=== PATIENT | female | born 1975 | race Two or more races ===

== ENCOUNTER 2020-10-02 11:54 | Outpatient (REF) | payer OTHER, SELFPAY ==
[2020-10-02 13:41] LABS: Folate 5.6 ng/mL (> or = 4.0); Vitamin B12 1102 pg/mL (200-900)
[2020-10-05 23:13] LABS: Vitamin D 25-OH, D2 14 ng/mL; Vitamin D 25-OH, D3 6 ng/mL; Vitamin D 25-OH, Total 20 ng/mL (30-100)
== END 2020-10-02 11:55 | disposition home or self-care (01) ==
LOC: HO.LAB 11:54
PROVIDERS: PCP Internal Medicine; Visit Provider Internal Medicine
DX: E53.8 Deficiency of other specified B group vitamins (principal); E55.9 Vitamin D deficiency, unspecified
CPT/HCPCS: 36415; 82306; 82607; 82746

== ENCOUNTER → 2020-10-15 13:55 | Outpatient (REF) | payer OTHER, SELFPAY ==
--- NOTE | 2020-10-15 14:00 | ECG_ITS ---
Hook-up date: 2020-10-15 14:05:00 Duration: 25:01:00 Test Indications: SYNCOPE Medications: [id number] QRS complexes 1 Ventricular ectopics which represent <1 % of total QRS comp. 5 Supraventricular ectopics which represent <1 % of total QRS comp. * Paced QRS complexs which represent % of total QRS comp. VENTRICULAR ECTOPY 1 Isolated 0 Bigeminal Cycles 0 Couplets 0 Runs 0 Beats in Runs * Beats LONGEST at * BPM at :: -- * Beats FASTEST at * BPM at :: -- SUPRAVENTRICULAR ECTOPY 3 Isolated 1 Couplets 0 Runs 0 Beats in Runs * Beats LONGEST at * BPM at :: -- * Beats FASTEST at * BPM at :: -- HEART RATES 61 MIN at 08:10:25 2020-10-16 88 AVG 177 MAX at 21:03:57 2020-10-15 LONGEST RR 1.1120 secs at 06:00:35 2020-10-16 S-T LEVELS Channel 1 - 128 mm at 14:05:00 2020-10-15 - 128 mm at 14:05:00 2020-10-15 Channel 2 - 128 mm at 14:05:00 2020-10-15 - 128 mm at 14:05:00 2020-10-15 Channel 3 - 128 mm at 03:32:41 -- - 128 mm at 03:32:41 Basic rhythm Normal sinus rhythm No long pause or profound bradycardia Rare Premature atrial complexes One 17 beat run of PACs c/w PAF No diary submitted Referred By: Aly Garcia Overread By: KRISTOFER AUGUSTIN MD
== END ==
LOC: HO.CARD 13:55
PROVIDERS: PCP Internal Medicine; Visit Provider Psychiatry & Neurology Neurology
DX: R55 Syncope and collapse (principal)
CPT/HCPCS: 93225; 93226

== ENCOUNTER 2020-10-18 13:00 | Outpatient (REF) | payer OTHER, SELFPAY ==
--- NOTE | 2020-10-18 13:05 | XR_ITS ---
EXAMINATION: XR LUMBOSACRAL SPINE CLINICAL INFORMATION: Lower back pain COMPARISON: 04/04/2013 TECHNIQUE: Three views of the lumbosacral spine. FINDINGS: No fracture or subluxation. Vertebral body height and alignment is maintained. Disc spaces are maintained. The sacroiliac joints are symmetric. The sacrum appears intact. The bowel gas pattern is unremarkable. Right upper quadrant surgical clips. XR/XR lumbar spine 2-3V IMPRESSION: Normal appearance of the lumbar spine.
--- NOTE | 2020-10-18 13:06 | CT_ITS ---
EXAMINATION: CT HEAD WITHOUT CONTRAST CLINICAL INFORMATION: Syncope COMPARISON: MRI 12/17/2018 TECHNIQUE: Contiguous axial imaging was performed from the skull base to vertex without intravenous contrast. This CT examination was performed using dose optimization techniques as appropriate, variously including the following: * Automated exposure control * Adjustment of mA and/or kV according to patient size (this includes techniques or standardized protocols for targeted exams where dose is matched to indication/reason for exam; i.e. extremities or head) Use of iterative reconstruction technique DLP: 669 mGy-cm. FINDINGS: There is no evidence of acute intracranial hemorrhage or territorial infarction. No abnormal mass effect or midline shift is seen. [place] to white matter differentiation is well preserved. No extra-axial fluid collections are identified. No hydrocephalus. No significant volume loss. There is no abnormal attenuation within the brain parenchyma. The osseous structures and soft tissues are normal. Mild opacification of the left posterior ethmoid air cells. The mastoid air cells and visualized portions of the paranasal sinuses are otherwise well aerated. CT/CT head/brain wo con IMPRESSION: No acute intracranial pathology.
== END 2020-10-18 13:01 | disposition home or self-care (01) ==
LOC: HO.CT 13:00
PROVIDERS: PCP Internal Medicine; Visit Provider Psychiatry & Neurology Neurology
DX: R55 Syncope and collapse (principal); M54.5 Low back pain
CPT/HCPCS: 70450; 72100

== ENCOUNTER 2021-01-11 16:22 | Emergency (ER) | payer OTHER, SELFPAY ==
[2021-01-11 17:59] VITALS: BP 143/95; PULSE 80; RESP 18; TEMP 36.8; O2SAT 98; BMI 37.1
[2021-01-11 18:11] LABS: MANUAL DIFF FLAG NO
[2021-01-11 18:34] LABS: Basophils Percent Auto 0.4 % (0-2); Eosinophils Absolute Auto 0.2 X10*3/uL (0.0-0.4); Hematocrit 34.5 % (37-47); Hemoglobin 11.5 g/dl (12.0-16.0); Imm Gran Abs Auto 0.03 X10*3/uL (0.00-0.03); Imm Gran Pct Auto 0.5 % (0.0-0.4); Lymphocytes Absolute Auto 2.1 X10*3/uL (1.2-4.9); Lymphocytes Percent Auto 37.3 % (20-40); Mean Corpuscular HGB Conc 33.3 g/dl (31.0-35.0); Mean Corpuscular Hemoglobin 33.2 pg (27.0-33.0); Mean Corpuscular Volume 99.7 fL (80-98); Mean Platelet Volume 10.2 fL (9.4-12.3); Monocytes Absolute Auto 0.6 X10*3/uL (0.1-1.2); Monocytes Percent Auto 10.3 % (2-11); Neutrophils Absolute Auto 2.6 X10*3/uL (2.0-8.3); Neutrophils Percent Auto 47.5 % (45-73); Platelet Count 281 X10*3/uL (160-400); Red Blood Count 3.46 X10*6/uL (4.20-5.50); Red Cell Distribution Width 12.6 % (11.0-16.0); White Blood Count 5.5 X10*3/uL (4.8-10.8)
[2021-01-11 18:37] LABS: Alanine Aminotransferase 13 U/L (0-31); Albumin Level 3.6 g/dL (3.5-5.0); Alkaline Phosphatase 76 U/L (39-117); Anion Gap 12 (12-20); Aspartate Amino Transferase 14 U/L (5-31); Bilirubin Total 0.4 mg/dL (0.0-1.0); Blood Urea Nitrogen 9 mg/dL (9-16); Calcium 8.7 mg/dL (8.4-10.2); Carbon Dioxide 26 mmol/L (22-29); Chloride 105 mmol/L (96-108); Creatinine Clr Calc Pharmacy 120.4; Estimated Glomerular Filt Rate > 60; Glucose Random 101 mg/dL (60-115); Potassium 4.1 mmol/L (3.3-5.1); Sodium 139 mmol/L (135-145); Total Protein 6.9 g/dL (6.5-8.0)
[2021-01-11 18:37] LABS: Glucose Urine UA NEG (NEG); Leukocyte Esterase Urine NEG (NEG); Nitrite Urine NEG (NEG); Specific Gravity - Urine >= 1.030 (1.005-1.025); Urine Blood 3+ (NEG); Urine Ketones NEG (NEG); Urine Protein TRACE MG/DL (NEG-TRACE)
[2021-01-11 18:43] LABS: Appearance Urine CLEAR; Color Urine YELLOW
[2021-01-11 18:44] LABS: UPreg QC Valid YES; Urine Pregnancy NEGATIVE (NEGATIVE)
[2021-01-11 19:02] LABS: Bacteria Urine TRACE /LPF; Squamous Epithelial Cell Urine TRACE /LPF; WBC Urine 0-2 /HPF (0-4)
--- NOTE | 2021-01-11 19:19 | ED_ITS ---
HPI - Female Genitourinary General Chief complaint: Vaginal Bleeding Stated complaint: vag bleeding Time Seen by Provider: 01/11/21 18:26 Source: patient Mode of arrival: ambulatory Limitations: no limitations History of Present Illness HPI Narrative: 45 y/o female with history of depression, anxiety, obesity, GERD, vertigo, syncope, leucopenia who presents to the ED with heavy vaginal bleeding for 3 days. She states she got the COVID vaccine 2 weeks ago, and has had some spotting since then. She reports the bleeding increased significantly the last 3 days with clots and cramping. She denies chance of . No fever, chills, N/V/D or constipation. No urinary symptoms. No SOB, dizziness, chest pain or sy ncope. She reports she is still getting her menses regularly once per month. This is the heaviest she has bled in 6 years when she had a similar episode of bleeding. At that time she was prescribed OCP with improvement. She has been off OCP for a few years without any issues. MD elicited complaint: vaginal bleeding Pertinent past history: tubal ligation Onset (ago): day(s) (3) Location of symptoms: vaginal Severity: severe Female Urogenital Radiation: Non-Radiating Severity scale (1-10): 8 Quality of pain: cramping Consistency: intermittent Vaginal discharge: none Vaginal bleeding: heavy, dark red and clots Exacerbating factors: none Relieving factors: none Associated symptoms: abdominal pain Treatment prior to arrival: none Sexual activity: No Patient : No Related Data Home Medications Medication Instructions Recorded Confirmed ergocalciferol (vitamin D2) 50 mcg 50 mcg PO DAILY 08/06/20 12/04/20 (2,000 unit) tablet escitalopram oxalate 10 mg tablet 10 mg PO DAILY 08/06/20 12/04/20 BuSpar 45 mg PO DAILY 11/02/20 12/04/20 Previous Rx's Medication Instructions Recorded meclizine 25 mg tablet 25 mg PO DAILY PRN 30 Days #30 tab 08/06/20 omeprazole 20 mg capsule,delayed 20 mg PO DAILY 90 Days #90 cap 12/04/20 release Allergies Allergy/AdvReac Type Severity Reaction Status Date / Time No Known Allergies Allergy Verified 12/04/20 13:41 Review of Systems Review of Systems: Constitutional: No Fever, No Chills Cardiovascular: No Chest Pain, No SOB Respiratory: No Cough, No Sputum Gastrointestinal: No Nausea, No Vomiting, No Diarrhea, + abdominal Pain Genitourinary: No Dysuria, No Urinary Frequency, No Hematuria, +Vaginal bleeding Musculoskeletal: No joint pain, No Myalgias Skin: No Skin Lesions, No rash Neuro: No Weakness, No Numbness, No Dizziness, + Headache Heme/Lymph: No Bruising, No Lymphadenopathy PMFSH Past Medical History Attestation statement: The following information was validated with the patient. Medical History Atypical mole B12 deficiency Depression with anxiety GERD (gastroesophageal reflux disease) Hypovitaminosis D Insomnia Low back pain Obese Syncope Vertigo Surgical History History of section History of laparoscopic cholecystectomy History of tooth extraction History of tubal ligation Family History Family History Father CHF (congestive heart failure) Myocardial infarction Diabetes Mother Diabetes Hypertension Family/Other FH: uterine cancer Leukemia Social History Social History Alcohol intake: never Smoking Status: Never smoker Tobacco Type: Cigarette Packs Per Day: 1 Years Smoked: 5 Use of substances other than those prescribed or required for medical reasons: No Advance Directives: No Advance Directives Information Provided: No Physical Exam Vital Signs: Vital Signs: Last Vital Signs Temp 98.3 F 01/11/21 17:59 Pulse 80 01/11/21 17:59 Resp 18 01/11/21 17:59 BP 143/95 H 01/11/21 17:59 Pulse Ox 98 01/11/21 17:59 Body Mass Index 37.1 Appearance: Alert. Oriented X3. No acute distress. Eyes: Pupils equal, round and reactive to light. ENT: Pharynx normal. Neck: Normal inspection. Neck supple. CVS: Normal heart rate and rhythm. Pulses normal. Respiratory: No respiratory distress. Breath sounds normal. Abdomen: Soft with mild lower abdominal tenderness. No rebound or guarding. +BS x4 Pelvic: moderate amount of dark blood in vaginal vault, originating from cervical os, no vaginal lesions, no tenderness. no vaginal discharge Skin: Skin warm and dry. Normal skin color. Normal skin turgor. No rashes. Extremities: No lower extremity edema. Neuro: Oriented X 3. Non-focal. Speaks in clear sentences. Course Course Course Narrative: 45 y/o female s/p tubal ligation in the past presenting with heavy vaginal bleeding for the last 3 days with associated cramping and 2 weeks of spotting prior. Blood counts today are stable from 2 months ago. Her VS are stable. Her exam showed a small amount of bleeding without clots. Pad currently dry and she had been in the ER for >1 hour. She is stable for discharge with plan to f/u with [facility] next week. She would prefer to stay off of OCP's. Given warning signs to come back to the ER, patient agrees with plan. MDM - Female Genitourinary Lab Data Result diagrams: 01/11/21 18:05 01/11/21 18:05 Labs: Lab Results 01/11/21 01/11/21 01/11/21 Range/Units 18:05 18:05 18:05 WBC 5.5 (4.8-10.8) X10*3/uL RBC 3.46 L (4.20-5.50) X10*6/uL Hgb 11.5 L (12.0-16.0) g/dl Hct 34.5 L (37-47) % MCV 99.7 H (80-98) fL MCH 33.2 H (27.0-33.0) pg MCHC 33.3 (31.0-35.0) g/dl RDW 12.6 (11.0-16.0) % Plt Count 281 (160-400) X10*3/uL MPV 10.2 (9.4-12.3) fL Immature Gran % (Auto) 0.5 H (0.0-0.4) % Neut % (Auto) 47.5 (45-73) % Lymph % (Auto) 37.3 (20-40) % [place] % (Auto) 10.3 (2-11) % Eos % (Auto) 4.0 (0-4) % Baso % (Auto) 0.4 (0-2) % Lymph # (Auto) 2.1 (1.2-4.9) X10*3/uL [place] # (Auto) 0.6 (0.1-1.2) X10*3/uL Eos # (Auto) 0.2 (0.0-0.4) X10*3/uL Baso # (Auto) 0.0 (0.0-0.2) X10*3/uL Abs Immat Gran (auto) 0.03 (0.00-0.03) X10*3/uL Absolute Neuts (auto) 2.6 (2.0-8.3) X10*3/uL Absolute Nucleated RBC 0.000 (0.0-0.012) X10*3/uL Nucleated RBC % (auto) 0.0 (0.0-0.2) /100WBC Hold Blue Top SEE NOTE Sodium 139 (135-145) mmol/L Potassium 4.1 (3.3-5.1) mmol/L Chloride 105 (96-108) mmol/L Carbon Dioxide 26 (22-29) mmol/L Anion Gap 12 (12-20) BUN 9 (9-16) mg/dL Creatinine 0.72 (0.5-1.4) mg/dL Estim Creat Clear Calc 120.4 Estimated GFR > 60 Random Glucose 101 (60-115) mg/dL Calcium 8.7 (8.4-10.2) mg/dL Total Bilirubin 0.4 (0.0-1.0) mg/dL AST 14 (5-31) U/L ALT 13 (0-31) U/L Alkaline Phosphatase 76 (39-117) U/L Total Protein 6.9 (6.5-8.0) g/dL Albumin 3.6 (3.5-5.0) g/dL Urine Color Urine Appearance Urine pH (5.0-8.0) Ur Specific [place] (1.005-1.025) Urine Protein (NEG-TRACE) MG/DL Urine Glucose (UA) (NEG) MG/DL Urine Ketones (NEG) MG/DL Urine Blood (NEG) Urine Nitrite (NEG) Ur Leukocyte Esterase (NEG) Urine RBC (0) /HPF Urine WBC (0-4) /HPF Ur Squamous Epith Cells /LPF Urine Bacteria /LPF Urine Test (NEGATIVE) 01/11/21 01/11/21 Range/Units 18:23 18:23 WBC (4.8-10.8) X10*3/uL RBC (4.20-5.50) X10*6/uL Hgb (12.0-16.0) g/dl Hct (37-47) % MCV (80-98) fL MCH (27.0-33.0) pg MCHC (31.0-35.0) g/dl RDW (11.0-16.0) % Plt Count (160-400) X10*3/uL MPV (9.4-12.3) fL Immature Gran % (Auto) (0.0-0.4) % Neut % (Auto) (45-73) % Lymph % (Auto) (20-40) % [place] % (Auto) (2-11) % Eos % (Auto) (0-4) % Baso % (Auto) (0-2) % Lymph # (Auto) (1.2-4.9) X10*3/uL [place] # (Auto) (0.1-1.2) X10*3/uL Eos # (Auto) (0.0-0.4) X10*3/uL Baso # (Auto) (0.0-0.2) X10*3/uL Abs Immat Gran (auto) (0.00-0.03) X10*3/uL Absolute Neuts (auto) (2.0-8.3) X10*3/uL Absolute Nucleated RBC (0.0-0.012) X10*3/uL Nucleated RBC % (auto) (0.0-0.2) /100WBC Hold Blue Top Sodium (135-145) mmol/L Potassium (3.3-5.1) mmol/L Chloride (96-108) mmol/L Carbon Dioxide (22-29) mmol/L Anion Gap (12-20) BUN (9-16) mg/dL Creatinine (0.5-1.4) mg/dL Estim Creat Clear Calc Estimated GFR Random Glucose (60-115) mg/dL Calcium (8.4-10.2) mg/dL Total Bilirubin (0.0-1.0) mg/dL AST (5-31) U/L ALT (0-31) U/L Alkaline Phosphatase (39-117) U/L Total Protein (6.5-8.0) g/dL Albumin (3.5-5.0) g/dL Urine Color YELLOW Urine Appearance CLEAR Urine pH 6.0 (5.0-8.0) Ur Specific [place] >= 1.030 H (1.005-1.025) Urine Protein TRACE (NEG-TRACE) MG/DL Urine Glucose (UA) NEG (NEG) MG/DL Urine Ketones NEG (NEG) MG/DL Urine Blood 3+ H (NEG) Urine Nitrite NEG (NEG) Ur Leukocyte Esterase NEG (NEG) Urine RBC 5-9 H (0) /HPF Urine WBC 0-2 (0-4) /HPF Ur Squamous Epith Cells TRACE /LPF Urine Bacteria TRACE /LPF Urine Test NEGATIVE (NEGATIVE) Critical Care Time Critical Care Time Critical Care Time: No Discharge Plan Discharge Clinical Impression: Vaginal bleeding Patient Disposition: Home, Self-Care Instructions: Dysfunctional Uterine Bleeding (ED) Additional Instructions: Your blood counts today are stable from your blood counts done 2 months ago. Your exam today did not show any significant bleeding or clots. Recommend Tylenol and/or Motrin as needed for cramping. Recommend following up with [facility] next week. If you have worsening bleeding associated with chest pain, dizziness, shortness of breath or worsening pain come back to the ER for further evaluation. Prescriptions: No Action BuSpar 45 mg PO DAILY RF: 0 escitalopram oxalate 10 mg tablet 10 mg PO DAILY RF: 0 ergocalciferol (vitamin D2) 50 mcg (2,000 unit) tablet 50 mcg PO DAILY RF: 0 meclizine 25 mg tablet 25 mg PO DAILY PRN (Reason: motion sickness) 30 Days Qty: 30 RF: 6 omeprazole 20 mg capsule,delayed release(DR/EC) 20 mg PO DAILY 90 Days Qty: 90 RF: 1 Referrals: Rex Blake MD [Physician] - 2 days (DUB)
[2021-01-11] MEDS: Acetaminophen 325 MG TABLET 975 MG PO (19:24)
== END 2021-01-11 20:23 | disposition home or self-care (01) ==
PROVIDERS: Emergency Provider Internal Medicine; PCP Internal Medicine
DX: N93.9 Abnormal uterine and vaginal bleeding, unspecified (principal); R10.9 Unspecified abdominal pain; F17.210 Nicotine dependence, cigarettes, uncomplicated
CPT/HCPCS: 36415; 80053; 81001; 81025; 85025; 99283; 99285

== ENCOUNTER 2021-01-21 11:00 | Outpatient (REF) | payer OTHER, SELFPAY ==
[2021-01-21 12:26] LABS: Hematocrit 32.6 % (37-47); Hemoglobin 10.4 g/dl (12.0-16.0); Mean Corpuscular HGB Conc 31.9 g/dl (31.0-35.0); Mean Corpuscular Hemoglobin 31.9 pg (27.0-33.0); Mean Platelet Volume 9.9 fL (9.4-12.3); Platelet Count 331 X10*3/uL (160-400); Red Blood Count 3.26 X10*6/uL (4.20-5.50); Red Cell Distribution Width 12.5 % (11.0-16.0); White Blood Count 5.6 X10*3/uL (4.8-10.8)
[2021-01-21 13:40] LABS: HCG Quantitative < 2 mIU/mL; Thyroid Stimulating Hormone 1.97 uIU/mL (0.32-4.0)
[2021-01-22 06:00] LABS: CT PCR NOT DETECTED (Not Detect.); NG PCR NOT DETECTED (Not Detect.)
[2021-01-23 21:57] LABS: HPV mRNA E6/E7 rflx Not Detected (Not Detected)
== END 2021-01-21 11:01 | disposition home or self-care (01) ==
LOC: HO.LAB 11:00
PROVIDERS: PCP Internal Medicine; Visit Provider Obstetrics & Gynecology
DX: Z01.419 Encounter for gynecological examination (general) (routine) without abnormal findings (principal); Z11.51 Encounter for screening for human papillomavirus (HPV); Z11.3 Encounter for screening for infections with a predominantly sexual mode of transmission; N92.1 Excessive and frequent menstruation with irregular cycle
CPT/HCPCS: 36415; 84443; 84702; 85027; 87491; 87591; 87624; 88142

== ENCOUNTER 2021-02-05 13:48 | Outpatient (REF) | payer OTHER, SELFPAY | END 2021-02-05 13:49 | disposition home or self-care (01) | LOC: HO.LAB 13:48 | PROVIDERS: PCP Internal Medicine; Visit Provider Obstetrics & Gynecology | DX: N92.1 Excessive and frequent menstruation with irregular cycle (principal); E53.8 Deficiency of other specified B group vitamins; E55.9 Vitamin D deficiency, unspecified; E66.9 Obesity, unspecified; Z68.37 Body mass index [BMI] 37.0-37.9, adult; Z98.51 Tubal ligation status | CPT/HCPCS: 58100; 88305 ==

== ENCOUNTER 2021-03-04 15:07 | Outpatient (REF) | payer OTHER, SELFPAY ==
--- NOTE | ~2021-03-04 | US_ITS ---
EXAMINATION: PELVIC ULTRASOUND CLINICAL INFORMATION: Excessive/frequent menstruation COMPARISON: Previous pelvic ultrasound November 2016 TECHNIQUE: Transabdominal and transvaginal pelvic ultrasound was performed. Transvaginal exam was performed for better visualization of the uterus and ovaries. FINDINGS: The uterus is anteverted and measures 10.1 x 5 x 5.1 cm in dimension. There is a 2.7 x 2.1 x 2.3 cm hypoechoic lesion in the posterior uterine fundus suggestive of a fibroid that is similar to November 2016 exam. This measured 2.4 x 1.9 x 2.3 cm on 2017 exam and does not appear appreciably changed. No other focal uterine lesion is seen. Endometrial thickness is normal measuring 0.9 cm. There are nabothian cysts in the cervix.. The right ovary measures 3.1 x 2.5 x 2.9 cm. There is a 1.5 x 1.5 x 1 cm simple cyst. There is a complex multiloculated cystic structure in the right adnexa measuring approximately 1 x 4 cm. Appearance is questionable for a complex multiloculated adnexal or paraovarian cyst versus possible hydrosalpinx. This is new compared to previous exam November 2016. The left ovary is normal-appearing and measures 3.1 x 2.6 x 2.6 cm. There is no fluid in the pelvis. US/US transvaginal IMPRESSION: 2.7 x 2.1 x 2.3 cm fundal uterine fibroid. Normal thickness endometrium. 1.5 x 1.5 x 1 cm simple right ovarian cyst. 1 x 4 cm multiloculated right adnexal cyst versus hydrosalpinx. This is new from 2017 exam.
--- NOTE | ~2021-03-04 | MM_ITS ---
EXAMINATION: MM SCREENING DIGITAL BREAST TOMOSYNTHESIS, BILATERAL CLINICAL INFORMATION: Screening. Asymptomatic. The lifetime risk of breast cancer based on the Tyrer-Cuzick Model is 9%. COMPARISON: Mammography: 12/24/2018, 11/27/2017, 11/24/2017, 05/16/2016 TECHNIQUE: Digital breast tomosynthesis is performed in both the craniocaudal and mediolateral oblique views along with computer-aided detection (CAD). Synthesized 2D images are generated from the tomosynthesis. FINDINGS: The breasts are extremely dense, which lowers the sensitivity of mammography (ACR BI-RADS breast composition Category d). There are no significant masses, abnormal calcifications, or other abnormalities. Parenchymal pattern is similar to prior exams. No developing density. The axilla and skin contours are unremarkable. MM/MM tomosynthesis screening BI IMPRESSION: No mammographic evidence of malignancy. ASSESSMENT: BI-RADS 1: Negative RECOMMENDATION: Routine annual mammography screening. This patient's information was entered into a reminder system with a target due date for their next mammogram.
--- NOTE | ~2021-03-04 | US_ITS ---
EXAMINATION: PELVIC ULTRASOUND CLINICAL INFORMATION: Excessive/frequent menstruation COMPARISON: Previous pelvic ultrasound November 2016 TECHNIQUE: Transabdominal and transvaginal pelvic ultrasound was performed. Transvaginal exam was performed for better visualization of the uterus and ovaries. FINDINGS: The uterus is anteverted and measures 10.1 x 5 x 5.1 cm in dimension. There is a 2.7 x 2.1 x 2.3 cm hypoechoic lesion in the posterior uterine fundus suggestive of a fibroid that is similar to November 2016 exam. This measured 2.4 x 1.9 x 2.3 cm on 2017 exam and does not appear appreciably changed. No other focal uterine lesion is seen. Endometrial thickness is normal measuring 0.9 cm. There are nabothian cysts in the cervix.. The right ovary measures 3.1 x 2.5 x 2.9 cm. There is a 1.5 x 1.5 x 1 cm simple cyst. There is a complex multiloculated cystic structure in the right adnexa measuring approximately 1 x 4 cm. Appearance is questionable for a complex multiloculated adnexal or paraovarian cyst versus possible hydrosalpinx. This is new compared to previous exam November 2016. The left ovary is normal-appearing and measures 3.1 x 2.6 x 2.6 cm. There is no fluid in the pelvis. US/US pelvic complete IMPRESSION: 2.7 x 2.1 x 2.3 cm fundal uterine fibroid. Normal thickness endometrium. 1.5 x 1.5 x 1 cm simple right ovarian cyst. 1 x 4 cm multiloculated right adnexal cyst versus hydrosalpinx. This is new from 2017 exam.
== END 2021-03-04 15:08 | disposition home or self-care (01) ==
LOC: HO.MAMMO 15:07
PROVIDERS: Visit Provider Obstetrics & Gynecology
DX: Z12.31 Encounter for screening mammogram for malignant neoplasm of breast (principal); N92.1 Excessive and frequent menstruation with irregular cycle
CPT/HCPCS: 76830; 76856; 77063; 77067

== ENCOUNTER → 2021-03-11 11:41 | Outpatient (BNVA) | payer OTHER, SELFPAY | PROVIDERS: PCP Internal Medicine; Visit Provider Obstetrics & Gynecology ==

== ENCOUNTER 2021-06-10 10:14 | Outpatient (REF) | payer OTHER, SELFPAY ==
--- NOTE | ~2021-06-10 | US_ITS ---
EXAMINATION: US PELVIS CLINICAL INFORMATION: Follow-up ovarian cyst COMPARISON: Previous pelvic ultrasound most recent February 2021 TECHNIQUE: Ultrasound of the pelvis is performed using both transabdominal and transvaginal transducers along with Doppler. Transvaginal imaging is performed due to inadequate visualization transabdominally. FINDINGS: Is anteverted and measures 9.3 x 5.2 x 5.5 cm in dimension. There is a 2.4 x 2.3 x 2.4 cm posterior fundal uterine fibroid. No other focal uterine lesion is seen. Endometrial thickness is normal measuring 2 mm. There is a nabothian cyst in the cervix. The right ovary measures 3.3 x 2.1 x 1.9 cm. There is a bilobed right adnexal cyst measuring 2.9 x 1.6 x 1.8 cm. This is slightly decreased from 4 x 1 x 1.5 cm on previous exam. The left ovary is normal-appearing and measures 2.8 x 1.5 x 2.6 cm. There is no fluid in the pelvis. US/US pelvic and transvaginal IMPRESSION: Interval decrease in right adnexal cyst now measuring 2.9 x 1.6 x 1.6 cm compared to 4 x 1 x 1.5 cm on 03/04/2021 exam. Small fundal uterine fibroid.
[2021-06-10 10:52] LABS: Hematocrit 34.4 % (37-47); Mean Corpuscular Hemoglobin 30.4 pg (27.0-33.0); Mean Platelet Volume 9.8 fL (9.4-12.3); Platelet Count 347 X10*3/uL (160-400); Red Blood Count 3.62 X10*6/uL (4.20-5.50); Red Cell Distribution Width 14.8 % (11.0-16.0); White Blood Count 5.1 X10*3/uL (4.8-10.8)
[2021-06-10 11:27] LABS: Alanine Aminotransferase 12 U/L (0-31); Albumin Level 3.5 g/dL (3.5-5.0); Alkaline Phosphatase 74 U/L (39-117); Anion Gap 10 (12-20); Aspartate Amino Transferase 13 U/L (5-31); Bilirubin Total 0.3 mg/dL (0.0-1.0); Blood Urea Nitrogen 10 mg/dL (9-16); Calcium 8.3 mg/dL (8.4-10.2); Carbon Dioxide 25 mmol/L (22-29); Chloride 106 mmol/L (96-108); Cholesterol 149 mg/dL; Estimated Glomerular Filt Rate > 60; Glucose Fasting 104 mg/dL (60-99); HDL Cholesterol 39 mg/dL; Iron 53 mcg/dL (30-160); LDL Cholesterol Calculated 101 mg/dl; Percent Iron Saturation 18 % (15-50); Potassium 4.1 mmol/L (3.3-5.1); Sodium 137 mmol/L (135-145); Total Iron Binding Capacity 297 mcg/dL (228-428); Total Protein 6.7 g/dL (6.5-8.0); Triglycerides 47 mg/dL; Unsaturated Iron Binding 244 ug/dL
[2021-06-10 12:26] LABS: Folate 5.2 ng/mL (> or = 4.0); Vitamin B12 708 pg/mL (200-900)
[2021-06-11 18:17] LABS: CA-125 9 U/mL (<35)
[2021-06-14 14:02] LABS: Vitamin D 25-OH, D2 7 ng/mL; Vitamin D 25-OH, D3 18 ng/mL; Vitamin D 25-OH, Total 25 ng/mL (30-100)
== END 2021-06-10 10:15 | disposition home or self-care (01) ==
LOC: HO.US 10:14
PROVIDERS: Absent Provider Internal Medicine; PCP Internal Medicine; Visit Provider Obstetrics & Gynecology
DX: D64.9 Anemia, unspecified (principal); E55.9 Vitamin D deficiency, unspecified; E66.9 Obesity, unspecified; E78.5 Hyperlipidemia, unspecified; N83.299 Other ovarian cyst, unspecified side
CPT/HCPCS: 36415; 76830; 76856; 80053; 80061; 82306; 82607; 82746; 83540; 85027; 86304

== ENCOUNTER → 2021-06-24 11:48 | Outpatient (BNVA) | payer OTHER, SELFPAY | PROVIDERS: Visit Provider Obstetrics & Gynecology ==

== ENCOUNTER 2021-09-25 13:22 | Outpatient (REF) | payer OTHER, SELFPAY ==
[2021-09-25 15:33] LABS: MANUAL DIFF FLAG NO
[2021-09-25 16:14] LABS: Basophils Percent Auto 0.2 % (0-2); Eosinophils Absolute Auto 0.3 X10*3/uL (0.0-0.4); Eosinophils Percent Auto 6.4 % (0-4); Hematocrit 30.7 % (37.0-47.0); Hemoglobin 9.9 g/dl (12.0-16.0); Imm Gran Abs Auto 0.01 X10*3/uL (0.00-0.03); Imm Gran Pct Auto 0.2 % (0.0-0.4); Lymphocytes Absolute Auto 1.9 X10*3/uL (1.2-4.9); Lymphocytes Percent Auto 44.3 % (20-40); Mean Corpuscular HGB Conc 32.2 g/dl (31.0-35.0); Mean Corpuscular Hemoglobin 32.2 pg (27.0-33.0); Mean Platelet Volume 10.5 fL (9.4-12.3); Monocytes Absolute Auto 0.3 X10*3/uL (0.1-1.2); Monocytes Percent Auto 7.8 % (2-11); Neutrophils Absolute Auto 1.8 x10*3/uL (2.0-8.3); Neutrophils Percent Auto 41.1 % (45-73); Platelet Count 271 X10*3/uL (160-400); Red Blood Count 3.07 X10*6/uL (4.20-5.50); Red Cell Distribution Width 12.7 % (11.0-16.0); White Blood Count 4.4 X10*3/uL (4.8-10.8)
[2021-09-25 16:46] LABS: HCG Quantitative < 2 mIU/mL; Thyroid Stimulating Hormone 1.37 uIU/mL (0.32-4.0)
== END 2021-09-25 13:23 | disposition home or self-care (01) ==
LOC: HO.LAB 13:22
PROVIDERS: PCP Internal Medicine; Visit Provider Obstetrics & Gynecology
DX: N92.1 Excessive and frequent menstruation with irregular cycle (principal); U07.1 COVID-19; N83.299 Other ovarian cyst, unspecified side; E53.8 Deficiency of other specified B group vitamins; E55.9 Vitamin D deficiency, unspecified; E66.01 Morbid (severe) obesity due to excess calories; F41.8 Other specified anxiety disorders; Z68.37 Body mass index [BMI] 37.0-37.9, adult; Z87.891 Personal history of nicotine dependence; Z90.49 Acquired absence of other specified parts of digestive tract; Z98.51 Tubal ligation status; Z83.3 Family history of diabetes mellitus; Z82.49 Family history of ischemic heart disease and other diseases of the circulatory system; Z80.49 Family history of malignant neoplasm of other genital organs
CPT/HCPCS: 36415; 84443; 84702; 85025

== ENCOUNTER → 2021-10-15 10:55 | Outpatient (BNVA) | payer OTHER, SELFPAY | PROVIDERS: PCP Internal Medicine; Visit Provider Obstetrics & Gynecology | DX: N92.1 Excessive and frequent menstruation with irregular cycle (principal) | CPT/HCPCS: 99212 ==

== ENCOUNTER 2021-10-18 13:44 | Outpatient (REF) | payer OTHER, SELFPAY ==
--- NOTE | 2021-10-18 16:25 | MHC.AU.ANR ---
Adult Audiological Evaluation Date of Visit: 10/18/21 Health Data Analyst Used: Nigerian- By Phone Reason for Appointment: Patient was seen for concerns of gradual hearing loss. She reports having to turn the television up loud and asks for repetitions often. She also reports having difficulties understanding speech on the phone or in groups. She states that her grandfather and cousin were both diagnosed with hearing loss while they were younger. She reports some balance issues, but denies having a better ear or tinnitus. Does patient feel they have a hearing loss?: Yes If Yes, Which Ear?: Both Ears Has hearing been tested previously?: No Ear History: Family History of Hearing Loss?: Yes: Grandfather and cousins from a young age Medical History: Medical History: Dizziness or Unsteadiness Medical History (Other): Anemia Allergies: No known allergies Medication List: [BuSpar 45 mg PO DAILY], ergocalciferol (vitamin D2) 50 mcg PO DAILY 90 days, escitalopram oxalate 10 mg PO DAILY, ferrous sulfate 325 mg PO DAILY 30 days, meclizine 25 mg PO DAILY 30 days PRN, medroxyprogesterone (Provera) 10 mg PO DAILY 30 days, omeprazole 20 mg PO DAILY 90 days Otoscopy: Right Ear: Unremarkable Left Ear: Unremarkable Tympanometry: Tympanometry performed due to: To assess integrity of the middle ear system Right Ear: Hypercompliant Middle Ear System (Type Ad) Left Ear: Hypercompliant Middle Ear System (Type Ad) Hearing Evaluation: Transducer(s) Used: Insert Earphones, Bone Conduction Method: Conventional Audiometry Stimuli Used: Pure Tones Right Ear: Description of Hearing: Mild sloping to a moderate sensorineural hearing loss from 250 to 1000 Hz, rising to within normal limits through 8000 Hz thereafter. Left Ear: Description of Hearing: Mild sloping to a moderate sensorineural hearing loss from 250 to 4000 Hz, rising to a mild sensorineural hearing loss through 8000 Hz thereafter. Speech Recognition Threshold (SRT): Method Used: Recorded Lists Stimuli Used: Nigerian Trisyllable Words Right Ear: 45 dB HL Left Ear: 40 dB HL Word Discrimination: Method: Recorded Lists Word Lists Used: Lista Bisil?bica (Nigerian) Right Ear: 100% at 80 dB HL Left Ear: 100% at 80 dB HL Interpretation of Results: Mild to moderate sensorineural hearing loss. Patient would benefit from the use of bilateral hearing devices. Recommendations: Audiological re-evaluation in one year. Trial with amplification is recommended. Medical clearance from a physician is required before fitting. Hearing Aid Fitting will be scheduled when all materials arrive. Patient is interested in trying hearing aids. Discussed options and patient would like to try TATE style hearing aids binaurally. Return for hearing aid fitting once medical clearance is obtained and devices have arrived. An audiological re-evaluation is recommended in one year to monitor any changes in hearing. Diagnosis: Primary Diagnosis: H90.3 Bilateral Sensorineural Hearing Loss Services Performed: Services Performed: Comprehensive Audiological Evaluation (CPT 58661) Tympanometry (CPT 81795) Signature: Student/Clinical Fellow: Yes: Ana Gilmore B.A., [employer] Supply Chain Analyst I have reviewed/agreed with student/fellow documentation: Yes Provider: Rogers Neves, [facility]
--- NOTE | 2021-10-18 16:27 | MHC.AU.MED ---
Medical Clearance for Hearing Instrumentation Date: 10/18/21 Patient Name: Marquita Grady Date of : 1975 Referring Provider: Pili Rudd MD We have seen your patient on 10/18/21 and have determined that they are a candidate for amplification (See accompanying report). Specifically, they would benefit from: Hearing aid use in both ears There is a statute that addresses Medical Evaluation Requirements prior to fitting a patient with a hearing aid. According to [place] statute 265 CMR:6.03(1), (a) General. Except as provided in 265 CMR 6.03(1)(b), a wood room supervisor shall not sell a hearing aid unless the prospective user has presented to the wood room supervisor a written statement signed by a licensed physician that states that the patient's hearing loss has been medically evaluated and the patient may be considered a candidate for a hearing aid. The medical evaluation must have taken place within the preceding six months. Please note: Due to the [place] Statute referenced above, we cannot accept a signature other than that of a licensed physician. COMMUNICATIONS DEPARTMENT HEAD and [place] signatures cannot be accepted. I am in agreement with the above recommendation. There is no medical contraindication for hearing instrumentation. Physician Signature Date Physician Name (Printed)
--- NOTE | 2021-10-18 16:27 | MHC.AU.HAS ---
Hearing Aid Evaluation Date of Visit: 10/18/21 Electrician Elevator Maintenance Used: Maltese- By Phone Historical Information: Description of Hearing: Mild to moderate sensorineural hearing loss bilaterally. Current personal amplification information, if applicable: None Summary: Based on type and degree of hearing loss, as well as patient's shared hearing difficulties, binaural amplification is recommended to help facilitate improved communication. Discussed hearing aid styles and technologies. She is interested in trying TATE style rechargeable hearing aids. She is interested in streaming with her iPhone. Hearing Aid Prescription: Based on the individual?s shared listening needs, communication environments, dexterity, desire for connectivity, and personal preferences, the following prescription for amplification has been made: Right ear: Tobacco Wetter: Phonak Model: Audeo P70-R Battery Size: Rechargeable Color: P4 Semiconductor Packages Platemaker: 0 M Left ear: Left ear prescription to be same as Right Hearing Aid above: Tobacco Wetter: Phonak Model: Audeo P70-R Battery Size: Rechargeable Color: P4 [employer] Packages Platemaker: 0 M Action Taken/Action Needed: Medical Clearance to be requested from PCP/ENT. Hearing Instrument Fitting to be scheduled when materials arrive. Hearing aids will be ordered once MD clearance is received. Primary Diagnosis: H90.3 Bilateral Sensorineural Hearing Loss Signature: Student/Clinical Fellow: Yes: Ana Gilmore B.A., Rogers Traffic Survey Technician I have reviewed/agreed with student/fellow documentation: Yes Provider: Rogers Neves, [facility]
== END 2021-10-18 13:45 | disposition home or self-care (01) ==
LOC: HO.SH 13:44
PROVIDERS: Visit Provider Internal Medicine
DX: Z01.118 Encounter for examination of ears and hearing with other abnormal findings (principal); Z46.1 Encounter for fitting and adjustment of hearing aid; H90.3 Sensorineural hearing loss, bilateral
CPT/HCPCS: 92557; 92567; 92591

== ENCOUNTER 2021-10-30 14:21 | Outpatient (REF) | payer OTHER, SELFPAY | END 2021-10-30 14:22 | disposition home or self-care (01) | LOC: HO.HAP 14:21 | PROVIDERS: Visit Provider Internal Medicine | DX: Z46.1 Encounter for fitting and adjustment of hearing aid (principal); H90.3 Sensorineural hearing loss, bilateral | CPT/HCPCS: V5011; V5020; V5160; V5261 ==

== ENCOUNTER 2021-11-14 13:51 | Outpatient (REF) | payer OTHER, SELFPAY | END 2021-11-14 13:52 | disposition home or self-care (01) | LOC: HO.HAP 13:51 | PROVIDERS: Visit Provider Internal Medicine | DX: Z13.89 Encounter for screening for other disorder (principal) ==

== ENCOUNTER 2021-11-19 07:16 | Outpatient (REF) | payer OTHER, SELFPAY | END 2021-11-19 07:17 | disposition home or self-care (01) | LOC: HO.MDS 07:16 | PROVIDERS: PCP Internal Medicine; Visit Provider Internal Medicine | DX: D50.9 Iron deficiency anemia, unspecified (principal) | CPT/HCPCS: 96365; 96366; J1200; J1750; Q0163 ==

== ENCOUNTER 2022-03-18 12:19 | Outpatient (REF) | payer OTHER, SELFPAY ==
--- NOTE | ~2022-03-18 | US_ITS ---
EXAMINATION: US PELVIS CLINICAL INFORMATION: Ovarian cyst COMPARISON: Previous pelvic ultrasound most recent May 2021 TECHNIQUE: Ultrasound of the pelvis is performed using both transabdominal and transvaginal transducers along with Doppler. Transvaginal imaging is performed due to inadequate visualization transabdominally. FINDINGS: The uterus is anteverted and measures 10.6 x 5.1 x 6.7 cm in dimension. There is a hypoechoic lesion in the right uterine fundus measuring 2.3 x 2 x 2.5 cm that is suggestive of a fibroid. Endometrial thickness is upper normal measuring 1.5 cm. There are nabothian cysts in the cervix. The right ovary is enlarged and measures 6.4 x 5.2 x 4.7 cm. There are 2 adjacent right ovarian cysts measuring 3.5 x 3.2 x 3.4 cm and 4.5 x 3.4 x 3.5 cm that are new. There is an adjacent paraovarian or adnexal simple cyst measuring 2.5 x 1.9 x 2.8 cm that is similar to previous exam. The left ovary is normal-appearing and measures 2.9 x 2.8 x 1.7 cm. There is no fluid in the pelvis. US/US pelvic and transvaginal IMPRESSION: Enlarged right ovary and 2 new cysts measuring 3.5 x 3.2 x 3.4 cm and 4.5 x 3.4 x 3.5 cm. Stable right adnexal or paraovarian cyst measuring 2.5 x 1.9 x 2.8 cm.
== END 2022-03-18 12:20 | disposition home or self-care (01) ==
LOC: HO.US 12:19
PROVIDERS: PCP Internal Medicine; Visit Provider Obstetrics & Gynecology
DX: N83.299 Other ovarian cyst, unspecified side (principal)
CPT/HCPCS: 76830; 76856

== ENCOUNTER → 2022-04-01 10:03 | Outpatient (BNVA) | payer OTHER, SELFPAY | PROVIDERS: PCP Internal Medicine; Visit Provider Obstetrics & Gynecology | DX: N83.299 Other ovarian cyst, unspecified side (principal); D21.9 Benign neoplasm of connective and other soft tissue, unspecified; N92.1 Excessive and frequent menstruation with irregular cycle | CPT/HCPCS: 99212 ==

== ENCOUNTER 2022-04-09 18:54 | Outpatient (REF) | payer OTHER, SELFPAY ==
--- NOTE | ~2022-04-09 | MR_ITS ---
EXAMINATION: MRI PELVIS WITH AND WITHOUT CONTRAST CLINICAL INFORMATION: Other ovarian cyst. The patient describes right lower quadrant pain and heavy menstrual bleeding COMPARISON: Ultrasound 03/18/2022 TECHNIQUE: Multiple routine MRI sequences through the pelvis were obtained on a high-field 1.5 Anay MRI before and after the uneventful administration of 10 mL of Gadavist gadolinium-based IV contrast. FINDINGS: UTERUS: Anteverted uterus has a normal configuration and measures 8.8 x 5.7 x 5.8 cm (ymiiwt-bc-[id number] x anterior-posterior x transverse). The endometrial stripe is normal for the stage of the patient's menstrual cycle, 1.3 cm in thickness (date of last menstrual period 03/23/2022, exam performed 04/09/2022). Junctional zone is normal in signal and thickness. There is a 2 cm dark T2 structure in the posterior uterine fundus consistent with a leiomyoma. There is a lower uterine segment section scar. CERVIX: Normal. VAGINA: There is a 2.8 cm unilocular cystic structure in the left posterior vaginal fornix. This could represent an exophytic nabothian cyst or more likely a vaginal wall cyst, such as a Medina's duct cyst. It is widely separate from the urethra. RIGHT OVARY: The right ovary measures 5 x 5 x 2.4 cm. There are multiple T2 bright physiologic follicular cysts measuring at most 2.4 cm in greatest dimension. One seen inferiorly may have a single thin septation. No suspicious or concerning features such as thick septations or mural nodules. LEFT OVARY: The left ovary measures 2.0 x 4.2 x 2.0 cm. There are several small subcentimeter T2 bright physiologic follicular cysts. Exophytic from the superior aspect of the ovary is a 1.5 cm cyst with several thin internal septations. No thick septations or mural nodularity seen. KIDNEYS: Two normally positioned kidneys are seen. No hydronephrosis. BLADDER: Urinary bladder normal. PELVIC FREE FLUID: No free fluid or ascites. LYMPH NODES: No pathologically enlarged lymph nodes. OSSEOUS STRUCTURES: No acute or suspicious osseous abnormalities. MR/MR pelvis wo/w con IMPRESSION: Several physiologic follicular cysts are seen in the right ovary. These are expected physiologic findings in a reproductive age female patient for which no imaging follow-up would be recommended. In addition to several physiologic follicular cysts in the left ovary, there is a 1.5 cm cyst exophytic from the superior aspect of the left ovary with several thin internal septations. This is not the appearance of the simple physiologic cyst. Recommend follow-up MRI to assess for stability vs. resolution. 2.8 cm unilocular cyst in the left posterior vaginal fornix, most likely a vaginal wall cyst. 2 cm posterior fundal leiomyoma. section scar. The report will be called to the ordering clinician by a [place] Radiology Physician Nurse Navigator.
== END 2022-04-09 18:55 | disposition home or self-care (01) ==
LOC: HO.MRI 18:54
PROVIDERS: Visit Provider Obstetrics & Gynecology
DX: N83.299 Other ovarian cyst, unspecified side (principal)
CPT/HCPCS: 72197; A9585

== ENCOUNTER 2022-04-17 10:43 | Outpatient (REF) | payer OTHER, SELFPAY ==
[2022-04-17 11:04] LABS: MANUAL DIFF FLAG NO
[2022-04-17 12:17] LABS: Basophils Percent Auto 0.4 % (0-2); Eosinophils Absolute Auto 0.2 X10*3/uL (0.0-0.4); Eosinophils Percent Auto 4.4 % (0-4); Hematocrit 34.7 % (37.0-47.0); Hemoglobin 11.3 g/dl (12.0-16.0); Imm Gran Abs Auto 0.02 X10*3/uL (0.00-0.03); Imm Gran Pct Auto 0.4 % (0.0-0.4); Lymphocytes Absolute Auto 1.5 X10*3/uL (1.2-4.9); Mean Corpuscular HGB Conc 32.6 g/dl (31.0-35.0); Mean Corpuscular Hemoglobin 32.8 pg (27.0-33.0); Mean Corpuscular Volume 100.9 fL (80.0-98.0); Monocytes Absolute Auto 0.5 X10*3/uL (0.1-1.2); Monocytes Percent Auto 8.5 % (2-11); Neutrophils Absolute Auto 3.2 x10*3/uL (2.0-8.3); Neutrophils Percent Auto 58.3 % (45-73); Platelet Count 340 X10*3/uL (160-400); Red Blood Count 3.44 X10*6/uL (4.20-5.50); Red Cell Distribution Width 13.1 % (11.0-16.0); White Blood Count 5.5 X10*3/uL (4.8-10.8)
[2022-04-17 12:46] LABS: Alanine Aminotransferase 12 U/L (0-31); Albumin Level 3.8 g/dL (3.5-5.0); Alkaline Phosphatase 68 U/L (39-117); Anion Gap 11 (12-20); Aspartate Amino Transferase 12 U/L (5-31); Bilirubin Total 0.4 mg/dL (0.0-1.0); Blood Urea Nitrogen 6 mg/dL (9-16); Calcium 8.3 mg/dL (8.4-10.2); Carbon Dioxide 23 mmol/L (22-29); Chloride 106 mmol/L (96-108); Cholesterol 147 mg/dL; Estimated Glomerular Filt Rate > 60; Glucose Fasting 94 mg/dL (60-99); HDL Cholesterol 31 mg/dL; Iron 61 mcg/dL (30-160); LDL Cholesterol Calculated 105 mg/dl; Percent Iron Saturation 26 % (15-50); Potassium 3.9 mmol/L (3.3-5.1); Sodium 136 mmol/L (135-145); Total Iron Binding Capacity 237 mcg/dL (228-428); Total Protein 7.1 g/dL (6.5-8.0); Triglycerides 55 mg/dL; Unsaturated Iron Binding 176 ug/dL
[2022-04-19 09:01] LABS: CA-125 10 U/mL (<35)
[2022-04-22 15:56] LABS: Vitamin D 25-OH, D2 <4 ng/mL; Vitamin D 25-OH, D3 11 ng/mL; Vitamin D 25-OH, Total 11 ng/mL (30-100)
== END 2022-04-17 10:44 | disposition home or self-care (01) ==
LOC: HO.LAB 10:43
PROVIDERS: PCP Internal Medicine; Visit Provider Obstetrics & Gynecology
DX: Z00.00 Encounter for general adult medical examination without abnormal findings (principal); D64.9 Anemia, unspecified; E55.9 Vitamin D deficiency, unspecified; N83.299 Other ovarian cyst, unspecified side
CPT/HCPCS: 36415; 80053; 80061; 82306; 83540; 85025; 86304

== ENCOUNTER 2022-04-23 10:13 | Outpatient (REF) | payer OTHER, SELFPAY ==
--- NOTE | ~2022-04-23 | MM_ITS ---
EXAMINATION: MM SCREENING DIGITAL BREAST TOMOSYNTHESIS, BILATERAL CLINICAL INFORMATION: Screening. Asymptomatic. The lifetime risk of breast cancer based on the Tyrer-Cuzick Model is 8%. COMPARISON: Mammography: 03/04/2021, 12/24/2018, 11/27/2017 TECHNIQUE: Digital breast tomosynthesis is performed in both the craniocaudal and mediolateral oblique views along with computer-aided detection (CAD). Synthesized 2D images are generated from the tomosynthesis. FINDINGS: The breasts are extremely dense, which lowers the sensitivity of mammography (ACR BI-RADS breast composition Category d). Parenchymal pattern is similar to prior studies. No developing density, significant mass, architectural abnormality. No abnormal calcifications. The axilla and skin contours are unremarkable. No significant changes. MM/MM tomosynthesis screening BI IMPRESSION: No mammographic evidence of malignancy. ASSESSMENT: BI-RADS 1: Negative RECOMMENDATION: Routine annual mammography screening. This patient's information was entered into a reminder system with a target due date for their next mammogram.
== END 2022-04-23 10:14 | disposition home or self-care (01) ==
LOC: HO.MAMMO 10:13
PROVIDERS: PCP Internal Medicine; Visit Provider Internal Medicine
DX: Z12.31 Encounter for screening mammogram for malignant neoplasm of breast (principal)
CPT/HCPCS: 77063; 77067

== ENCOUNTER → 2022-04-24 11:02 | Outpatient (BNVA) | payer OTHER, SELFPAY | PROVIDERS: PCP Internal Medicine; Visit Provider Obstetrics & Gynecology | DX: N83.299 Other ovarian cyst, unspecified side (principal) | CPT/HCPCS: 99212 ==

== ENCOUNTER 2022-05-19 13:50 | Outpatient (REF) | payer OTHER, SELFPAY | END 2022-05-19 13:51 | disposition home or self-care (01) | LOC: HO.SH 13:50 | PROVIDERS: Visit Provider Internal Medicine | DX: Z13.89 Encounter for screening for other disorder (principal) ==

== ENCOUNTER 2022-07-07 10:23 | Outpatient (REF) | payer OTHER, SELFPAY ==
--- NOTE | 2022-07-07 12:19 | MHC.AU.HFU ---
Hearing Instrument Follow-Up- Binaural Date of Visit: 07/07/22 Right Ear: Asset Management Analyst: Phonak Audeo P70-R SN: [id number] Color: P4 Repair Warranty: 01/18/2025 Loss and Damage Warranty: Used 2021 Battery Size: Rechargeable Private Mortgage Banker Safe: 0 M Type of Mold: Medium open dome Type of Wax Guard: Cerushield Dispensed By: [facility] Date of Fittin10/30/2021 Left Ear: Asset Management Analyst: Phonak Audeo P70-R SN: [id number] Color: P4 Repair Warranty: 01/18/2025 Loss and Damage Warranty: Used 2021 Battery Size: Rechargeable Private Mortgage Banker Safe: 0 M Type of Mold: Medium open dome Type of Wax Guard: Cerushield Dispensed By: [facility] Date of Fittin10/30/2021 Follow-Up Summary: Interpreted by [facility] Powder And Primer Canning Leader: Susannah Juárez returned to pick up and delivery driver her loss and damage replacement hearing aids and ceramic research engineer with power supply. Her hearing aids were reprogrammed using her previous settings. Feedback manager occupational was performed. Marquita reported good overall sound quality and comfortable volume. Reviewed importance of consistent use in reacclimating to the hearing aids. Reexplained care, use, and maintenance including changing wax guard and dome. Discussed charging, LED light indicators, manually turning on/off, and volume control. Practiced insertion and removal. Marquita reported that she does not need assistance pairing the hearing aids to her cellphone and can do it herself at home. Recommendations: Hearing instrument maintenance in 6 months, or sooner if needed. Marquita will call if problems arise. Diagnosis Code(s): Primary Diagnosis: H90.3 Bilateral Sensorineural Hearing Loss Signature: Provider: Barbara Pickard, [facility]
== END 2022-07-07 10:24 | disposition home or self-care (01) ==
LOC: HO.HAP 10:23
PROVIDERS: Visit Provider Internal Medicine
DX: Z13.89 Encounter for screening for other disorder (principal)

== ENCOUNTER 2022-07-10 16:07 | Outpatient (REF) | payer OTHER, SELFPAY ==
--- NOTE | ~2022-07-10 | XR_ITS ---
EXAMINATION: XR SHOULDER, LEFT CLINICAL INFORMATION: Pain in left shoulder COMPARISON: None TECHNIQUE: AP external rotation, Grashey, scapular Y, and axillary views of the left shoulder. FINDINGS: The bones and soft tissues are normal. No fracture. Glenohumeral and acromioclavicular alignment is anatomic with normal joint space. No abnormal soft tissue calcifications. XR/XR shoulder LT min 2V IMPRESSION: No acute osseous abnormality of the left shoulder.
[2022-07-10 16:30] LABS: MANUAL DIFF FLAG NO
[2022-07-10 16:43] LABS: Basophils Percent Auto 0.4 % (0-2); Eosinophils Absolute Auto 0.2 X10*3/uL (0.0-0.4); Eosinophils Percent Auto 3.3 % (0-4); Hematocrit 36.9 % (37.0-47.0); Hemoglobin 12.2 g/dl (12.0-16.0); Imm Gran Abs Auto 0.01 X10*3/uL (0.00-0.03); Imm Gran Pct Auto 0.2 % (0.0-0.4); Lymphocytes Percent Auto 37.5 % (20-40); Mean Corpuscular HGB Conc 33.1 g/dl (31.0-35.0); Mean Corpuscular Hemoglobin 32.4 pg (27.0-33.0); Mean Corpuscular Volume 97.9 fL (80.0-98.0); Mean Platelet Volume 9.9 fL (9.4-12.3); Monocytes Absolute Auto 0.5 X10*3/uL (0.1-1.2); Monocytes Percent Auto 9.2 % (2-11); Neutrophils Absolute Auto 2.6 x10*3/uL (2.0-8.3); Neutrophils Percent Auto 49.4 % (45-73); Platelet Count 302 X10*3/uL (160-400); Red Blood Count 3.77 X10*6/uL (4.20-5.50); Red Cell Distribution Width 12.6 % (11.0-16.0); White Blood Count 5.2 X10*3/uL (4.8-10.8)
[2022-07-10 17:02] LABS: Iron 76 mcg/dL (30-160); Percent Iron Saturation 29 % (15-50); Total Iron Binding Capacity 265 mcg/dL (228-428); Unsaturated Iron Binding 189 ug/dL
[2022-07-10 17:22] LABS: Vitamin D 25-OH Total 14.5 ng/mL (>30)
== END 2022-07-10 16:08 | disposition home or self-care (01) ==
LOC: HO.LAB 16:07
PROVIDERS: Visit Provider Internal Medicine
DX: E55.9 Vitamin D deficiency, unspecified (principal); D64.9 Anemia, unspecified; M25.512 Pain in left shoulder
CPT/HCPCS: 36415; 73030; 82306; 83540; 85025

== ENCOUNTER 2022-08-13 19:14 | Emergency (ER) | payer OTHER, SELFPAY ==
--- NOTE | ~2022-08-13 | XR_ITS ---
EXAMINATION: XR CHEST CLINICAL INFORMATION: Cough. Chest wall pain. COMPARISON: 01-03-2014 TECHNIQUE: 2 views of the chest were obtained. FINDINGS: Normal symmetric lung volumes. No parenchymal consolidation. No pleural effusion. No pneumothorax. Cardiomediastinal silhouette and pulmonary vascularity are within normal limits. No acute osseous abnormalities. XR/XR chest 2V IMPRESSION: No acute findings
[2022-08-13 19:57] VITALS: BP 143/91; PULSE 120; RESP 20; TEMP 37.1; O2SAT 99; BMI 37.1
[2022-08-13] MEDS: Ibuprofen 400 MG TABLET PO (20:38)
[2022-08-13] MEDS: Acetaminophen 325 MG TABLET 975 MG PO (20:38)
[2022-08-13] MEDS: Benzonatate 100 MG CAPSULE 200 MG PO (20:38)
[2022-08-13 20:47] LABS: Influenza A PCR NEGATIVE (Negative); Influenza B PCR NEGATIVE (Negative); Resp Syncy Virus RNA Qual PCR NEGATIVE (Negative); SARS COV2 PCR INHOUSE NEGATIVE (Negative)
--- NOTE | 2022-08-13 21:02 | ED_ITS ---
HPI - URI/Sore Throat General Chief Complaint: Upper Respiratory Symptoms Stated Complaint: Wheezing/Diff Breathing Time Seen by Provider: 08/13/22 20:00 Source: patient and diplomatic interpreter Mode of arrival: ambulatory History of Present Illness HPI Narrative: 47-year-old female with history and clinical presentation of body aches, cough, sore throat, headache and left ear pain. Otherwise she denies any fever, chills, GI or symptoms. Related Data Home Medications Medication Instructions Recorded Confirmed escitalopram oxalate 10 mg tablet 10 mg PO DAILY 08/06/20 07/10/22 (Lexapro) BuSpar 45 mg PO DAILY 11/02/20 07/10/22 Previous Rx's Medication Instructions Recorded ferrous sulfate 325 mg (65 mg 325 mg PO DAILY 30 days #30 tabs 08/12/21 iron) tablet,delayed release medroxyprogesterone 10 mg tablet 10 mg PO DAILY 30 days #30 tabs 04/01/22 (Provera) omeprazole 20 mg capsule,delayed 20 mg PO DAILY 90 days #90 caps 05/20/22 release ergocalciferol (vitamin D2) 50 mcg 50 mcg PO DAILY 90 days #90 tabs 07/10/22 (2,000 unit) tablet benzonatate 200 mg capsule 200 mg PO BID PRN cough #14 caps 08/13/22 ofloxacin 0.3 % ear drops 5 drp otic (ear) left BID 7 days 08/13/22 #10 mL Allergies Allergy/AdvReac Type Severity Reaction Status Date / Time No Known Allergies Allergy Verified 07/10/22 15:35 Review of Systems Review of Systems: Pertinent positives and negatives as stated in HPI 10 point review of systems is otherwise negative. [facility] Past Medical History Source: nursing notes reviewed Medical History Aphthous ulcer Atypical mole B12 deficiency Class 2 obesity with body mass index (BMI) of 37.0 to 37.9 in adult Depression with anxiety GERD (gastroesophageal reflux disease) Hearing loss Hypovitaminosis D Insomnia Lip lesion Low back pain Mild recurrent major depression Obese Physical exam Syncope Vertigo Surgical History History of section History of laparoscopic cholecystectomy History of tooth extraction History of tubal ligation Family History Family History Father CHF (congestive heart failure) Myocardial infarction Diabetes Mother Diabetes Hypertension Family/Other FH: uterine cancer Leukemia Social History Social History Household Members: Children Housing: House Are you a primary lawn care professional to a significant other at home: No Do you presently have visiting nurse or other home services: No Alcohol intake: current Alcohol intake frequency: a few times a month Alcohol type: beer and wine Patient Tobacco Use Status: Former Tobacco user Tobacco use type: Cigarette Cigarette Packs Per Day: 1 Years Smoked: 5 e-Cigarette/Vaping Use: Never Used Second Hand Smoke Exposure: No Advance Directives: No service: No Current occupational status: unemployed Cognitive needs: No Hearing needs: No Vision needs: No Physical Exam Vital Signs: Vital Signs: Last Vital Signs Temp 98.8 F 08/13/22 19:57 Pulse 120 H 08/13/22 19:57 Resp 20 08/13/22 19:57 BP 143/91 H 08/13/22 19:57 Pulse Ox 99 08/13/22 19:57 O2 Del Method 08/13/22 19:57 BMI result Body Mass Index 37.1 VITAL SIGNS: Reviewed. GENERAL: Well developed, well nourished, in no acute distress. HEAD: Normocephalic/atraumatic EYES: PERRLA, EOMI EARS: RIGHT- Ext canals without abnormality, TMs non-bulging and non- erythematous, LEFT-Ext canals without abnormality, TMs non-bulging but perfo rated NOSE: Nares patent bilateral OROPHARYNX: no oral lesions noted, posterior pharynx clear and non-erythematous without noted tonsillar enlargement/erythema/exudates NECK: Supple, no adenopathy LUNGS: Normal breath sounds, no tachypnea/with wheeze/rhonchi/rales. No adventitious sounds or accessory muscle use. SpO2<99> CARDIOVASCULAR: Regular rate and rhythm without noted murmurs ABDOMEN: Soft, non-tender, non-distended with bowel sounds. MUSCULOSKELETAL: No tenderness, deformities, or effusions noted on gross inspection. EXTREMITIES: No cyanosis, clubbing or edema. SKIN: Inspection of the skin reveals no rashes NEUROLOGIC: Alert and oriented x 4. Strength and sensation to light touch were grossly intact x 4. Course Course Course Narrative: 47-year-old female with history and clinical presentation consistent with upper respiratory infection to include cough which is likely responsible for the remaining symptoms such as headache as well as chest wall discomfort. There is nothing on clinical exam to suggest any acute respiratory issue and review of chest x-ray as well as viral testing is negative for acute findings. Patient will receive treatment for her ruptured TM and be discharged home in stable condition. Medications Administered Discontinued Medications Generic Name Dose Route Start Last Admin Trade Name Freq PRN Reason Stop Dose Admin Acetaminophen 975 mg 08/13/22 20:30 08/13/22 20:38 Acetaminophen 325 Mg Tablet PO 08/13/22 20:31 975 mg ONCE ONE Administration Benzonatate 200 mg 08/13/22 20:30 08/13/22 20:38 Benzonatate 100 Mg Capsule PO 08/13/22 20:31 200 mg ONCE ONE Administration Ibuprofen 400 mg 08/13/22 20:30 08/13/22 20:38 Ibuprofen 400 Mg Tablet PO 08/13/22 20:31 400 mg ONCE ONE Administration MDM - URI/Sore Throat Lab Data Labs: Lab Results 08/13/22 Range/Units 20:05 Influenza Type A (PCR) NEGATIVE (Negative) Influenza Type B (PCR) NEGATIVE (Negative) RSV RNA Qual (PCR) NEGATIVE (Negative) SARS-CoV-2 RNA (RT-PCR) NEGATIVE (Negative) Discharge Plan Discharge Clinical Impression: URI (upper respiratory infection), Tympanic membrane rupture Patient Disposition: Home, Self-Care Instructions: Ruptured Eardrum (ED), Upper Respiratory Infection (ED) Additional Instructions: 1. Reanudar todos los medicamentos caseros seg?n lo prescrito. [place] Tylenol/ibuprofen de venta sergio seg?n sea necesario para chase corporales, chase de bhavya. 2. Complete todo el curso de antibi?ticos para epperson o?do. 3. Recibi? dorinda receta para medicamentos para la tos. 4. Seguimiento con el proveedor de atenci?n primaria en los pr?ximos 1 a 2 d?as para la reevaluaci?n del manejo ambulatorio adicional. Regrese a la chintan de emergencias si los s?ntomas empeoran. Prescriptions: New ofloxacin 0.3 % drops 5 drp otic (ear) left BID 7 Days Qty: 10 0RF benzonatate 200 mg capsule 200 mg PO BID PRN (Reason: cough) Qty: 14 0RF No Action ferrous sulfate 325 mg (65 mg iron) tablet,delayed release (DR/EC) 325 mg PO DAILY 30 Days Qty: 30 1RF omeprazole 20 mg capsule,delayed release(DR/EC) 20 mg PO DAILY 90 Days Qty: 90 1RF ergocalciferol (vitamin D2) 50 mcg (2,000 unit) tablet 50 mcg PO DAILY 90 Days Qty: 90 1RF BuSpar 45 mg PO DAILY escitalopram oxalate [Lexapro] 10 mg tablet 10 mg PO DAILY medroxyprogesterone [Provera] 10 mg tablet 10 mg PO DAILY 30 Days Qty: 30 3RF Rx Instructions: start Provera 1 tablet daily from day 15-24 cyclically every months, day 1 being 1st day of menses Referrals: Pili Connell MD [Primary Care Provider] - Print Language: Andorran
[2022-08-13 21:04] VITALS: BP 131/84; PULSE 99; RESP 19; O2SAT 98
--- NOTE | 2022-08-13 21:21 | PC.NURSE ---
paper cup machine operator services utilized upon discharge. pt ambulatory at discharge. pt's significant other at bedside. discharge packet provided to pt at time of discharge. pt verbalized understanding of discharge plan
== END 2022-08-13 21:23 | disposition home or self-care (01) ==
PROVIDERS: Physician Assistant; Emergency Provider Student in an Organized Health Care Education/Training Program; PCP Internal Medicine
DX: J06.9 Acute upper respiratory infection, unspecified (principal); H72.92 Unspecified perforation of tympanic membrane, left ear; R06.02 Shortness of breath; M79.10 Myalgia, unspecified site; R05.9 Cough, unspecified; R51.9 Headache, unspecified; Z20.822 Contact with and (suspected) exposure to COVID-19; Z79.899 Other long term (current) drug therapy; Z87.891 Personal history of nicotine dependence
CPT/HCPCS: 0241U; 71046; 99283

== ENCOUNTER 2022-12-18 12:47 | Outpatient (REF) | payer OTHER, SELFPAY ==
[2022-12-18 15:09] LABS: Estimated Average Glucose 100 mg/dL; Hemoglobin A1c % 5.1 %
[2022-12-18 15:37] LABS: Folate 8.7 ng/mL (> or = 4.0); TSH reflex Free T4 2.55 uIU/mL (0.32-4.0); Vitamin B12 1223 pg/mL (200-900)
[2022-12-22 14:58] LABS: Transglutaminase Ab IgG <1.0 U/mL; Transglutaminase IgA <1.0 U/mL
[2022-12-23 16:15] LABS: Vitamin D 25-OH, D2 <4 ng/mL; Vitamin D 25-OH, D3 6 ng/mL; Vitamin D 25-OH, Total 6 ng/mL (30-100)
== END 2022-12-18 12:48 | disposition home or self-care (01) ==
LOC: HO.LAB 12:47
PROVIDERS: PCP Internal Medicine; Visit Provider Nurse Practitioner Family
DX: R19.7 Diarrhea, unspecified (principal); K59.00 Constipation, unspecified; E11.9 Type 2 diabetes mellitus without complications; E55.9 Vitamin D deficiency, unspecified; K21.9 Gastro-esophageal reflux disease without esophagitis; K58.2 Mixed irritable bowel syndrome; R10.13 Epigastric pain
CPT/HCPCS: 36415; 82306; 82607; 82746; 83036; 84443; 86364; 99202

== ENCOUNTER 2022-12-31 14:00 | Outpatient (RCR) | payer OTHER, SELFPAY ==
--- NOTE | 2022-10-28 12:36 | MHC.PT.EP ---
[facility] [place] [facility] [place] Office [place] Office [address] Elyssa Crisostomo [address] [phone] F: [phone] F: [phone] F: [phone] F: [phone] Physical Therapy Plan of Care Date of Evaluation: Date of Surgery: Diagnosis: L shoulder pain Assessment: Patient is a y.o. who is referred to PT by Dr. Pili Rudd with Dx of L shoulder pain. PT diagnosis is L shoulder subacromial impingement syndrome. Patient impairments include pain, limited ROM, and weakness. Patient current functional limitations are reaching behind her painful , unable to reach overhead, difficulty putting on shirts, cooking, and cleaning. Patient will benefit from skilled PT to address aforementioned impairments and functional limitations to meet established goals. Frequency and Duration: The patient will be seen 2x/week for 4 weeks Short Term Goals: 2 weeks Patient demonstrates consistency and independence with HEP to self manage symptoms. Patient presents with increased L shoulder ER 90 degrees to be able to reach behind her back for bathing. [employer] Goals: 4 weeks Patient presents with increased L shoulder flexion 170 degrees to reach overhead to cabinets. Patient presents with increased L shoulder flexion strength 4+/5 to be able to carry bag of groceries. Treatment Plan: Modalities to reduce pain, spasms and effusion. Manual therapy to restore motion and function. Therapeutic exercise to improve strength and flexibility. Neuromuscular re-education for posture and balance. Therapeutic activities to return to functional activities of daily living. Electronically signed by: Aruna Melo, PT, DPT Please sign and return to therapist. Thank you for your referral.
--- NOTE | 2023-01-06 11:23 | MHC.PT.DC ---
[facility] [place] Office [place] Office [place] Office [address] Elyssa Crisostomo [address] [phone] F: [phone] F: [phone] F: [phone] F: [phone] Physical Therapy Discharge Report Diagnosis: L shoulder pain Date of Surgery: Date of Evaluation: 10/27/22 Date of Discharge: 12/31/22 Treatments to Date: 9 Cancellations to Date: No Shows to Date: Discharge Status: Discharge Summary: Patient continues to present with high pain level, radicular sxs and limitations in both ROM and strength in L shoulder. Questionable RTC tear due to weakness and pain into abduction and ER. She does reports cervical traction reduces pain level but does not eliminate UE sxs. She may have overlyign adhesive capsulitis from limitations in ROM. I recommend further imaging, especially MRI, and referral to orthopedic. She is discharged from PT at this time for lack of progress. Electronically signed by: Aruna Melo, PT, DPT Please sign and return to therapist. Thank you for your referral.
== END 2023-01-06 12:46 | disposition home or self-care (01) ==
LOC: HO.PT 14:00
PROVIDERS: PCP Internal Medicine; Visit Provider Internal Medicine
DX: M25.512 Pain in left shoulder (principal)
CPT/HCPCS: 97012; 97110; 97140; 97161

== ENCOUNTER 2023-03-09 08:45 | Outpatient (REF) | payer OTHER, SELFPAY ==
--- NOTE | ~2023-03-09 | MR_ITS ---
EXAMINATION: MR SHOULDER WITHOUT CONTRAST, LEFT CLINICAL INFORMATION: Left shoulder pain and decreased range of motion. COMPARISON: Left shoulder radiographs dated 07/10/2022. TECHNIQUE: Multisequence MR imaging of the left shoulder was obtained without contrast on a high-field strength scanner. FINDINGS: ROTATOR CUFF: Increased T2 signal through the anterior aspect of the distal supraspinatus tendon, consistent with mild tendinosis. No measurable rotator cuff tendon tear. No muscle atrophy or fatty infiltration. BICEPS: Trace fluid within the proximal long head biceps tendon sheath which may represent normal variation versus minimal tenosynovitis. No transverse tendon tear or tendon retraction. CORACOACROMIAL ARCH: The undersurface of the acromion is curved with no subacromial spur. The acromioclavicular joint is normal. LABRUM/CAPSULE: No displaced labral tear. Minimal thickening and edema of the anteroinferior and anterosuperior joint capsule which could be seen in the setting of minimal adhesive capsulitis. GLENOHUMERAL JOINT/MARROW: Unremarkable. MR/MR shoulder LT wo con IMPRESSION: 1. Mild supraspinatus tendinosis without a measurable rotator cuff tendon tear. 2. Trace fluid within the proximal long head biceps tendon sheath which may represent normal variation versus minimal tenosynovitis. No transverse tendon tear or tendon retraction. 3. Minimal thickening and edema of the anteroinferior and anterosuperior joint capsule which could be seen in the setting of minimal adhesive capsulitis.
== END 2023-03-09 08:46 | disposition home or self-care (01) ==
LOC: HO.MRI 08:45
PROVIDERS: PCP Internal Medicine; Visit Provider Internal Medicine
DX: M25.512 Pain in left shoulder (principal)
CPT/HCPCS: 73221

== ENCOUNTER 2023-06-16 01:03 | Inpatient (IN) | payer OTHER, SELFPAY ==
[2023-06-16] VITALS (16 sets, daily range): BP systolic 101–167; BP diastolic 63–87; PULSE 74–97; RESP 16–18; TEMP 36.2–37.2; O2SAT 94–100; BMI 36.0; BMI 35.7
--- NOTE | ~2023-06-16 | CT_ITS ---
EXAMINATION: CT ABDOMEN AND PELVIS WITH CONTRAST CLINICAL INFORMATION: Abdominal pain, vomiting COMPARISON: None available. TECHNIQUE: Multidetector volumetric images were obtained from the superior aspect of the liver through the pubic symphysis following administration 85 mL of Omnipaque 350 intravenous contrast. Sagittal and coronal reformatted images were obtained on the technologist's workstation. Oral contrast: No This CT examination was performed using dose optimization techniques as appropriate, variously including the following: *Automated exposure control *Adjustment of mA and/or kV according to patient size (this includes techniques or standardized protocols for targeted exams where dose is matched to indication/reason for exam; i.e. extremities or head) *Use of iterative reconstruction technique DLP: 940 mGy-cm FINDINGS: LUNG BASES: The visualized lung bases are unremarkable. LIVER, GALLBLADDER, AND BILIARY TREE: The liver is normal in size, shape, and attenuation. Tiny hypodensity in the right lobe is too small to characterize, statistically likely a cyst. No biliary ductal dilatation is present. Patient is status post cholecystectomy. PANCREAS: Unremarkable. SPLEEN: Unremarkable. ADRENAL GLANDS: Unremarkable. KIDNEYS AND URETERS: Bilateral nephrograms are symmetric. No hydronephrosis or obstructing calculus identified. Subcentimeter hypodensity in the right kidney statistically favors a cyst; no follow-up recommended. BLADDER: Minimally distended and not well evaluated. GASTROINTESTINAL TRACT: There is moderate distention of the ascending colon, transverse colon, and proximal descending colon. There is relatively abrupt narrowing in the mid descending colon, with luminal collapse distal to this site. There is mild stranding in the left paracolic gutter at the location of narrowing. Appearance is concerning for colonic obstruction. Small bowel is nondilated. Appendix is suspected to be collapsed. No free fluid or free air is seen. ABDOMINAL WALL: No significant hernia is appreciated. LYMPH NODES: Normal. VASCULAR: Unremarkable. PELVIC VISCERA: Grossly unremarkable. OSSEOUS STRUCTURES: Unremarkable. CT/CT abdomen pelvis w IV con IMPRESSION: 1. Moderate distention of the ascending colon, transverse colon, and proximal descending colon. Relatively abrupt narrowing in the mid descending colon, with luminal collapse distal to this site. Appearance is suspicious for colonic obstruction. This could be due to benign or malignant in nature, and correlation with colonoscopy is recommended to assess for an underlying mass lesion. 2. Status post cholecystectomy.
[2023-06-16 01:38] LABS: MANUAL DIFF FLAG NO
[2023-06-16 01:40] LABS: Basophils Percent Auto 0.1 % (0-2); Eosinophils Absolute Auto 0.1 X10*3/uL (0.0-0.4); Eosinophils Percent Auto 1.7 % (0-4); Hematocrit 36.2 % (37.0-47.0); Imm Gran Abs Auto 0.01 X10*3/uL (0.00-0.03); Imm Gran Pct Auto 0.1 % (0.0-0.4); Lymphocytes Percent Auto 24.1 % (20-40); Mean Corpuscular HGB Conc 33.1 g/dl (31.0-35.0); Mean Corpuscular Hemoglobin 30.7 pg (27.0-33.0); Mean Corpuscular Volume 92.6 fL (80.0-98.0); Mean Platelet Volume 9.8 fL (9.4-12.3); Monocytes Absolute Auto 0.8 X10*3/uL (0.1-1.2); Monocytes Percent Auto 10.2 % (2-11); Neutrophils Absolute Auto 5.2 x10*3/uL (2.0-8.3); Neutrophils Percent Auto 63.8 % (45-73); Platelet Count 350 X10*3/uL (160-400); Red Blood Count 3.91 X10*6/uL (4.20-5.50); Red Cell Distribution Width 13.6 % (11.0-16.0); White Blood Count 8.2 X10*3/uL (4.8-10.8)
[2023-06-16] MEDS: 0.9 % Sodium Chloride 1,000 ML 999 ML IV ×2 (01:50→02:29)
[2023-06-16] MEDS: droPERidol 5 MG/2 ML VIAL 1.25 MG IVPUSH (01:50)
--- NOTE | 2023-06-16 01:57 | ED.ABDPAIN ---
HPI - Abdominal Pain General Chief Complaint: Abdominal Pain Stated Complaint: Vomiting/Abd pain Time Seen by Provider: 06/16/23 01:39 Source: patient, family, old records reviewed and transplant nurse Mode of arrival: ambulatory Limitations: no limitations History of Present Illness HPI narrative: 48 yo female with PMH of anemia, ovarian cysts, GERD, depression/anxiety prior and cholecystectomy who notes constipation x 3 days tonight she tried dulcolax 2 pills then at 10pm developed intense waves of lower abdominal cramps that were severe - no BM and no flatus along with nausea and multiple rounds of vomiting. She has not had an SBO before. MD elicited complaint: abdominal pain Pertinent past history: constipation Onset (ago): hour(s) (10pm) Pain Consistency: colicky Location: LUQ and RLQ Severity: severe Quality: cramping and stabbing Radiation: none Migration to: no migration Exacerbating factors: eating and movement Relieving factors: nothing Associated symptoms: nausea and vomiting Related Data Home Medications Medication Instructions Recorded Confirmed buspirone 15 mg tablet 15 mg PO TID 01/08/23 01/08/23 escitalopram oxalate 20 mg tablet 20 mg PO DAILY 01/08/23 01/08/23 zolpidem 10 mg tablet 10 mg PO BEDTIME PRN 01/08/23 01/08/23 Previous Rx's Medication Instructions Recorded medroxyprogesterone 10 mg tablet 10 mg PO DAILY 30 days #30 tabs 04/01/22 (Provera) ergocalciferol (vitamin D2) 50 mcg 50 mcg PO DAILY 90 days #90 tabs 07/10/22 (2,000 unit) tablet methylcellulose (laxative) 500 mg 500 mg PO DAILY #30 tabs 12/18/22 tablet (Citrucel) sennosides 8.6 mg tablet (Natural 17.2 mg (2 x 8.6 mg) PO BEDTIME 12/18/22 Senna Laxative) constipation #60 tabs omeprazole 20 mg capsule,delayed 20 mg PO DAILY 90 days #90 caps 12/19/22 release famotidine 20 mg tablet (Pepcid) 20 mg PO BEDTIME #90 tabs 02/11/23 ibuprofen 800 mg tablet 800 mg PO Q8H PRN pain 30 days #90 03/08/23 tabs Allergies Allergy/AdvReac Type Severity Reaction Status Date / Time No Known Allergies Allergy Verified 06/16/23 01:18 Review of Systems Review of Systems Constitutional : No Weight loss, No Fever, No Chills ENT/Mouth : No sore throat, No Rhinorrhea Eyes: No Swelling, No Redness Cardiovascular : No Chest Pain, No SOB, NoEdema Respiratory : No Cough, No Sputum, No Wheezing Gastrointestinal : Positive Nausea, Positive Vomiting, no Diarrhea, positive abdominal Pain, No Hematochezia, No Melena, pos constipation Genitourinary : No Dysuria, No Urinary Frequency, No Hematuria, No Urgency Musculoskeletal : No joint pain, No Myalgias, No Joint Swelling Skin : No Skin Lesions, No rash Neuro : No Weakness, No Numbness, No Dizziness, No Headache Psych : No Anxiety/Panic, No Depression Heme/Lymph: No Bruising, No Lymphadenopathy Endocrine : No Polyuria, No Polydipsia All other systems reviewed and are negative. [facility] Past Medical History Attestation statement: The following information was validated with the patient. Source: old records reviewed Medical History Hearing loss Lip lesion Physical exam Mild recurrent major depression Class 2 obesity with body mass index (BMI) of 37.0 to 37.9 in adult Aphthous ulcer Atypical mole Obese GERD (gastroesophageal reflux disease) Syncope Low back pain Vertigo Hypovitaminosis D B12 deficiency Insomnia Depression with anxiety Surgical History History of tooth extraction History of laparoscopic cholecystectomy History of section History of tubal ligation Family History Family History Father CHF (congestive heart failure) Myocardial infarction Diabetes Mother Diabetes Hypertension Family/Other FH: uterine cancer Leukemia Social History Social History Household Members: Children Housing: House Are you a primary rn acute care to a significant other at home: No Do you presently have visiting nurse or other home services: No Alcohol intake: current Alcohol intake frequency: a few times a month Alcohol type: beer and wine Patient Tobacco Use Status: Former Tobacco user Tobacco use type: Cigarette Cigarette Packs Per Day: 1 Years Smoked: 5 Smoked in Last 30 Days: No e-Cigarette/Vaping Use: Never Used Second Hand Smoke Exposure: No Use of substances other than those prescribed or required for medical reasons: No Advance Directives: No Advance Directives Information Provided: No service: No Current occupational status: unemployed Cognitive needs: No Hearing needs: No Vision needs: No Physical Exam ED Vital Signs: Vital Signs - 24 hr 06/16/23 01:11 06/16/23 02:14 06/16/23 03:27 Temperature 97.2 F 97.9 F 97.9 F Pulse Rate 97 78 94 Respiratory Rate 18 16 16 Blood Pressure 132/87 143/79 H 137/80 Pulse Oximetry 98 97 100 Oxygen Delivery Method Room Air Room Air Room Air 06/16/23 05:08 Temperature 98.1 F Pulse Rate 91 Respiratory Rate 16 Blood Pressure 124/77 Pulse Oximetry 98 Oxygen Delivery Method Room Air BMI result Body Mass Index 36.0 Appearance: Alert. Oriented X3. anxious in pain mild acute distress. Eyes: Pupils equal, round and reactive to light. ENT: Pharynx normal. Neck: Normal inspection. Neck supple. CVS: Normal heart rate and rhythm. Pulses normal. Respiratory: No respiratory distress. Breath sounds normal. Abdomen: Soft and ttp in lower abdomen moderate LLQ without rebound + guarding, distention noted lower abdomen Skin: Skin warm and dry. Normal skin color. Normal skin turgor. Extremities: No lower extremity edema. No calf ttp Neuro: Oriented X 3. No motor deficit. No sensory deficit. Course Course Course Narrative: pain improved with IV dilaudid Medical Decision Making Medical Decision Making MDM Narrative: 48 yo female with PMH of anemia, ovarian cysts, GERD, depression/anxiety prior and cholecystectomy here with intense abdominal pain and n/v after 3 days constipation and ingestion of 2 pills of dulcolax. at thist joselyn labs, lactic acid, CT scan for obstruction/renal colic - IV droperidol for vomiting and IV dilaudid for pain ordered. No prior hx of this. No known SBO in the past. Differential Diagnosis Differential Diagnoses: The differential diagnosis associated with the presentation includes renal colic, constipation, cyst, obstruction, volvulus, torsion Admission/Observation Consideration of admission/observation: Escalation of care including admission/observation considered admit for further management Consult Healthcare Provider Management of the patient was discussed with: Hospitalist (will admit) and Scientific Informatics Project Leader Dr. Ribeiro aware - consult GI will follow along Dr. Tobar notified Lab Data MDM Lab Attestation statement: I reviewed the patient's lab results. 06/16/23 01:35 06/16/23 01:35 Labs: Lab Results 06/16/23 06/16/23 06/16/23 Range/Units 01:35 02:12 03:59 WBC 8.2 (4.8-10.8) X10*3/uL RBC 3.91 L (4.20-5.50) X10*6/uL Hgb 12.0 (12.0-16.0) g/dl Hct 36.2 L (37.0-47.0) % MCV 92.6 (80.0-98.0) fL MCH 30.7 (27.0-33.0) pg MCHC 33.1 (31.0-35.0) g/dl RDW 13.6 (11.0-16.0) % Plt Count 350 (160-400) X10*3/uL MPV 9.8 (9.4-12.3) fL Immature Gran % (Auto) 0.1 (0.0-0.4) % Neut % (Auto) 63.8 (45-73) % Lymph % (Auto) 24.1 (20-40) % [place] % (Auto) 10.2 (2-11) % Eos % (Auto) 1.7 (0-4) % Baso % (Auto) 0.1 (0-2) % Lymph # (Auto) 2.0 (1.2-4.9) X10*3/uL [place] # (Auto) 0.8 (0.1-1.2) X10*3/uL Eos # (Auto) 0.1 (0.0-0.4) X10*3/uL Baso # (Auto) 0.0 (0.0-0.2) X10*3/uL Abs Immat Gran (auto) 0.01 (0.00-0.03) X10*3/uL Absolute Neuts (auto) 5.2 (2.0-8.3) x10*3/uL Absolute Nucleated RBC 0.000 (0.0-0.012) X10*3/uL Nucleated RBC % (auto) 0.0 (0.0-0.2) /100WBC Sodium 138 (135-145) mmol/L Potassium 3.5 (3.3-5.1) mmol/L Chloride 109 H (96-108) mmol/L Carbon Dioxide 18 L (22-29) mmol/L Anion Gap 15 (12-20) BUN 11 (9-16) mg/dL Creatinine 0.76 (0.5-1.4) mg/dL Estim Creat Clear Calc 112.5 Estimated GFR > 60 Random Glucose 148 H (60-115) mg/dL Lactic Acid 1.9 (0.5-2.0) mmol/L Calcium 8.9 D (8.4-10.2) mg/dL Total Bilirubin 0.4 (0.0-1.0) mg/dL Direct Bilirubin 0.2 (0.0-0.5) mg/dL AST 17 (5-31) U/L ALT 13 (0-31) U/L Alkaline Phosphatase 73 (39-117) U/L Total Protein 7.8 (6.5-8.0) g/dL Albumin 3.8 (3.5-5.0) g/dL Lipase 15 (8-78) U/L Urine Color Yellow Urine Appearance Clear Urine pH 6.0 (5.0-9.0) Ur Specific [place] >= 1.030 H (1.005-1.025) Urine Protein Negative (Neg-Trace) mg/dL Urine Glucose (UA) Negative (Negative) mg/dL Urine Ketones 15 (Negative) mg/dL Urine Blood Negative (Negative) Urine Nitrite Negative (Negative) Ur Leukocyte Esterase Trace H (Negative) Urine RBC 0-2 (0-2) /HPF Urine WBC 11-20 H (0-5) /HPF Ur Squamous Epith Cells 0-2 (0-2) /HPF Urine Bacteria 4+ (None Seen) Hyaline Casts 0-2 (0-2) /LPF Urine Opiates Screen Not Detected (Not Detect) Urine Fentanyl Screen Not Detected (Not Detect) Ur Barbiturates Screen Not Detected (Not Detect) Ur Phencyclidine Scrn Not Detected (Not Detect) Ur Amphetamines Screen Not Detected (Not Detect) U Benzodiazepines Scrn Not Detected (Not Detect) Urine Cocaine Screen Not Detected (Not Detect) U Marijuana (THC) Screen Not Detected (Not Detect) Independent Interpretation I performed an independent interpretation of an: CT Scan (obstruction) Radiology Impression Discussion of test interpretation with radiology: I have reviewed the radiologist's reading. Independent Historian Clinical information obtained from an independent historian. History obtained from or confirmed by: Spouse External Record Review External record reviewed: Inpatient record Medications Administered Generic Name Dose Route Start Last Admin Trade Name Freq PRN Reason Stop Dose Admin Sodium Chloride 1,000 mls @ 100 mls/hr 06/16/23 04:15 06/16/23 05:13 Ns IVCONT 100 mls/hr .Q10H DOMINIC Administration Sodium Chloride 3 ml 06/16/23 08:00 06/16/23 06:59 0.9 % Sodium Chloride Flush 3 Ml Syringe IVFLUSH Not Given QSHIFT DOMINIC Discontinued Medications Generic Name Dose Route Start Last Admin Trade Name Freq PRN Reason Stop Dose Admin Droperidol 1.25 mg 06/16/23 01:42 06/16/23 01:50 Droperidol 5 Mg/2 Ml Vial IVPUSH 06/16/23 01:43 1.25 mg ONCE ONE Administration Hydromorphone HCl 0.5 mg 06/16/23 02:17 06/16/23 02:27 Hydromorphone Hcl 0.5 Mg/0.5 Ml Syringe IVPUSH 06/16/23 02:18 0.5 mg ONCE ONE Administration Protocol Sodium Chloride 1,000 mls @ 999 mls/hr 06/16/23 01:45 06/16/23 05:21 Ns IV 06/16/23 02:45 Infused .Q1H1M DOMINIC Infusion Sodium Chloride 1,000 mls @ 999 mls/hr 06/16/23 02:15 06/16/23 05:21 Ns IV 06/16/23 03:15 Infused .Q1H1M DOMINIC Infusion Iohexol 85 ml 06/16/23 02:25 06/16/23 02:26 Iohexol 350 Mg/Ml 100 Ml Infus..Btl IV 06/16/23 02:26 85 ml ONCE ONE Administration Critical Care Time Critical Care Time Critical Care Time: Yes Total Critical Care Time: 35 Attestation: IVF pain improved with IV dilaudid, consults, admission I attest to this time spent taking care of the patient Discharge Plan Discharge Clinical Impression: Colonic obstruction Abdominal pain Qualifiers: Abdominal location: lower abdomen, unspecified Qualified Code(s): R10.30 - Lower abdominal pain, unspecified Vomiting Qualifiers: Vomiting type: unspecified Nausea presence: with nausea Qualified Code(s): R11.2 - Nausea with vomiting, unspecified Patient Disposition: Admitted As Inpatient
[2023-06-16 01:59] LABS: Alanine Aminotransferase 13 U/L (0-31); Albumin Level 3.8 g/dL (3.5-5.0); Alkaline Phosphatase 73 U/L (39-117); Anion Gap 15 (12-20); Aspartate Amino Transferase 17 U/L (5-31); Bilirubin Direct 0.2 mg/dL (0.0-0.5); Bilirubin Total 0.4 mg/dL (0.0-1.0); Blood Urea Nitrogen 11 mg/dL (9-16); Calcium 8.9 mg/dL (8.4-10.2); Carbon Dioxide 18 mmol/L (22-29); Chloride 109 mmol/L (96-108); Creatinine Clr Calc Pharmacy 112.5; Estimated Glomerular Filt Rate > 60; Glucose Random 148 mg/dL (60-115); Lipase 15 U/L (8-78); Potassium 3.5 mmol/L (3.3-5.1); Sodium 138 mmol/L (135-145); Total Protein 7.8 g/dL (6.5-8.0)
--- NOTE | 2023-06-16 02:18 | MHC.EDTECH ---
this pct just assumed care of pt ,vitals sign taken and lactic acid drawn and sent to lab .
[2023-06-16] MEDS: iohexoL 350 MG/ML 100 ML INFUS..BTL 85 ML IV (02:26)
[2023-06-16 02:27] LABS: Lactic Acid 1.9 mmol/L (0.5-2.0)
[2023-06-16] MEDS: HYDROmorphone HCl 0.5 MG/0.5 ML SYRINGE IVPUSH (02:27)
[2023-06-16 04:07] LABS: Appearance Urine Clear; Color Urine Yellow; Glucose Urine UA Negative (Negative); Leukocyte Esterase Urine Trace (Negative); Nitrite Urine Negative (Negative); Specific Gravity - Urine >= 1.030 (1.005-1.025); UMIC TRIGGER UACC YES; Urine Blood Negative (Negative); Urine Ketones 15 mg/dL (Negative); Urine Protein Negative (Neg-Trace)
[2023-06-16 04:17] LABS: Amphetamine Screen Urine Not Detected (Not Detect); Barbiturates, Urine Not Detected (Not Detect); Benzodiazepines Screen Urine Not Detected (Not Detect); Cannabinoid Screen Urine Not Detected (Not Detect); Cocaine Screen Urine Not Detected (Not Detect); Fentanyl, urine Not Detected (Not Detect); Opiate Screen Urine Not Detected (Not Detect); Phencyclidine Screen Urine Not Detected (Not Detect)
[2023-06-16 05:07] LABS: Bacteria Urine 4+ (None Seen); Hyaline Casts Urine 0-2 /LPF (0-2); RBC Urine 0-2 /HPF (0-2); Squamous Epithelial Cell Urine 0-2 /HPF (0-2); UACC Culture Trigger YES
[2023-06-16] MEDS: 0.9 % Sodium Chloride 1,000 ML 100 ML IVCONT ×2 (05:13→18:02)
--- NOTE | 2023-06-16 05:46 | P.HPHOSP_ITS ---
History of Present Illness Date of Service: 06/16/23 Chief Complaint: abdominalPain Australian-speaking only, history is obtained with the help of an electronics maintenance technician this is a 48-year-old female past medical history of depression, anxiety, GERD, history of low back pain, vertigo, comes into the hospital with complaints of abdominal pain. pain is described as 10/10, localized to the lower abdomen, nonradiating, associated with nausea vomiting. Patient reports that she has constipation for 2 days, she took 2 pills of Colace and immediately after started developing significant pain. Reports no history of constipation or similar episode in the past. No fever chills, no chest pain, no urinary symptoms and no lower extremity edema On arrival to the ED patient hemodynamically stable no significant abnormal vitals Labs are significant for WBC count of 8.2, hemoglobin of 12.0, labs otherwise unremarkable UA shows leukocyte Estrace trace and some WBC but patient has no symptoms Normal lactic acid Abdominal pelvic CT shows distension of the ascending transverse and proximal descending colon relatively abrupt narrowing in the mid descending colon with luminal collapse distal to the site, this is suspicious for colonic obstruction malignant cannot be ruled out. Gastroenterology consulted, patient will undergo evaluation in a.m.. Review of Systems 2 Review of Systems: Yes all other systems are reviewed and are negative [facility] Medical History Hearing loss Lip lesion Physical exam Mild recurrent major depression Class 2 obesity with body mass index (BMI) of 37.0 to 37.9 in adult Aphthous ulcer Atypical mole Obese GERD (gastroesophageal reflux disease) Syncope Low back pain Vertigo Hypovitaminosis D B12 deficiency Insomnia Depression with anxiety Family History Father CHF (congestive heart failure) Myocardial infarction Diabetes Mother Diabetes Hypertension Family/Other FH: uterine cancer Leukemia Surgical History History of tooth extraction History of laparoscopic cholecystectomy History of section History of tubal ligation Social History Household Members: Children Housing: House Are you a primary critical care paramedic to a significant other at home: No Do you presently have visiting nurse or other home services: No Alcohol intake: current Alcohol intake frequency: a few times a month Alcohol type: beer and wine Patient Tobacco Use Status: Former Tobacco user Tobacco use type: Cigarette Cigarette Packs Per Day: 1 Years Smoked: 5 Smoked in Last 30 Days: No e-Cigarette/Vaping Use: Never Used Second Hand Smoke Exposure: No Use of substances other than those prescribed or required for medical reasons: No Advance Directives: No Advance Directives Information Provided: No service: No Current occupational status: unemployed Cognitive needs: No Hearing needs: No Vision needs: No Meds Allergies Allergy/AdvReac Type Severity Reaction Status Date / Time No Known Allergies Allergy Verified 06/16/23 01:18 Active Medications: Current Medications Sodium Chloride (Ns) 1,000 mls @ 100 mls/hr IVCONT .Q10H DOMINIC Last Admin: 06/16/23 05:13 Dose: 100 mls/hr Home Medications Medication Instructions Recorded Confirmed Last Taken Type buspirone 15 mg tablet 15 mg PO TID 01/08/23 01/08/23 Unknown History escitalopram oxalate 20 mg tablet 20 mg PO DAILY 01/08/23 01/08/23 Unknown History zolpidem 10 mg tablet 10 mg PO BEDTIME PRN 01/08/23 01/08/23 Unknown History Physical Exam 2 Vital Signs and Narrative: Vital Signs: Last Vital Signs Temp 98.1 F 06/16/23 05:08 Pulse 91 06/16/23 05:08 Resp 16 06/16/23 05:08 BP 124/77 06/16/23 05:08 Pulse Ox 98 06/16/23 05:08 O2 Del Method Room Air 06/16/23 05:08 BMI result Body Mass Index 36.0 Const: General: cooperative and no acute distress O rientation/consciousness: patient oriented x3 Eyes: General: appearance normal, both eyes and all related structures Resp: Effort & Inspection: normal respiratory effort Auscultation: clear to auscultation bilaterally Cardio: Rate: regular rate Rhythm: regular rhythm GI: Other: abdomen is distended, tender to palpation, has rebound and guarding Palpation (GI): Soft to palpation Auscultation: normal bowel sounds Skin: General skin exam: no rashes or lesions noted Neuro: General: patient oriented x3 Cognition (Neuro): normal cognition Extrem: General: Yes normal to inspection and Yes no pedal edema Results Labs 06/16/23 01:35 06/16/23 01:35 Labs: Laboratory Results - last 24 hr 06/16/23 06/16/23 06/16/23 01:35 02:12 03:59 MCV 92.6 MCH 30.7 MCHC 33.1 RDW 13.6 Plt Count 350 MPV 9.8 Immature Gran % (Auto) 0.1 Neut % (Auto) 63.8 Lymph % (Auto) 24.1 [place] % (Auto) 10.2 Eos % (Auto) 1.7 Baso % (Auto) 0.1 Lymph # (Auto) 2.0 [place] # (Auto) 0.8 Eos # (Auto) 0.1 Baso # (Auto) 0.0 Abs Immat Gran (auto) 0.01 Absolute Neuts (auto) 5.2 Absolute Nucleated RBC 0.000 Nucleated RBC % (auto) 0.0 Anion Gap 15 Estim Creat Clear Calc 112.5 Estimated GFR > 60 Random Glucose 148 H Lactic Acid 1.9 Calcium 8.9 D Total Bilirubin 0.4 Direct Bilirubin 0.2 AST 17 ALT 13 Alkaline Phosphatase 73 Total Protein 7.8 Albumin 3.8 Lipase 15 Urine Color Yellow Urine Appearance Clear Urine pH 6.0 Ur Specific [place] >= 1.030 H Urine Protein Negative Urine Glucose (UA) Negative Urine Ketones 15 Urine Blood Negative Urine Nitrite Negative Ur Leukocyte Esterase Trace H Urine RBC 0-2 Urine WBC 11-20 H Ur Squamous Epith Cells 0-2 Urine Bacteria 4+ Hyaline Casts 0-2 Urine Opiates Screen Not Detected Urine Fentanyl Screen Not Detected Ur Barbiturates Screen Not Detected Ur Phencyclidine Scrn Not Detected Ur Amphetamines Screen Not Detected U Benzodiazepines Scrn Not Detected Urine Cocaine Screen Not Detected U Marijuana (THC) Screen Not Detected Imaging Radiologist's Impressions: Impressions Abdomen/Pelvis CT 06/16/23 02:20 IMPRESSION: 1. Moderate distention of the ascending colon, transverse colon, and proximal descending colon. Relatively abrupt narrowing in the mid descending colon, with luminal collapse distal to this site. Appearance is suspicious for colonic obstruction. This could be due to benign or malignant in nature, and correlation with colonoscopy is recommended to assess for an underlying mass lesion. 2. Status post cholecystectomy. Assessment and Plan (1) Colonic obstruction: Status: Acute Plan this is a 48-year-old female past medical history of depression anxiety, GERD, reports a history of , into the hospital with abdominal pain found to have colonic obstruction # acute colonic obstruction - malignancy cannot be ruled out - CT imaging as above - anti nausea medication, pain control - keep patient NPO - patient to be evaluated by GI in a.m. for possible colonoscopy - lactic acid normal # Asymptomatic polyuria - monitor symptoms # depression anxiety - continue mood stabilizers once patient able to take p.o. # GERD - continue PPI DVT prophylaxis: Lovenox given patient's need for further intervention of colonic obstruction patient will require minimal 2 night inpatient hospital stay for further management and monitoring Time Spent With Patient Time: Total time managing care of this patient today ____ minutes. Quality Stroke Does the patient have a stroke diagnosis?: No VTE Prior VTE?: No VTE Risk Level:: Medical - moderate - high VTE Device Contraindication: Treatment Not Indicated VTE Drug Contraindication: N/A - Med Ordered
--- NOTE | 2023-06-16 08:43 | P.EN_ITS ---
Event Note Date of Service: 06/16/23 Event Note: GI Consult-Full note dictated-History from patient and via neuropsychology medical consultant, and from EMR Imp: 48yo healthy female with 3 days of new onset left-sided abdominal discomfort with associated constipation, nausea, and vomiting. Prior to this she did not have any GI sx. She has never had a colonoscopy. Her CT is c/w with an obstruction in the descending colon. There is no definitive evidence of a mass and no description of diverticulitis. Her abdominal is distended with decreased BS and some left sided tenderness, but it is soft and without a palpable mass. Diff dx: Colonic obstruction due to mass; doubt diverticulitis, stricture, or adhesions. Rec: Limited colonoscopy today with me or Dr. Monten[place]. Full consent obtained for this, including risks of bleeding and perforation. Will give a limited cleanout with some enemas. Surgical consult. D/W patient and in detail. They are comfortable with this plan. Thanks Time Spent With Patient Time: Total time managing care of this patient today ____ minutes.
--- NOTE | 2023-06-16 08:43 | MHC.SHP ---
Pre-Procedural Eval Section A Date of Service: 06/16/23 The patient is an INPATIENT: Yes The History & Physical has been completed within 30 days and I have reviewed it.: Yes Section B Chief Complaint: Colonic obstruction Allergies: Allergies Allergy/AdvReac Type Severity Reaction Status Date / Time No Known Allergies Allergy Verified 06/16/23 01:18 Plan I have reviewed the history and physical and performed a pertinent physical examination on my patient. No changes have occurred unless specified. Time Spent With Patient Time: Total time managing care of this patient today ____ minutes.
--- NOTE | 2023-06-16 09:09 | MHC.CM.PN ---
CM MET WITH PT AND S/O WITH ENGRAVER SIGNATURE PT LIVES WITH HER S/O AND DAUGHTER SHE IS INDEPENDENT WITH CARE SHE HAS NO SERVICES AND NO DME SHE COMPLETED A HCP TODAY NAMING HER S/O SUSY [phone] HER AGENT PCP: DEREJE GARCIA DCP: HOME NO SERVICES VIA PRIVATE TRANSPORT
--- NOTE | 2023-06-16 09:37 | PM.CNGS ---
History of Present Illness Consult details Consult date: 06/16/23 Narrative: Patient is a 48-year-old female who presents for evaluation of 3 days of obstipation. She has had associated nausea vomiting. She has tried stool softeners and variety of other purgatives with no success. Because of progression of symptoms which included lower abdominal pain, she presented the emergency department for further evaluation. Patient has had prior cholecystectomy and section. She has never had history of SBO . Has never had colonoscopy before. Chart was reviewed patient evaluated. [facility] Past Medical History Medical History Hearing loss Lip lesion Physical exam Mild recurrent major depression Class 2 obesity with body mass index (BMI) of 37.0 to 37.9 in adult Aphthous ulcer Atypical mole Obese GERD (gastroesophageal reflux disease) Syncope Low back pain Vertigo Hypovitaminosis D B12 deficiency Insomnia Depression with anxiety Family History Family History Father CHF (congestive heart failure) Myocardial infarction Diabetes Mother Diabetes Hypertension Family/Other FH: uterine cancer Leukemia Surgical History Surgical History History of tooth extraction History of laparoscopic cholecystectomy History of section History of tubal ligation Social History Social History Household Members: Children Housing: House Are you a primary critical care educator to a significant other at home: No Do you presently have visiting nurse or other home services: No Alcohol intake: current Alcohol intake frequency: a few times a month Alcohol type: beer and wine Patient Tobacco Use Status: Former Tobacco user Tobacco use type: Cigarette Cigarette Packs Per Day: 1 Years Smoked: 5 Smoked in Last 30 Days: No e-Cigarette/Vaping Use: Never Used Second Hand Smoke Exposure: No Use of substances other than those prescribed or required for medical reasons: No Advance Directives: Yes Advance Directives on File: Yes Advance Directives Date on File: 06/16/23 service: No Current occupational status: unemployed Cognitive needs: No Hearing needs: No Vision needs: No Meds Allergies Allergy/AdvReac Type Severity Reaction Status Date / Time No Known Allergies Allergy Verified 06/16/23 01:18 Active Medications: Current Medications Acetaminophen (Acetaminophen Supp 650 Mg Supp.Rect) 650 mg MO Q6H PRN PRN Reason: Pain, Mild (Pain Scale 1-3) Sodium Chloride (Ns) 1,000 mls @ 100 mls/hr IVCONT .Q10H [facility] Last Admin: 06/16/23 05:13 Dose: 100 mls/hr Morphine Sulfate (Morphine Sulfate 4 Mg/Ml Cartridge) 4 mg IVPUSH Q4H PRN; Protocol PRN Reason: Pain, Severe (Pain Scale 7-10) Ondansetron HCl (Ondansetron Hcl 4 Mg/2 Ml Vial) 4 mg IVPUSH Q8H PRN PRN Reason: Nausea and Vomiting Sodium Biphosphate/Sodium Phosphate (Sodium Phosphate,[place]-Dibasic 133 Ml Enema) 133 ml MO ONCE [place] Sodium Chloride (0.9 % Sodium Chloride Flush 3 Ml Syringe) 3 ml IVFLUSH QSHIFT [facility] Last Admin: 06/16/23 06:59 Dose: Not Given Home Medications Medication Instructions Recorded Confirmed Last Taken Type buspirone 15 mg tablet 15 mg PO TID 01/08/23 01/08/23 Unknown History escitalopram oxalate 20 mg tablet 20 mg PO DAILY 01/08/23 01/08/23 Unknown History zolpidem 10 mg tablet 10 mg PO BEDTIME PRN 01/08/23 01/08/23 Unknown History Physical Exam Vital Signs: Vital Signs: Last Vital Signs Temp 98.2 F 06/16/23 09:28 Pulse 79 06/16/23 09:28 Resp 16 06/16/23 09:28 BP 134/79 06/16/23 09:28 Pulse Ox 98 06/16/23 09:28 O2 Del Method Room Air 06/16/23 09:28 BMI result Body Mass Index 36.0 Chest: Other: Chest breath sounds bilaterally, HS 1 in 2 GI: Other: Abdomen corpulent, soft, mild periumbilical tenderness. No evidence of any guarding, rebound, or rigidity. No obvious hernias. Results Labs 06/16/23 01:35 06/16/23 01:35 Labs: Abnormal lab results 06/16/23 06/16/23 Range/Units 01:35 03:59 RBC 3.91 L (4.20-5.50) X10*6/uL Hct 36.2 L (37.0-47.0) % Chloride 109 H (96-108) mmol/L Carbon Dioxide 18 L (22-29) mmol/L Random Glucose 148 H (60-115) mg/dL Ur Specific [place] >= 1.030 H (1.005-1.025) Ur Leukocyte Esterase Trace H (Negative) Urine WBC 11-20 H (0-5) /HPF Short CBC 06/16/23 Range/Units 01:35 WBC 8.2 (4.8-10.8) X10*3/uL Hgb 12.0 (12.0-16.0) g/dl Hct 36.2 L (37.0-47.0) % Plt Count 350 (160-400) X10*3/uL BMP 06/16/23 01:35 Sodium 138 Potassium 3.5 Chloride 109 H Carbon Dioxide 18 L BUN 11 Creatinine 0.76 Calcium 8.9 D Liver Function 06/16/23 Range/Units 01:35 Total Bilirubin 0.4 (0.0-1.0) mg/dL Direct Bilirubin 0.2 (0.0-0.5) mg/dL AST 17 (5-31) U/L ALT 13 (0-31) U/L Alkaline Phosphatase 73 (39-117) U/L Albumin 3.8 (3.5-5.0) g/dL Urine 06/16/23 Range/Units 03:59 Urine Color Yellow Urine Appearance Clear Urine pH 6.0 (5.0-9.0) Ur Specific [place] >= 1.030 H (1.005-1.025) Urine Protein Negative (Neg-Trace) mg/dL Urine Glucose (UA) Negative (Negative) mg/dL All other labs normal. Assessment and Plan (1) Colonic obstruction: Status: Acute (2) Abdominal pain: Qualifiers: Abdominal location: lower abdomen, unspecified Qualified Code(s): R10.30 - Lower abdominal pain, unspecified Status: Acute (3) Vomiting: Qualifiers: Nausea presence: with nausea Vomiting type: unspecified Qualified Code(s): R11.2 - Nausea with vomiting, unspecified Status: Acute Plan Patient is tentatively scheduled for colonoscopy for today. Further interventions and studies will be directed by the patient's clinical course, and the results of the above-mentioned procedure. Time Spent With Patient Time: Total time managing care of this patient today ____ minutes. Procedures Date of Service Date of Service: 06/16/23
--- NOTE | 2023-06-16 09:46 | PHA.MEDREC ---
Pharmacy Consult ? Medication Reconciliation Pharmacy has completed the medication reconciliation. Spoke to patient and verified medications.
[2023-06-16 10:03] LABS: Basophils Percent Auto 0.1 % (0-2); Hemoglobin 10.9 g/dl (12.0-16.0); Imm Gran Abs Auto 0.06 X10*3/uL (0.00-0.03); Imm Gran Pct Auto 0.4 % (0.0-0.4); Lymphocytes Absolute Auto 0.7 X10*3/uL (1.2-4.9); Lymphocytes Percent Auto 5.1 % (20-40); MANUAL DIFF FLAG SCAN; Mean Corpuscular HGB Conc 32.1 g/dl (31.0-35.0); Mean Corpuscular Hemoglobin 30.7 pg (27.0-33.0); Mean Corpuscular Volume 95.8 fL (80.0-98.0); Mean Platelet Volume 10.5 fL (9.4-12.3); Monocytes Absolute Auto 0.6 X10*3/uL (0.1-1.2); Monocytes Percent Auto 4.3 % (2-11); Neutrophils Absolute Auto 13.1 x10*3/uL (2.0-8.3); Neutrophils Percent Auto 90.1 % (45-73); Platelet Count 306 X10*3/uL (160-400); Red Blood Count 3.55 X10*6/uL (4.20-5.50); Red Cell Distribution Width 13.6 % (11.0-16.0); SCAN SMEAR FLAG 1; White Blood Count 14.5 X10*3/uL (4.8-10.8)
[2023-06-16 10:22] LABS: Anion Gap 14 (12-20); Blood Urea Nitrogen 8 mg/dL (9-16); Carbon Dioxide 20 mmol/L (22-29); Chloride 109 mmol/L (96-108); Creatinine Clr Calc Pharmacy 113.9; Estimated Glomerular Filt Rate > 60; Glucose Random 135 mg/dL (60-115); Potassium 3.6 mmol/L (3.3-5.1); Sodium 139 mmol/L (135-145)
[2023-06-16] MEDS: Morphine Sulfate 4 MG/ML CARTRIDGE IVPUSH ×2 (11:16→18:02)
[2023-06-16 11:18] LABS: SLIDE REVIEW VERIFIED
[2023-06-16] MEDS: ondansetron HCL 4 MG/2 ML VIAL IVPUSH ×2 (11:22→21:55)
[2023-06-16] MEDS: Sodium Phosphate,Mono-Dibasic 133 ML ENEMA PR (11:26)
--- NOTE | 2023-06-16 11:34 | PC.NURSE ---
pt reporting 9/10 abdominal pain. lead architect in room to help with communication with pt. pt medicated with morphine per nov. pt became nauseous and vomited small amount of brown emesis from pain med. immediately stopped IV push and given zofran per nov. pt stated immediate pain relief rating 3/10 and nausea subsided. pt resting quietly on stretcher in no apparent distress. call rose within pt reach.
--- NOTE | 2023-06-16 11:48 | PC.NURSE ---
pt given fleet enema, per nov. pt tolerated well and voided via bedside commode within 5 minutes. small amount of brown stool noted. pt sts feeling some relief. pt given warm wipes and able to clean up independently. pt back to bed. visitor at bedside. awaiting transport to OR for colonoscopy. report given to ADILIA Frye already. rr even/unlabored. call rose within pt reach. all pt needs met fidelia. plan of care ongoing.
--- NOTE | 2023-06-16 12:43 | PC.NURSE ---
Patient arrived from ER with 20 gauge IV to left AC. Flushes easy/patent.
--- NOTE | 2023-06-16 13:22 | PM.EVENT ---
Event Note Date of Service: 06/16/23 Event Note: I personally saw and examined the patient; A/P as outlined in H and P from today, to have colonoscopy today Time Spent With Patient Time: Total time managing care of this patient today ____ minutes.
--- NOTE | 2023-06-16 15:01 | P.CONAN_ITS ---
HPI - Anesthesia Eval Consult details Narrative: 48 F for colonoscopy PMH of depression anxiety, GERD Case discussed with . Malignancy is a possibility . Plan is to do colonoscopy , received enema PMFSH Active Problems Active Problems: All Active Problems (Updated 06/16/23 @ 03:44 by Rylie Corado DO) Colonic obstruction (Acute) Vomiting (Acute) Abdominal pain (Acute) Adhesive capsulitis of left shoulder (Acute) Left shoulder pain (Acute) Screen for colon cancer (Acute) Physical exam (Acute) Iron deficiency anemia due to chronic blood loss (Acute) Leucopenia (Chronic) Well woman exam (Acute) Menometrorrhagia (Acute) Myoma (Acute) Complex ovarian cyst (Acute) Anemia (Acute) Hearing loss (Acute) Lip lesion (Acute) Physical exam (Acute) Mild recurrent major depression (Acute) Class 2 obesity with body mass index (BMI) of 37.0 to 37.9 in adult (Acute) Aphthous ulcer (Acute) Atypical mole (Acute) Obese (Acute) GERD (gastroesophageal reflux disease) (Acute) Syncope (Acute) Low back pain (Acute) Vertigo (Acute) Hypovitaminosis D (Acute) B12 deficiency (Acute) Insomnia (Acute) Depression with anxiety (Acute) Past Medical History Medical History Hearing loss Lip lesion Physical exam Mild recurrent major depression Class 2 obesity with body mass index (BMI) of 37.0 to 37.9 in adult Aphthous ulcer Atypical mole Obese GERD (gastroesophageal reflux disease) Syncope Low back pain Vertigo Hypovitaminosis D B12 deficiency Insomnia Depression with anxiety Functional capacity: independent ambulation Family History Family History Father CHF (congestive heart failure) Myocardial infarction Diabetes Mother Diabetes Hypertension Family/Other FH: uterine cancer Leukemia Family history of problems with anesthesia: No Surgical History Surgical History History of tooth extraction History of laparoscopic cholecystectomy History of section History of tubal ligation History of Problems with Anesthesia: No Social History Social History Household Members: Children Housing: House Are you a primary career development associate to a significant other at home: No Do you presently have visiting nurse or other home services: No Alcohol intake: current Alcohol intake frequency: a few times a month Alcohol type: beer and wine Patient Tobacco Use Status: Former Tobacco user Tobacco use type: Cigarette Cigarette Packs Per Day: 1 Years Smoked: 5 e-Cigarette/Vaping Use: Never Used Second Hand Smoke Exposure: No Advance Directives Date on File: 06/16/23 service: No Current occupational status: unemployed Cognitive needs: No Hearing needs: No Vision needs: No Meds Allergies Allergy/AdvReac Type Severity Reaction Status Date / Time No Known Allergies Allergy Verified 06/16/23 12:11 Active Medications: Current Medications Acetaminophen (Acetaminophen Supp 650 Mg Supp.Rect) 650 mg [place] Q6H PRN PRN Reason: Pain, Mild (Pain Scale 1-3) Sodium Chloride (Ns) 1,000 mls @ 100 mls/hr IVCONT .Q10H [facility] Last Admin: 06/16/23 05:13 Dose: 100 mls/hr Morphine Sulfate (Morphine Sulfate 4 Mg/Ml Cartridge) 4 mg IVPUSH Q4H PRN; Protocol PRN Reason: Pain, Severe (Pain Scale 7-10) Last Admin: 06/16/23 11:16 Dose: 4 mg Ondansetron HCl (Ondansetron Hcl 4 Mg/2 Ml Vial) 4 mg IVPUSH Q8H PRN PRN Reason: Nausea and Vomiting Last Admin: 06/16/23 11:22 Dose: 4 mg Sodium Biphosphate/Sodium Phosphate (Sodium Phosphate,[place]-Dibasic 133 Ml Enema) 133 ml [place] ONCE [facility] Last Admin: 06/16/23 11:26 Dose: 133 ml Sodium Chloride (0.9 % Sodium Chloride Flush 3 Ml Syringe) 3 ml IVFLUSH QSHIFT [facility] Last Admin: 06/16/23 06:59 Dose: Not Given Home Medications Medication Instructions Recorded Confirmed Last Taken Type buspirone 15 mg tablet 15 mg PO TID 01/08/23 06/16/23 06/15/23 History escitalopram oxalate 20 mg tablet 20 mg PO DAILY 01/08/23 06/16/23 06/15/23 History zolpidem 10 mg tablet 10 mg PO BEDTIME PRN Insomnia 01/08/23 06/16/23 Unknown History Exam Exam Date and Time: June 16, 2023 1501 Height,Weight and Vital Signs: Height 5 ft 7 in Weight 104.326 kg Last Vital Signs Temp 97.6 F 06/16/23 12:42 Pulse 95 06/16/23 12:42 Resp 18 06/16/23 12:42 BP 136/86 06/16/23 12:42 Pulse Ox 98 06/16/23 12:42 O2 Del Method Room Air 06/16/23 12:42 Pertinent Lab Results Pertinent Lab Results: Laboratory Tests 06/16/23 06/16/23 06/16/23 01:35 02:12 03:59 WBC 8.2 RBC 3.91 L Hgb 12.0 Hct 36.2 L MCV 92.6 MCH 30.7 MCHC 33.1 RDW 13.6 Plt Count 350 MPV 9.8 Immature Gran % (Auto) 0.1 Neut % (Auto) 63.8 Lymph % (Auto) 24.1 Page % (Auto) 10.2 Eos % (Auto) 1.7 Baso % (Auto) 0.1 Lymph # (Auto) 2.0 Page # (Auto) 0.8 Eos # (Auto) 0.1 Baso # (Auto) 0.0 Abs Immat Gran (auto) 0.01 Absolute Neuts (auto) 5.2 Absolute Nucleated RBC 0.000 Nucleated RBC % (auto) 0.0 Smear Tech's Comments Sodium 138 Potassium 3.5 Chloride 109 H Carbon Dioxide 18 L Anion Gap 15 BUN 11 Creatinine 0.76 Estim Creat Clear Calc 112.5 Estimated GFR > 60 Random Glucose 148 H Lactic Acid 1.9 Calcium 8.9 D Total Bilirubin 0.4 Direct Bilirubin 0.2 AST 17 ALT 13 Alkaline Phosphatase 73 Total Protein 7.8 Albumin 3.8 Lipase 15 Urine Color Yellow Urine Appearance Clear Urine pH 6.0 Ur Specific [place] >= 1.030 H Urine Protein Negative Urine Glucose (UA) Negative Urine Ketones 15 Urine Blood Negative Urine Nitrite Negative Ur Leukocyte Esterase Trace H Urine RBC 0-2 Urine WBC 11-20 H Ur Squamous Epith Cells 0-2 Urine Bacteria 4+ Hyaline Casts 0-2 Urine Opiates Screen Not Detected Urine Fentanyl Screen Not Detected Ur Barbiturates Screen Not Detected Ur Phencyclidine Scrn Not Detected Ur Amphetamines Screen Not Detected U Benzodiazepines Scrn Not Detected Urine Cocaine Screen Not Detected U Marijuana (THC) Screen Not Detected 06/16/23 09:22 WBC 14.5 H RBC 3.55 L Hgb 10.9 L Hct 34.0 L MCV 95.8 MCH 30.7 MCHC 32.1 RDW 13.6 Plt Count 306 MPV 10.5 Immature Gran % (Auto) 0.4 Neut % (Auto) 90.1 H Lymph % (Auto) 5.1 L Page % (Auto) 4.3 Eos % (Auto) 0.0 Baso % (Auto) 0.1 Lymph # (Auto) 0.7 L Page # (Auto) 0.6 Eos # (Auto) 0.0 Baso # (Auto) 0.0 Abs Immat Gran (auto) 0.06 H Absolute Neuts (auto) 13.1 H Absolute Nucleated RBC 0.000 Nucleated RBC % (auto) 0.0 Smear Tech's Comments VERIFIED Sodium 139 Potassium 3.6 Chloride 109 H Carbon Dioxide 20 L Anion Gap 14 BUN 8 L Creatinine 0.75 Estim Creat Clear Calc 113.9 Estimated GFR > 60 Random Glucose 135 H Lactic Acid Calcium 8.0 L D Total Bilirubin Direct Bilirubin AST ALT Alkaline Phosphatase Total Protein Albumin Lipase Urine Color Urine Appearance Urine pH Ur Specific [place] Urine Protein Urine Glucose (UA) Urine Ketones Urine Blood Urine Nitrite Ur Leukocyte Esterase Urine RBC Urine WBC Ur Squamous Epith Cells Urine Bacteria Hyaline Casts Urine Opiates Screen Urine Fentanyl Screen Ur Barbiturates Screen Ur Phencyclidine Scrn Ur Amphetamines Screen U Benzodiazepines Scrn Urine Cocaine Screen U Marijuana (THC) Screen Narrative Narrative: 10/23/2020 [place] Monitor Basic rhythm Normal sinus rhythm No long pause or profound bradycardia Rare Premature atrial complexes One 17 beat run of PACs c/w PAF No diary submitted Airway Mallampati Class: IV Neck ROM: Full Loose/Missing/Broken Teeth: Yes Assessment and Plan Assessment Anesthesia Assessment: Anesthesia Plan Discussed and Chart Reviewed Final Anesthetic Review Family History of Problems with Anesthesia: No History of Problems with Anesthesia: No NPO: Yes ASA Class: III and Emergency Final Preanesthetic Review: Meds/Allgs Chart Reviewed, Consent Obtained/Reviewed and Anes Risks/Benef Reviewed Patient Risk: Intermediate Procedure Risk: Intermediate Anesthetic Plan Anesthetic Plan: MAC: and Agree w/ Assess. and Plan Disposition: Standard PACU
--- NOTE | 2023-06-16 15:54 | P.BOP_ITS ---
Brief Operative Note Date of Service: 06/16/23 Pre-op diagnosis: abnormal ct scan of colon Post-op diagnosis: same Procedure: colonosocpy Surgeon: Roman Montenegro Anesthesia: MAC Was an Take Out Waiter/Waitress used for this Procedure?: No Estimated blood loss (mL): 2 Condition: stable Disposition: PACU
--- NOTE | 2023-06-16 15:55 | PM.EVENT ---
Event Note Date of Service: 06/16/23 Event Note: colonoscopy note dictated colitis at splenic flexure with ulceration. no mass lesion identified biopsies obtained stool studies ordered f/u biopsy results Time Spent With Patient Time: Total time managing care of this patient today ____ minutes.
[2023-06-16] MEDS: 0.9 % Sodium Chloride Flush 3 ML SYRINGE IVFLUSH (18:04)
[2023-06-16] MEDS: Morphine Sulfate 4 MG/ML CARTRIDGE 2 MG IVPUSH (22:44)
--- NOTE | 2023-06-17 00:58 | OP_ITS ---
DATE OF SERVICE: 06/16/2023 SURGEON: Roman Montenegro MD INDICATIONS: Abnormal CT scan of the colon with abdominal pain. PREOPERATIVE DIAGNOSIS: POSTOPERATIVE DIAGNOSIS: PROCEDURE PERFORMED: Colonoscopy to the right colon with biopsy. ESTIMATED BLOOD LOSS: COMPLICATIONS: ANESTHESIA: Monitored anesthesia care. ASSISTANTS: SPECIMENS: DESCRIPTION OF PROCEDURE: A history and physical was performed. The risks and benefits of the procedure were explained to the patient and informed consent was obtained. The patient was placed in the left lateral decubitus position. A digital rectal exam was performed and was found to be normal. The Olympus pediatric video colonoscope was introduced into the rectum and advanced to the right colon, at which point, further advancement was not possible due to the unprepped colon. Examination was performed. The scope was removed. She tolerated the procedure well and was returned to the recovery area in stable condition. FINDINGS: There was a large amount of stool, which limited the sensitivity examination for detection of small polyps. The main finding was an ulcerated area in the splenic flexure measuring approximately 20 cm x 10 cm, consistent with ischemic colitis. Biopsies were obtained from the mucosa. No definite obstruction was identified. The colon was able to be decompressed nicely on withdrawal of the colonoscope. The exam was not adequate to rule out polyps. IMPRESSION: Colitis. RECOMMENDATION: 1. Follow up the biopsy results. 2. Monitor clinically. MD JOURDAN Villalba/AROLDO / [id number]
[2023-06-17] MEDS: 0.9 % Sodium Chloride 1,000 ML 100 ML IVCONT (02:34)
[2023-06-17 03:07] VITALS: BP 120/69; PULSE 80; RESP 16; TEMP 36; O2SAT 98
--- NOTE | 2023-06-17 03:49 | CONS_ITS ---
DATE OF SERVICE: 06/16/2023 REASON FOR CONSULTATION: Constipation, abdominal pain, and abnormal CT scan of colon. HISTORY OF PRESENT ILLNESS: This has been obtained from the patient and her with a medical imaging tech, and from the medical record. The patient is a 48-year-old female who was in her usual state of health up until about 3 days ago, when she began having difficulty with constipation. This progressed to the point where she tried some laxatives yesterday, but this was associated with abdominal pain, abdominal cramping, and vomiting. Based on that, she came to the ER. Prior to 3 days ago, she reports that her bowel movements have been very regular and comfortable. She denies any chronic abdominal pain. Her appetite has been good without any significant heartburn or dysphagia. She denies any associated hematochezia nor melena. She has not noticed any jaundice, fevers, nor any significant weight loss. She denies any known family history of colorectal cancer nor inflammatory bowel disease. She has never had a colonoscopy. MEDICATIONS: At home included Ambien, Effexor, buspirone, vitamin D, Lexapro, famotidine, ibuprofen p.r.n., and omeprazole. PAST MEDICAL HISTORY: Cholecystectomy, gastroesophageal reflux, depression and anxiety. Lip surgery. History of insomnia. She denies history of [place], diabetes, stroke, lung disease or kidney disease. SOCIAL HISTORY: She is . She does not smoke nor use any significant amounts of alcohol. FAMILY HISTORY: Noncontributory, although her son did have diverticulitis. REVIEW OF SYSTEMS: CONSTITUTIONAL: She has been feeling very well up until the past 2 to 3 days. CARDIAC: No chest pain. PULMONARY: No cough, hemoptysis. GI: As above. Urinary: No dysuria. No hematuria. NEUROLOGIC: No headache or seizures. PHYSICAL EXAMINATION: GENERAL: Again, the patient is a pleasant, alert, comfortable-appearing female. SKIN: Warm, dry. HEENT: Anicteric sclerae. NECK: Supple without lymphadenopathy. CHEST: Clear. CARDIAC: Normal S1 and S2. ABDOMEN: Soft, but slightly distended and tympanitic. Bowel sounds are diminished. There is some tenderness along the left abdominal wall. I do not palpate any masses. EXTREMITIES: Without edema. LABORATORIES: Her CT scan describes moderate distention of the ascending colon, transverse colon and proximal descending colon with a narrowing in the mid- descending colon with some mild stranding in that area. The appearance appeared concerning for a colonic obstruction. The small bowel appeared normal. There was no sign of any abscess nor free air. Her white blood cell count 14.5, hemoglobin 10.9, and platelets are 306,000. Normal electrolytes. BUN 8, creatinine 0.75. Total bilirubin 0.4, AST 17, ALT 13, alkaline phosphatase 73, lipase 15, and albumin 3.8. IMPRESSION: Given the patient's presentation, I am most concerned about a possible colon obstruction in relation to a mass lesion in the region of the descending colon. This would be an unusual place and an unusual presentation for a bowel obstruction due to adhesions. I do not think this represents diverticulitis given no sign of that on her exam. At this point, I would recommend an attempted limited colonoscopy to see if we can make a diagnosis of a colon mass or perhaps some other etiology of her presentation. Given her significant abdominal distention, we shall try to proceed with that today in the event that she does need surgery. Full consent has been obtained from her for this, including risks of bleeding and perforation. We did review that the main reason be doing this is to inspect for any type of colon mass that would need biopsies and surgical correction. Based on the CT scan and her presentation, I do not think this represents anything such as diverticulitis nor stricture formation. The patient was comfortable with this plan. Thank you for the consultation. MD ANTHONY Ordaz/AROLDO / [id number] GAY
[2023-06-17 07:18] VITALS: BP 112/67; PULSE 88; RESP 16; TEMP 36.1; O2SAT 97
[2023-06-17] MEDS: Morphine Sulfate 4 MG/ML CARTRIDGE 2 MG IVPUSH ×3 (07:33→19:56)
--- NOTE | 2023-06-17 08:55 | P.PNGS_ITS ---
Subjective Subjective Date of Service: 06/17/23 Interval history: Uneventful evening. Colonoscopic results reviewed. Abdominal symptoms improving. Physical Exam 2 Vital Signs: Vital Signs: Last Vital Signs Temp 96.9 F 06/17/23 07:18 Pulse 88 06/17/23 07:18 Resp 16 06/17/23 07:18 BP 112/67 06/17/23 07:18 Pulse Ox 97 06/17/23 07:18 O2 Del Method Room Air 06/17/23 07:18 BMI result Body Mass Index 35.7 GI: Other: Abdomen soft. Mild left-sided tenderness but without guarding, rebound, or rigidity. Objective Data Active Medications Acetaminophen (Acetaminophen Supp 650 Mg Supp.Rect) 650 mg CA Q6H PRN PRN Reason: Pain, Mild (Pain Scale 1-3) Sodium Chloride (Ns) 1,000 mls @ 100 mls/hr IVCONT .Q10H [facility] Last Admin: 06/17/23 02:34 Dose: 100 mls/hr Documented By: NELLY Morphine Sulfate (Morphine Sulfate 4 Mg/Ml Cartridge) 2 mg IVPUSH Q4H PRN; Protocol PRN Reason: Pain, Severe (Pain Scale 7-10) Last Admin: 06/17/23 07:33 Dose: 2 mg Documented By: HAYLEE Ondansetron HCl (Ondansetron Hcl 4 Mg/2 Ml Vial) 4 mg IVPUSH Q8H PRN PRN Reason: Nausea and Vomiting Last Admin: 06/16/23 21:55 Dose: 4 mg Documented By: TIM Sodium Biphosphate/Sodium Phosphate (Sodium Phosphate,Mckinley-Dibasic 133 Ml Enema) 133 ml CA ONCE [facility] Last Admin: 06/16/23 11:26 Dose: 133 ml Documented By: HECTOR Sodium Chloride (0.9 % Sodium Chloride Flush 3 Ml Syringe) 3 ml IVFLUSH QSHIFT [facility] Last Admin: 06/17/23 08:24 Dose: Not Given Documented By: HAYLEE Non-Admin Reason: IV Running Labs 06/16/23 09:22 06/16/23 09:22 Labs: Laboratory Results - last 24 hr 06/16/23 09:22 MCV 95.8 MCH 30.7 MCHC 32.1 RDW 13.6 Plt Count 306 MPV 10.5 Immature Gran % (Auto) 0.4 Neut % (Auto) 90.1 H Lymph % (Auto) 5.1 L Mckinley % (Auto) 4.3 Eos % (Auto) 0.0 Baso % (Auto) 0.1 Lymph # (Auto) 0.7 L Mckinley # (Auto) 0.6 Eos # (Auto) 0.0 Baso # (Auto) 0.0 Abs Immat Gran (auto) 0.06 H Absolute Neuts (auto) 13.1 H Absolute Nucleated RBC 0.000 Nucleated RBC % (auto) 0.0 Smear Tech's Comments VERIFIED Anion Gap 14 Estim Creat Clear Calc 113.9 Estimated GFR > 60 Random Glucose 135 H Calcium 8.0 L D Procedures Date of Service Date of Service: 06/17/23 Progress Note: A&P Assessment and plan (1) Colitis: Status: Acute Plan Advanced diet as tolerated, out of bed, incentive spirometry Time Spent With Patient Time: Total time managing care of this patient today ____ minutes. Quality Stroke Does the patient have a stroke diagnosis?: No VTE Prior VTE?: No VTE Risk Level:: Medical - moderate - high VTE Device Contraindication: Treatment Not Indicated VTE Drug Contraindication: N/A - Med Ordered
[2023-06-17 09:54] LABS: Hematocrit 31.7 % (37.0-47.0); Hemoglobin 10.2 g/dl (12.0-16.0); Mean Corpuscular HGB Conc 32.2 g/dl (31.0-35.0); Mean Corpuscular Volume 96.4 fL (80.0-98.0); Mean Platelet Volume 10.2 fL (9.4-12.3); Platelet Count 258 X10*3/uL (160-400); Red Blood Count 3.29 X10*6/uL (4.20-5.50); Red Cell Distribution Width 13.9 % (11.0-16.0); White Blood Count 8.9 X10*3/uL (4.8-10.8)
--- NOTE | 2023-06-17 12:43 | HO.POSTANES ---
Post Anesthesia Evaluation Post Anesthesia Evaluation Date of Service: 06/17/23 Vital Signs: Vital Signs Temp Pulse Resp BP Pulse Ox O2 Del Method 06/17/23 07:18 96.9 F 88 16 112/67 97 Room Air 06/17/23 03:07 96.8 F 80 16 120/69 98 Room Air Anesthesia: Monitored Mental Status: Awake Pain Control: Satisfactory Nausea/Vomiting: None Hydration: Adequate Anesthesia-Related Issues: No Anes. Related Issues
[2023-06-17] MEDS: ondansetron HCL 4 MG/2 ML VIAL IVPUSH ×2 (13:58→20:12)
--- NOTE | 2023-06-17 14:43 | MHC.CM.PN ---
Per MD rounds plan to advance diet and discharge tomorrow. DP home self care he will arrange for transport home.
[2023-06-17 15:08] VITALS: BP 110/60; PULSE 83; RESP 18; TEMP 36.3; O2SAT 96
[2023-06-17] MEDS: 0.9 % Sodium Chloride Flush 3 ML SYRINGE IVFLUSH ×2 (16:16→19:14)
[2023-06-17 19:15] VITALS: BP 116/66; PULSE 87; RESP 18; TEMP 36.4; O2SAT 99
--- NOTE | 2023-06-17 19:47 | P.PNGI_ITS ---
Subjective Subjective Date of Service: 06/17/23 Interval History: Patient seen at noon today. She reports definitely feeling better than yesterday with much less abdominal pain. She has been tolerating liquids and denies any further N/V. She denies BM's, bleeding, or passage of flatus. Critical Care Time (minutes): 0 Physical Exam 2 Vital Signs: Vital Signs: Last Vital Signs Temp 97.5 F 06/17/23 19:15 Pulse 87 06/17/23 19:15 Resp 18 06/17/23 19:15 BP 116/66 06/17/23 19:15 Pulse Ox 99 06/17/23 19:15 O2 Del Method Room Air 06/17/23 19:15 BMI result Body Mass Index 35.7 Const: General: cooperative, healthy appearing, comfortable, no acute distress, well developed, alert, awake and Physically active GI: Other: Abd-Improved from yesterday---+BS, soft, nondisteneded, and only minimal tenderness in the LLQ now Objective Data Labs 06/17/23 09:30 06/16/23 09:22 Labs: Laboratory Results - last 24 hr 06/17/23 09:30 WBC 8.9 RBC 3.29 L Hgb 10.2 L Hct 31.7 L MCV 96.4 MCH 31.0 MCHC 32.2 RDW 13.9 Plt Count 258 MPV 10.2 Absolute Nucleated RBC 0.000 Nucleated RBC % (auto) 0.0 Hold Yellow Top See Note Microbiology Microbiology Results: Microbiology 06/16/23 Unknown Urine clean catch - Clean Catch Midstream Urine Culture - Preliminary Gram negative brady Procedures Date of Service Date of Service: 06/17/23 Progress Note: A&P Assessment and plan (1) Colitis: Status: Acute Assessment and Plan: Imp: Based on her presentation, colonoscopy findings with the focal area of colitis, and rapid spontaneous improvement, this most likely represented an episode of transient ischemic colitis. This does not appear to represent a chronic colitis such as Crohn's disease based on the clinical history. Her abdominal exam is significantly improved as compared to yesterday. Rec: Observe. Check path report when available. Advance diet tomorrow, 06/18, to low residue. She can be discharged tomorrow, 06/18, if stable. She should follow up with us in the office to set up an eventual complete colonoscopy both for reassessment of the colitis and for screening purposes. Thanks (2) Colonic obstruction: Status: Acute Time Spent With Patient Time: Total time managing care of this patient today ____ minutes. Quality Stroke Does the patient have a stroke diagnosis?: No VTE Prior VTE?: No VTE Risk Level:: Medical - moderate - high VTE Device Contraindication: Treatment Not Indicated VTE Drug Contraindication: N/A - Med Ordered
--- NOTE | 2023-06-17 20:12 | MHC.PIE ---
p; pt c/o pain and nausea. prn morphine given, note; prn zofran q8 given at 1358. i; dr morris notified; ok to give zofran early dose. e; will cont to monitor
[2023-06-18 03:26] VITALS: BP 114/61; PULSE 77; RESP 18; TEMP 36.2; O2SAT 98
[2023-06-18 07:13] VITALS: BP 119/79; PULSE 94; RESP 17; TEMP 36; O2SAT 98
[2023-06-18] MEDS: 0.9 % Sodium Chloride Flush 3 ML SYRINGE IVFLUSH (08:29)
--- NOTE | 2023-06-18 08:42 | P.PNGS_ITS ---
Subjective Subjective Date of Service: 06/18/23 Interval history: Patient's abdominal symptoms have markedly improved. She is tolerating her liquid diet. She is hungry. Passed some flatus. Physical Exam 2 Vital Signs: Vital Signs: Last Vital Signs Temp 96.8 F 06/18/23 07:13 Pulse 94 06/18/23 07:13 Resp 17 06/18/23 07:13 BP 119/79 06/18/23 07:13 Pulse Ox 98 06/18/23 07:13 O2 Del Method Room Air 06/18/23 07:13 BMI result Body Mass Index 35.7 GI: Other: Abdomen soft. Very mild left lower quadrant tenderness but without any guarding, rebound, or rigidity. Objective Data Active Medications Acetaminophen (Acetaminophen Supp 650 Mg Supp.Rect) 650 mg PA Q6H PRN PRN Reason: Pain, Mild (Pain Scale 1-3) Morphine Sulfate (Morphine Sulfate 4 Mg/Ml Cartridge) 2 mg IVPUSH Q4H PRN; Protocol PRN Reason: Pain, Severe (Pain Scale 7-10) Last Admin: 06/17/23 19:56 Dose: 2 mg Documented By: SULEMA Ondansetron HCl (Ondansetron Hcl 4 Mg/2 Ml Vial) 4 mg IVPUSH Q8H PRN PRN Reason: Nausea and Vomiting Last Admin: 06/17/23 20:12 Dose: 4 mg Documented By: SULEMA Sodium Biphosphate/Sodium Phosphate (Sodium Phosphate,Stanly-Dibasic 133 Ml Enema) 133 ml PA ONCE [facility] Last Admin: 06/16/23 11:26 Dose: 133 ml Documented By: HECTOR Sodium Chloride (0.9 % Sodium Chloride Flush 3 Ml Syringe) 3 ml IVFLUSH QSHIFT [facility] Last Admin: 06/18/23 08:29 Dose: 3 ml Documented By: COTEMA Labs 06/17/23 09:30 06/16/23 09:22 Labs: Laboratory Results - last 24 hr 06/17/23 09:30 MCV 96.4 MCH 31.0 MCHC 32.2 RDW 13.9 Plt Count 258 MPV 10.2 Absolute Nucleated RBC 0.000 Nucleated RBC % (auto) 0.0 Hold Yellow Top See Note Microbiology Microbiology Results: Microbiology 06/16/23 Unknown Urine Culture - Final Urine clean catch - Clean Catch Midstream Klebsiella pneumoniae Procedures Date of Service Date of Service: 06/18/23 Progress Note: A&P Assessment and plan (1) Colitis: Status: Acute Plan To advanced diet as tolerated. Continue current plan. No acute surgical issues at this time. Will follow-up p.r.n.. Time Spent With Patient Time: Total time managing care of this patient today ____ minutes. Quality Stroke Does the patient have a stroke diagnosis?: No VTE Prior VTE?: No VTE Risk Level:: Medical - moderate - high VTE Device Contraindication: Treatment Not Indicated VTE Drug Contraindication: N/A - Med Ordered
--- NOTE | 2023-06-18 10:30 | PM.DS ---
DS: Providers Provider Date of Service: 06/18/23 Date of admission: 06/16/23 05:44 Primary care physician: Pili Rudd MD Consults: 06/16/23 05:44 Consult to Gastroenterology Routine Consulting Provider: Darren Tobar Reason for consultation: colonic obstruction Has provider been notified: Yes 06/16/23 08:32 Consult to General Surgery Routine Consulting Provider: [facility] [place] [facility] Reason for consultation: Colonic obstruction, ? mass Has provider been notified: No DS: Diagnosis Discharge Diagnosis (1) Colitis: Status: Acute DS: Summary Hospital Course Hospital Course: admission hpi Chief Complaint: abdominalPain Citizen Of [place]-speaking only, history is obtained with the help of an certified court/medical interpreter this is a 48-year-old female past medical history of depression, anxiety, GERD, history of low back pain, vertigo, comes into the hospital with complaints of abdominal pain. pain is described as 10/10, localized to the lower abdomen, nonradiating, associated with nausea vomiting. Patient reports that she has constipation for 2 days, she took 2 pills of Colace and immediately after started developing significant pain. Reports no history of constipation or similar episode in the past. No fever chills, no chest pain, no urinary symptoms and no lower extremity edema On arrival to the ED patient hemodynamically stable no significant abnormal vitals Labs are significant for WBC count of 8.2, hemoglobin of 12.0, labs otherwise unremarkable UA shows leukocyte Estrace trace and some WBC but patient has no symptoms Normal lactic acid Abdominal pelvic CT shows distension of the ascending transverse and proximal descending colon relatively abrupt narrowing in the mid descending colon with luminal collapse distal to the site, this is suspicious for colonic obstruction malignant cannot be ruled out. Gastroenterology consulted, patient will undergo evaluation in a.m.. Hospital course: Patient presented with abdominal localized to te lower abdomen with nasuea and vomitting and at least 2 days of constipation and no relief with colace. work up revealed normal WBC, CT of the abdomen showed distension of the ascending transverse and proximal descending colon relatively abrupt narrowing in the mid descending colon with luminal collapse distal to the site, this is suspicious for colonic obstruction malignant cannot be ruled out. She was evaluated by , gastrointerologist and underwent colonoscopy the next day with finding of colitis at splenic flexure with ulceration. no mass lesion identified, biopsy taken and result pending, the finding suspicious for focal ischemic colitis. Diet has been advanced and she is tolerating low residual diet at this time. Time Spent with Patient Time attestation: Total time managing care of this patient today ____ minutes. Discharge coordination time: Greater than 30 minutes Quality: Safe Use of Opioids Does Pt have an Active Cancer Diagnosis on the Problem List?: No Quality: Stroke Does the patient have a stroke diagnosis?: No Physical Exam Vital Signs: Vital Signs: Last Vital Signs Temp 96.8 F 06/18/23 07:13 Pulse 94 06/18/23 07:13 Resp 17 06/18/23 07:13 BP 119/79 06/18/23 07:13 Pulse Ox 98 06/18/23 07:13 O2 Del Method Room Air 06/18/23 07:13 BMI result Body Mass Index 35.7 DS: Data Data Completed and Pending Pending studies at discharge: Pending at discharge 06/16/23 15:31 Surgical [PTH] Routine Discharge Plan Discharge Anticipated Discharge Date/Time: 06/18/23 10:36 Patient Disposition: Home, Self-Care Discharge Diagnosis: Colitis, vomiting and abdominal pain Referrals: Pili Connell MD [Primary Care Provider] - 1 Week Discharge Medications: Continued ergocalciferol (vitamin D2) 50 mcg (2,000 unit) tablet 50 mcg PO DAILY 90 Days Qty: 90 1RF omeprazole 20 mg capsule,delayed release(DR/EC) 20 mg PO DAILY 90 Days Qty: 90 1RF famotidine [Pepcid] 20 mg tablet 20 mg PO BEDTIME Qty: 90 3RF ibuprofen 800 mg tablet 800 mg PO Q8H PRN (Reason: pain) 30 Days Qty: 90 1RF escitalopram oxalate 20 mg tablet 20 mg PO DAILY zolpidem 10 mg tablet 10 mg PO BEDTIME PRN (Reason: Insomnia) buspirone 15 mg tablet 15 mg PO TID Diet: Advance to usual diet Activity on Discharge: As tolerated Stand Alone Forms: Patient Portal Discharge page Care Plan Goals: Full recovery from colitis Health Concerns: colitis Plan of Treatment: Whether or not you will need more treatment will depend on the biopsy result, which is still pending, and Dr. Tobar will discuss it with you when it is available. Assessment: as above
--- NOTE | 2023-06-18 11:24 | MHC.CM.PN ---
Patient is discharged to home self care. She has arranged for transport home from family.
== END 2023-06-18 14:48 | disposition home or self-care (01) | DRG 246 ==
LOC: HO.ED 03:44 → HO.EDOVER 05:49 → HO.S3 16:43
PROVIDERS: Internal Medicine Gastroenterology; Admitting Provider Internal Medicine; Emergency Provider Emergency Medicine; PCP Internal Medicine; Visit Provider Internal Medicine
PROC: 0DJD8ZZ Inspection of Lower Intestinal Tract, Via Natural or Artificial Opening Endoscopic (ICD-10-PCS; CPT 45378; principal; 2023-06-16 12:50)
DX: K55.8 Other vascular disorders of intestine (principal); F32.A Depression, unspecified; F41.9 Anxiety disorder, unspecified; K59.00 Constipation, unspecified; Z23 Encounter for immunization; Z87.891 Personal history of nicotine dependence; Z79.899 Other long term (current) drug therapy
CPT/HCPCS: 36415; 74177; 80048; 80076; 80307; 81001; 83605; 83690; 85025; 85027; 87086; 87088; 87186; 88305; 90686; 99285; J1170; J1790; J2250; J2270; J2405; Q9967

== ENCOUNTER → 2023-06-16 05:44 | Outpatient (BNV) | payer OTHER, SELFPAY | PROVIDERS: Admitting Provider Internal Medicine; Emergency Provider Emergency Medicine; PCP Internal Medicine; Visit Provider Internal Medicine | DX: K52.9 Noninfective gastroenteritis and colitis, unspecified (principal) | CPT/HCPCS: 99223; 99239; 99499 ==

== ENCOUNTER → 2023-06-16 05:44 | Outpatient (BNV) | payer OTHER, SELFPAY | PROVIDERS: Admitting Provider Internal Medicine; Emergency Provider Emergency Medicine; PCP Internal Medicine; Visit Provider Surgery | DX: K52.9 Noninfective gastroenteritis and colitis, unspecified (principal) | CPT/HCPCS: 99222; 99232 ==

== ENCOUNTER 2023-06-25 08:47 | Outpatient (AMB) | payer OTHER, SELFPAY ==
[2023-06-25 08:50] VITALS: BP 118/72; PULSE 90; O2SAT 99; BMI 34.5
--- NOTE | 2023-06-25 08:50 | MHC.PC.OV ---
Vital Signs 06/25/23 08:50 Height 5 ft 7 in Weight 220 lb 0.4 oz BMI 34.5 BP 118/72 Blood Pressure Location Lt brachial Position Sitting Pulse 90 Pulse Source Pulse Oximeter Temp Source Skin Pulse Oximetry (%) 99 Oxygen Delivery Method Room Air [place] [facility] [place] Intake Note: Patient is here to follow-up after a visit [place] [facility] [place] colitis Computer Networking Instructor Adjunct Required: Yes Computer Networking Instructor Adjunct Language: Tamazight Allergies No Known Allergies Allergy (Verified 06/25/23 09:03) Medication List - Last Reconciled 06/25/23 by VAIBHAV Salgado buspirone 15 mg PO TID ergocalciferol (vitamin D2) 50 mcg PO DAILY 90 days escitalopram oxalate 20 mg PO DAILY famotidine (Pepcid) 20 mg PO BEDTIME ibuprofen 800 mg PO Q8H PRN 30 days omeprazole 20 mg PO DAILY 90 days zolpidem 10 mg PO BEDTIME PRN Tobacco use date assessed: 06/25/23 Dental Screening Dental Screen Date: 06/25/23 Did you have a dental visit in the last 12 months?: No Did you have a dental problem in the last 6 months where you did not have access to dental care?: No [place] [facility] [place] HPI Details Patient is a 48-year-old female who presents today to follow-up after [facility] discharge. Admission date 06/16/2023, discharge date 06/18/2023. Patient of Dr. Kinsey. Per discharge summary: this is a 48-year-old female past medical history of depression, anxiety, GERD, history of low back pain, vertigo, comes into the hospital with complaints of abdominal pain. pain is described as 10/10, localized to the lower abdomen, nonradiating, associated with nausea vomiting. Patient reports that she has constipation for 2 days, she took 2 pills of Colace and immediately after started developing significant pain. Reports no history of constipation or similar episode in the past. No fever chills, no chest pain, no urinary symptoms and no lower extremity edema On arrival to the ED patient hemodynamically stable no significant abnormal vitals Labs are significant for WBC count of 8.2, hemoglobin of 12.0, labs otherwise unremarkable UA shows leukocyte Estrace trace and some WBC but patient has no symptoms Normal lactic acid Abdominal pelvic CT shows distension of the ascending transverse and proximal descending colon relatively abrupt narrowing in the mid descending colon with luminal collapse distal to the site, this is suspicious for colonic obstruction malignant cannot be ruled out. Gastroenterology consulted, patient will undergo evaluation in a.m.. Hospital course: Patient presented with abdominal localized to te lower abdomen with nasuea and vomitting and at least 2 days of constipation and no relief with colace. work up revealed normal WBC, CT of the abdomen showed distension of the ascending transverse and proximal descending colon relatively abrupt narrowing in the mid descending colon with luminal collapse distal to the site, this is suspicious for colonic obstruction malignant cannot be ruled out. She was evaluated by , gastrointerologist and underwent colonoscopy the next day with finding of colitis at splenic flexure with ulceration. no mass lesion identified, biopsy taken and result pending, the finding suspicious for focal ischemic colitis. Diet has been advanced and she is tolerating low residual diet at this time. Plan of Treatment: Whether or not you will need more treatment will depend on the biopsy result, which is still pending, and Dr. Tobar will discuss it with you when it is available. Diagnosis Colon, at 75 cm, biopsy: Active colitis, severe, with ulcer and fibrino-inflammatory exudate (see comment). Comment: No chronic changes seen. The differential includes ischemic colitis and C difficile/other infectious colitis and clinical correlation is necessary. Today, patient reports ongoing lower abdominal pain mostly on the left side, she reports nausea, no vomiting. Patient reports that in the hospital she was treated with pain medications and nausea medications, patient reports that she was not sent home with nausea medications. Patient reports intermittent diarrhea/constipation. No blood in stool. Reports last bowel movement yesterday with mild constipation. No fever or chills. Patient reports that she is waiting for a call from GI office for plan of care. Patient is a [place]-speaking and online historic interpreter was incorporated into this visit [id number]. [facility] Medical History Hearing loss Lip lesion Physical exam Mild recurrent major depression Class 2 obesity with body mass index (BMI) of 37.0 to 37.9 in adult Aphthous ulcer Atypical mole Obese GERD (gastroesophageal reflux disease) Syncope Low back pain Vertigo Hypovitaminosis D B12 deficiency Insomnia Depression with anxiety Surgical History History of tooth extraction History of laparoscopic cholecystectomy History of section History of tubal ligation Family History Father CHF (congestive heart failure) Myocardial infarction Diabetes Mother Diabetes Hypertension Family/Other FH: uterine cancer Leukemia Social History Household Members: Family Housing: Apartment Are you a primary direct support professional caregiver to a significant other at home: No Do you presently have visiting nurse or other home services: No Alcohol intake: current Alcohol intake frequency: a few times a month Alcohol type: beer and wine Patient Tobacco Use Status: Former Tobacco user Tobacco use type: Cigarette Cigarette Packs Per Day: 1 Years Smoked: 5 e-Cigarette/Vaping Use: Never Used Second Hand Smoke Exposure: No Advance Directives Date on File: 06/16/23 service: No Current occupational status: unemployed Cognitive needs: No Hearing needs: No Vision needs: No Female Reproductive History Menstrual Age of Menarche: 9 Questionnaire Thrive Questionnaire Date Thrive assessed: 06/16/23 AUDIT C Alcohol Use Questionnaire (AUDIT-C) 1. How often do you have a drink containing alcohol?: Monthly or less 2. How many drinks containing alcohol do you have on a typical day when you are drinking?: 1 or 2 3. How often do you have six or more drinks on one occasion?: Never Total Score: 1 Score Reviewed/Action Taken: No BENTON-7 AMB Questionnaire BENTON-7 Date BENTON - 7 assessed: 01/08/23 Source: Developed by Drs. Darren Bui, Gisele Ge, Edvin French and colleagues, with an educational primo from [employer]. Review of Systems Const Denies body aches, Denies chills, Denies fever(s) and Denies headache(s) ENT Denies dizziness, Denies otalgia, Denies headache(s), Denies nasal discharge, Denies sinus pain and Denies sore throat Card Denies chest pain, Denies edema, Denies lightheadedness and Denies dyspnea Resp Denies dyspnea and Denies wheezing GI Reports abdominal pain, Denies hematochezia, Reports constipation, Reports diarrhea, Reports nausea and Denies vomiting Denies dysuria Musc Denies myalgias Skin/Breast Denies rash Neuro Denies dizziness and Denies headache(s) Aller/Immun Denies wheezing Physical exam (Primary Care) Vital Signs: Last Vital Signs Pulse 90 06/25/23 08:50 BP 118/72 06/25/23 08:50 Pulse Ox 99 06/25/23 08:50 Oxygen Delivery Method Room Air 06/25/23 08:50 BMI result Body Mass Index 34.5 Tobacco/Smoking Status: Tobacco use Status Tobacco use date assessed 06/25/23 06/25/23 08:57 Patient Tobacco Use Status Former Tobacco user 06/25/23 08:57 Tobacco use type Cigarette 06/25/23 08:57 e-Cigarette/Vaping Use Never Used 06/25/23 08:57 Thrive Assessment: Date of Thrive Assessment Date Thrive assessed 06/16/23 06/25/23 08:57 Const General: cooperative and no acute distress Orientation/consciousness: patient oriented x3 HENMT Head: Yes normocephalic and Yes atraumatic Mouth: oropharynx normal and moist mucous membranes Throat: Yes posterior oropharynx normal Eyes General: appearance normal, both eyes and all related structures Neck Neck: Yes normal visual inspection, Yes full ROM and Yes no lymphadenopathy Resp Effort & Inspection: normal respiratory effort and able to speak in complete sentences Auscultation: clear to auscultation bilaterally, no crackles, no rales, no rhonchi and no wheezes Cardio Rate: regular rate Rhythm: regular rhythm Heart sounds: S1 normal heart sound present and S2 normal heart sound present GI Palpation (GI): Soft to palpation, not firm, Tenderness to palpation present (GI) in the epigastrum, in the LLQ and in the RLQ; with no rebound tenderness, no guarding, not rigid and no hepatosplenomegaly Auscultation: normal bowel sounds Skin General skin exam: no rashes or lesions noted Neuro General: patient oriented x3 Gait exam (Neuro): Normal gait present Extrem General: Yes full ROM and No edema Assessment and Plan Assessment & Plan (1) Hospital discharge follow-up: Code(s): Z09 - Encounter for follow-up examination after completed treatment for conditions other than malignant neoplasm (2) Colitis: Code(s): K52.9 - Noninfective gastroenteritis and colitis, unspecified Plan: Diagnosis Colon, at 75 cm, biopsy: Active colitis, severe, with ulcer and fibrino-inflammatory exudate (see comment). Comment: No chronic changes seen. The differential includes ischemic colitis and C difficile/other infectious colitis and clinical correlation is necessary. Urgent referral placed to GI Will test for C diff (? Antibiotic) Haylee p.r.n. provided for nausea Start prednisone taper Signs and symptoms reviewed when to notify provider or go to the emergency department Case discussed with JAY Alcazar Orders: Orders CDiff Gene PCR Today K52.9 - Noninfective gastroenteritis and colitis, unspecified Referrals Gastroenterology Referral K52.9 - Noninfective gastroenteritis and colitis, unspecified Medications: New prednisone Take 4 tablets for 3 days then, Take 3 tablets for 3 days then, Take 2 tablets 3 days then, Take 1 tablet 3 days and stop 10 mg PO DAILY 63 tabs 0RF K52.9 - Noninfective gastroenteritis and colitis, unspecified prednisone Take 4 tablets for 3 days then, Take 3 tablets for 3 days then, Take 2 tablets 3 days then, Take 1 tablet 3 days and stop 10 mg PO DAILY 30 tabs 0RF K52.9 - Noninfective gastroenteritis and colitis, unspecified ondansetron 4 mg PO Q8H PRN 15 tabs 0RF nausea and vomiting K52.9 - Noninfective gastroenteritis and colitis, unspecified Coding Level of Care Code Est Pt Level 3 (00091) Diagnoses Hospital discharge follow-up Z09 Colitis K52.9
== END 2023-06-25 10:07 | disposition home or self-care (01) ==
PROVIDERS: PCP Internal Medicine; Visit Provider Nurse Practitioner Family
DX: K52.9 Noninfective gastroenteritis and colitis, unspecified (principal); E66.9 Obesity, unspecified; Z68.34 Body mass index [BMI] 34.0-34.9, adult; E55.9 Vitamin D deficiency, unspecified
CPT/HCPCS: 99213

== ENCOUNTER 2023-07-27 15:38 | Outpatient (AMB) | payer OTHER, SELFPAY ==
[2023-07-27 15:49] VITALS: BP 118/82; PULSE 90; O2SAT 98; BMI 34.3
--- NOTE | 2023-07-27 15:49 | MHC.PC.OV ---
Vital Signs 07/27/23 15:49 Height 5 ft 7 in Weight 219 lb 4 oz BMI 34.3 BP 118/82 Blood Pressure Location Lt brachial Position Sitting Pulse 90 Pulse Source Pulse Oximeter Pulse Oximetry (%) 98 Oxygen Delivery Method Room Air Intake Visit Reasons: Annual exam Maintenance Technician Required: No Accompanied by: Self / Same As Patient Allergies No Known Allergies Allergy (Verified 07/27/23 16:12) Medication List - Last Reconciled 07/27/23 by Pili Rudd MD buspirone 15 mg PO TID ergocalciferol (vitamin D2) 50 mcg PO DAILY 90 days escitalopram oxalate 20 mg PO DAILY famotidine (Pepcid) 20 mg PO BEDTIME ibuprofen 800 mg PO Q8H PRN 30 days omeprazole 20 mg PO DAILY 90 days ondansetron 4 mg PO Q8H PRN zolpidem 5 mg PO BEDTIME PRN Tobacco use date assessed: 06/25/23 Dental Screening Dental Screen Date: 07/27/23 Did you have a dental visit in the last 12 months?: Yes Did you have a dental problem in the last 6 months where you did not have access to dental care?: No Was dental information given to patient?: Patient has dentist HPI HPI Comments History of Present Illness Details This is a 48-year-old female that comes for her physical exam. Last mammogram was 2021. Last Pap smear was 2020. Colonoscopy was done recently in 2022. Denies any chest pain or shortness of breath. Has mild recurrent major depression stable with escitalopram and this is follow by Psychiatry. [facility] Medical History Hearing loss Lip lesion Physical exam Mild recurrent major depression Class 2 obesity with body mass index (BMI) of 37.0 to 37.9 in adult Aphthous ulcer Atypical mole Obese GERD (gastroesophageal reflux disease) Syncope Low back pain Vertigo Hypovitaminosis D B12 deficiency Insomnia Depression with anxiety Surgical History History of tooth extraction History of laparoscopic cholecystectomy History of section History of tubal ligation Family History Father CHF (congestive heart failure) Myocardial infarction Diabetes Mother Diabetes Hypertension Family/Other FH: uterine cancer Leukemia Social History Household Members: Family Housing: Apartment Are you a primary animal care specialist to a significant other at home: No Do you presently have visiting nurse or other home services: No Alcohol intake: current Alcohol intake frequency: a few times a month Alcohol type: beer and wine Patient Tobacco Use Status: Former Tobacco user Tobacco use type: Cigarette Cigarette Packs Per Day: 1 Years Smoked: 5 e-Cigarette/Vaping Use: Never Used Second Hand Smoke Exposure: No Advance Directives Date on File: 06/16/23 service: No Current occupational status: unemployed Cognitive needs: No Hearing needs: No Vision needs: No Female Reproductive History Menstrual Age of Menarche: 9 Questionnaire Thrive Questionnaire Date Thrive assessed: 06/16/23 BENTON-7 AMB Questionnaire BENTON-7 Date BENTON - 7 assessed: 01/08/23 Source: Developed by Drs. Darren Bui, Gisele Ge, Edvin French and colleagues, with an educational primo from [employer]. Review of Systems Const All systems reviewed & are unremarkable except as noted in HPI and below Eyes Reports no additional complaints, Denies change in vision and Denies other visual disturbances Card Denies chest pain at rest, Denies chest pain with activity, Denies edema, Denies irregular heart rhythm, Denies claudication, Denies dyspnea, Denies dyspnea on exertion, Denies orthopnea, Denies paroxysmal nocturnal dyspnea and Denies slow heart rate Resp Denies cough, Denies dyspnea and Denies dyspnea on exertion GI Denies abdominal pain, Denies change in bowel habits, Denies excessive flatus, Denies nausea and Denies vomiting Denies urinary incontinence, Denies urinary hesitancy and Denies urinary urgency Musc Denies abnormal gait, Denies atrophy, Denies deformity and Denies limited range of motion Skin/Breast Denies bleeding lesions, Denies changing lesions and Denies rash Neuro Denies abnormal gait, Denies behavioral changes, Denies confusion and Denies lack of coordination Psych Denies behavioral changes and Denies confusion Physical exam (Primary Care) Vital Signs: Last Vital Signs Pulse 90 07/27/23 15:49 BP 118/82 07/27/23 15:49 Pulse Ox 98 07/27/23 15:49 Oxygen Delivery Method Room Air 07/27/23 15:49 BMI result Body Mass Index 34.3 Tobacco/Smoking Status: Tobacco use Status Tobacco use date assessed 06/25/23 07/27/23 15:54 Patient Tobacco Use Status Former Tobacco user 07/27/23 15:54 Tobacco use type Cigarette 07/27/23 15:54 e-Cigarette/Vaping Use Never Used 07/27/23 15:54 Thrive Assessment: Date of Thrive Assessment Date Thrive assessed 06/16/23 07/27/23 15:54 Const General: No confusion Orientation/consciousness: patient oriented x3 and No confusion HENMT Head: Yes normal to inspection, Yes normocephalic and Yes atraumatic Ears: external ears normal Eyes General: appearance normal, both eyes and all related structures Eyelids: Yes eyelids normal Conjunctivae: conjunctivae normal Neck Neck: Yes normal visual inspection and Yes supple Resp Effort & Inspection: normal respiratory effort Auscultation: clear to auscultation bilaterally Cardio Jugular venous distension: no JVD Rate: regular rate Rhythm: regular rhythm Heart sounds: S1 normal heart sound present and S2 normal heart sound present GI Inspection: Yes normal to inspection Palpation (GI): Soft to palpation and nontender Auscultation: normal bowel sounds Skin General skin exam: no rashes or lesions noted Neuro General: patient oriented x3, no focal motor deficits and No confusion Extrem General: Yes full ROM Psych Appearance: grossly normal Assessment and Plan Assessment & Plan (1) Physical exam: Code(s): Z00.00 - Encounter for general adult medical examination without abnormal findings Plan: Repeat in a year (2) Mild recurrent major depression: Code(s): F33.0 - Major depressive disorder, recurrent, mild Plan: Continue escitalopram. Follow-up with psychiatry. Orders: Orders Lipid Panel Today E78.5 - Hyperlipidemia, unspecified, Z00.00 - Encounter for general adult medical examination without abnormal findings Vitamin B12 and Folate Today E53.8 - Deficiency of other specified B group vitamins Vitamin D 25-OH Total Today E55.9 - Vitamin D deficiency, unspecified MM screening mammo BI Today Z12.31 - Encounter for screening mammogram for malignant neoplasm of breast Comprehensive [place]. Panel Fast Today Z00.00 - Encounter for general adult medical examination without abnormal findings Complete Blood Count Auto Diff Today D64.9 - Anemia, unspecified, D72.819 - Decreased white blood cell count, unspecified Referrals Gastroenterology Referral K52.9 - Noninfective gastroenteritis and colitis, unspecified Medications: New methylcellulose (laxative) (Citrucel) 500 mg PO DAILY 90 days 90 tabs 1RF Coding Level of Care Code Est Pt Prev Care 40-64y(98958) Diagnoses Physical exam Z00.00 Mild recurrent major depression F33.0 Time Spent (min) 32
== END 2023-07-27 16:24 | disposition home or self-care (01) ==
PROVIDERS: Visit Provider Internal Medicine
DX: Z00.00 Encounter for general adult medical examination without abnormal findings (principal); F33.0 Major depressive disorder, recurrent, mild
CPT/HCPCS: 99396

== ENCOUNTER 2023-08-20 15:11 | Outpatient (REF) | payer OTHER, SELFPAY ==
--- NOTE | ~2023-08-20 | MM_ITS ---
EXAMINATION: MM SCREENING DIGITAL BREAST TOMOSYNTHESIS, BILATERAL CLINICAL INFORMATION: Screening. Asymptomatic. COMPARISON: Mammography: This study is compared with prior exams dating back to 2018. TECHNIQUE: Digital breast tomosynthesis is performed in both the craniocaudal and mediolateral oblique views along with computer-aided detection (CAD). Synthesized 2D images are generated from the tomosynthesis. FINDINGS: The breasts are heterogeneously dense, which may obscure small masses (ACR BI-RADS breast composition Category c). There are no significant masses, abnormal calcifications, or other abnormalities. There are few, bilateral, unchanged, benign calcifications. MM/MM tomosynthesis screening BI IMPRESSION: No mammographic evidence of malignancy. ASSESSMENT: BI-RADS BI-RADS 2 - Benign Findings RECOMMENDATION: Routine annual mammography screening. 1 year F/U This examination should not preclude the clinical evaluation of a suspicious palpable abnormality. This patient's information was entered into a reminder system with a target due date for their next mammogram.
== END 2023-08-20 15:12 | disposition home or self-care (01) ==
LOC: HO.MAMMO 15:11
PROVIDERS: PCP Internal Medicine; Visit Provider Internal Medicine
DX: Z12.31 Encounter for screening mammogram for malignant neoplasm of breast (principal)
CPT/HCPCS: 77063; 77067

== ENCOUNTER → 2023-08-20 15:30 | Outpatient (BNV) | payer OTHER, SELFPAY | PROVIDERS: PCP Internal Medicine; Visit Provider Radiology Diagnostic Radiology | DX: Z12.31 Encounter for screening mammogram for malignant neoplasm of breast (principal) | CPT/HCPCS: 77063; 77067 ==

== ENCOUNTER 2023-10-14 11:49 | Day surgery (SDC) | payer OTHER, SELFPAY ==
[2023-10-12 15:06] VITALS: BMI 34.3
--- NOTE | 2023-10-13 10:04 | HO.ANESPROP2 ---
HPI - Anesthesia Eval Consult details Narrative: 48yo F for Colonoscopy s/p colo 05/2023 with TIVA PMFSH Active Problems Active Problems: All Active Problems (Updated 06/26/23 @ 00:02 by Galina Ramirez) Hospital discharge follow-up (Acute) Colitis (Acute) Adhesive capsulitis of left shoulder (Acute) Left shoulder pain (Acute) Screen for colon cancer (Acute) Physical exam (Acute) Iron deficiency anemia due to chronic blood loss (Acute) Anemia (Acute) Complex ovarian cyst (Acute) Myoma (Acute) Menometrorrhagia (Acute) Well woman exam (Acute) Leucopenia (Chronic) Hearing loss (Acute) Lip lesion (Acute) Physical exam (Acute) Mild recurrent major depression (Acute) Class 2 obesity with body mass index (BMI) of 37.0 to 37.9 in adult (Acute) Aphthous ulcer (Acute) Atypical mole (Acute) Obese (Acute) GERD (gastroesophageal reflux disease) (Acute) Syncope (Acute) Low back pain (Acute) Vertigo (Acute) Hypovitaminosis D (Acute) B12 deficiency (Acute) Insomnia (Acute) Depression with anxiety (Acute) Past Medical History Medical History Hearing loss Lip lesion Physical exam Mild recurrent major depression Class 2 obesity with body mass index (BMI) of 37.0 to 37.9 in adult Aphthous ulcer Atypical mole Obese GERD (gastroesophageal reflux disease) Syncope Low back pain Vertigo Hypovitaminosis D B12 deficiency Insomnia Depression with anxiety Family History Family History Father CHF (congestive heart failure) Myocardial infarction Diabetes Mother Diabetes Hypertension Family/Other FH: uterine cancer Leukemia Family history of problems with anesthesia: No Surgical History Surgical History (Updated 10/12/23 @ 15:07 by Hawa Schneider RN) H/O colonoscopy History of tooth extraction History of laparoscopic cholecystectomy History of section History of tubal ligation History of Problems with Anesthesia: No Social History Social History Household Members: Family Housing: Apartment Are you a primary client care manager to a significant other at home: No Do you presently have visiting nurse or other home services: No Alcohol intake: current Alcohol intake frequency: a few times a month Alcohol type: beer and wine Patient Tobacco Use Status: Former Tobacco user Tobacco use type: Cigarette Cigarette Packs Per Day: 1 Years Smoked: 5 e-Cigarette/Vaping Use: Never Used Second Hand Smoke Exposure: No Advance Directives Date on File: 06/16/23 service: No Current occupational status: unemployed Cognitive needs: No Hearing needs: No Vision needs: No Meds Allergies Allergy/AdvReac Type Severity Reaction Status Date / Time No Known Allergies Allergy Verified 07/27/23 16:12 Home Medications Medication Instructions Recorded Confirmed Last Taken Type buspirone 15 mg tablet 15 mg PO TID 01/08/23 10/12/23 06/15/23 History escitalopram oxalate 20 mg tablet 20 mg PO DAILY 01/08/23 10/12/23 06/15/23 History zolpidem 10 mg tablet 5 mg PO BEDTIME PRN Insomnia 07/27/23 10/12/23 Unknown History Exam Height,Weight and Vital Signs: Height 5 ft 7 in Weight 99.337 kg Pertinent Lab Results Pertinent Lab Results: Laboratory Tests 06/16/23 06/17/23 09:22 09:30 WBC 8.9 Hgb 10.2 L Hct 31.7 L Plt Count 258 Sodium 139 Potassium 3.6 Chloride 109 H Carbon Dioxide 20 L BUN 8 L Creatinine 0.75 Assessment and Plan Assessment Anesthesia Assessment: Chart Reviewed Final Anesthetic Review Family History of Problems with Anesthesia: No History of Problems with Anesthesia: No
[2023-10-14 12:06] VITALS: BMI 33.7
[2023-10-14 12:09] VITALS: BP 112/83; PULSE 97; RESP 16; TEMP 36.8; O2SAT 98
--- NOTE | 2023-10-14 12:10 | HO.ANESPROP2 ---
[facility] Active Problems Active Problems: All Active Problems (Updated 06/26/23 @ 00:02 by Galina Ramirez) Hospital discharge follow-up (Acute) Colitis (Acute) Adhesive capsulitis of left shoulder (Acute) Left shoulder pain (Acute) Screen for colon cancer (Acute) Physical exam (Acute) Iron deficiency anemia due to chronic blood loss (Acute) Anemia (Acute) Complex ovarian cyst (Acute) Myoma (Acute) Menometrorrhagia (Acute) Well woman exam (Acute) Leucopenia (Chronic) Hearing loss (Acute) Lip lesion (Acute) Physical exam (Acute) Mild recurrent major depression (Acute) Class 2 obesity with body mass index (BMI) of 37.0 to 37.9 in adult (Acute) Aphthous ulcer (Acute) Atypical mole (Acute) Obese (Acute) GERD (gastroesophageal reflux disease) (Acute) Syncope (Acute) Low back pain (Acute) Vertigo (Acute) Hypovitaminosis D (Acute) B12 deficiency (Acute) Insomnia (Acute) Depression with anxiety (Acute) Past Medical History Medical History Hearing loss Lip lesion Physical exam Mild recurrent major depression Class 2 obesity with body mass index (BMI) of 37.0 to 37.9 in adult Aphthous ulcer Atypical mole Obese GERD (gastroesophageal reflux disease) Syncope Low back pain Vertigo Hypovitaminosis D B12 deficiency Insomnia Depression with anxiety Family History Family History Father CHF (congestive heart failure) Myocardial infarction Diabetes Mother Diabetes Hypertension Family/Other FH: uterine cancer Leukemia Family history of problems with anesthesia: No Surgical History Surgical History (Updated 10/12/23 @ 15:07 by Hawa Schneider RN) H/O colonoscopy History of tooth extraction History of laparoscopic cholecystectomy History of section History of tubal ligation History of Problems with Anesthesia: No Social History Social History Household Members: Family Housing: Apartment Are you a primary care director to a significant other at home: No Do you presently have visiting nurse or other home services: No Alcohol intake: current Alcohol intake frequency: a few times a month Alcohol type: beer and wine Patient Tobacco Use Status: Former Tobacco user Tobacco use type: Cigarette Cigarette Packs Per Day: 1 Years Smoked: 5 e-Cigarette/Vaping Use: Never Used Second Hand Smoke Exposure: No Advance Directives: No Advance Directives Information Provided: Yes Advance Directives Date on File: 06/16/23 service: No Current occupational status: unemployed Cognitive needs: No Hearing needs: No Vision needs: No Meds Allergies Allergy/AdvReac Type Severity Reaction Status Date / Time No Known Allergies Allergy Verified 07/27/23 16:12 Active Medications: Current Medications Lactated Ringer's (Lr) 1,000 mls @ 100 mls/hr IVCONT .Q10H [facility] Home Medications Medication Instructions Recorded Confirmed Last Taken Type buspirone 15 mg tablet 15 mg PO TID 01/08/23 10/12/23 06/15/23 History escitalopram oxalate 20 mg tablet 20 mg PO DAILY 01/08/23 10/12/23 06/15/23 History zolpidem 10 mg tablet 5 mg PO BEDTIME PRN Insomnia 07/27/23 10/12/23 Unknown History Exam Height,Weight and Vital Signs: Height 5 ft 7 in Weight 97.579 kg Last Vital Signs Temp 98.3 F 10/14/23 12:09 Pulse 97 10/14/23 12:09 Resp 16 10/14/23 12:09 BP 112/83 10/14/23 12:09 Pulse Ox 98 10/14/23 12:09 O2 Del Method Room Air 10/14/23 12:09 Airway Mallampati Class: II TM Dist: >3cm Neck ROM: Full Assessment and Plan Assessment Anesthesia Assessment: Anesthesia Plan Discussed and Chart Reviewed Final Anesthetic Review Family History of Problems with Anesthesia: No History of Problems with Anesthesia: No NPO: Yes ASA Class: II Final Preanesthetic Review: No Changes in Pt Med Stat, Meds/Allgs Chart Reviewed, Consent Obtained/Reviewed and Anes Risks/Benef Reviewed Patient Risk: Low Procedure Risk: Low Anesthetic Plan Anesthetic Plan: TIVA Disposition: Standard PACU
[2023-10-14] MEDS: Lactated Ringers 1,000 ML 100 ML IVCONT (12:39)
--- NOTE | 2023-10-14 13:06 | MHC.SHP ---
Pre-Procedural Eval Section A Date of Service: 10/14/23 Section B Chief Complaint: Vascular disorder of intestine, unspecified Details of Present Illness: see H&P no changes Relevant Family History (Specify if Yes): No Relevant Social History: None Present Medications: see Short Stay Collaborative assessment Medical History: No relevant PMH History of Previous Operations: No relevant previous surgery Allergies: Allergies Allergy/AdvReac Type Severity Reaction Status Date / Time No Known Allergies Allergy Verified 07/27/23 16:12 Review of Systems Sugical H&P ROS: Negative: Constitution, Cardiovascular, Respiratory, Neurological, Psychiatric, Hem-Onc, Allergic/Immunologic, Gastrointestinal, Genitourinary, Musculoskeletal, Integumentary, Endocrine and Eyes/Ears/Nose/Throat Exam Surgical H&P Exam: Normal: HEENT, Normal: Heart, Normal: Lungs, Normal: Extremities, Normal: Abdomen, Normal: Skin and Normal: Neurological Plan Diagnosis/Plan: Unchanged I have reviewed the history and physical and performed a pertinent physical examination on my patient. No changes have occurred unless specified. Time Spent With Patient Time: Total time managing care of this patient today ____ minutes.
[2023-10-14 13:39] VITALS: BP 98/58; PULSE 115; RESP 16; TEMP 36.1; O2SAT 97
[2023-10-14 13:54] VITALS: BP 115/76; PULSE 72; RESP 16; TEMP 36.1; O2SAT 100
--- NOTE | 2023-10-14 22:43 | OP_ITS ---
DATE OF SERVICE: 10/14/2023 SURGEON: Roman Montenegro MD INDICATIONS: Ischemic colitis. PREOPERATIVE DIAGNOSIS: POSTOPERATIVE DIAGNOSIS: PROCEDURE PERFORMED: Colonoscopy to the terminal ileum with biopsy. ESTIMATED BLOOD LOSS: COMPLICATIONS: ANESTHESIA: Monitored anesthesia care. ASSISTANTS: SPECIMENS: DESCRIPTION OF PROCEDURE: A history and physical was performed. The risks and benefits of the procedure were explained to the patient. Informed consent was obtained. The patient was placed in the left lateral decubitus position. A digital rectal exam was performed and was found to be normal. The Olympus pediatric video colonoscope was introduced into the rectum and advanced to the cecum. The cecum was identified by transillumination, palpation, and identification of ileocecal valve. Examination was performed. The scope was removed. She tolerated the procedure well and was returned to the recovery area in stable condition. FINDINGS: The terminal ileum was examined and appeared normal. The visualized colonic mucosa was normal. The quality of the prep was good. There was no evidence of ischemic colitis. Random biopsies were obtained from the sigmoid. Retroflexed examination was normal. IMPRESSION: Normal colonoscopy. RECOMMENDATION: 1. Follow up biopsy results. 2. Repeat colonoscopy is recommended in 10 years for average risk individuals. MD JOURDAN Villalba/AROLDO / [id number]
== END 2023-10-14 14:25 | disposition home or self-care (01) ==
PROVIDERS: PCP Internal Medicine; Visit Provider Internal Medicine Gastroenterology
PROC: 0DJD8ZZ Inspection of Lower Intestinal Tract, Via Natural or Artificial Opening Endoscopic (ICD-10-PCS; CPT 45378; principal; 2023-10-14 13:00)
DX: K52.9 Noninfective gastroenteritis and colitis, unspecified (principal); K21.9 Gastro-esophageal reflux disease without esophagitis; E55.9 Vitamin D deficiency, unspecified; E53.8 Deficiency of other specified B group vitamins; D64.9 Anemia, unspecified; E66.8 Other obesity; Z68.37 Body mass index [BMI] 37.0-37.9, adult; K12.0 Recurrent oral aphthae; F33.0 Major depressive disorder, recurrent, mild; Z79.899 Other long term (current) drug therapy; Z87.891 Personal history of nicotine dependence; Z90.49 Acquired absence of other specified parts of digestive tract
CPT/HCPCS: 45380; 88305; J2704

== ENCOUNTER 2023-12-15 10:03 | Outpatient (REF) | payer OTHER, SELFPAY ==
[2023-12-15 10:18] LABS: MANUAL DIFF FLAG NO
[2023-12-15 10:50] LABS: Basophils Percent Auto 0.4 % (0-2); Eosinophils Absolute Auto 0.2 X10*3/uL (0.0-0.4); Eosinophils Percent Auto 3.2 % (0-4); Hematocrit 36.9 % (37.0-47.0); Hemoglobin 12.1 g/dl (12.0-16.0); Imm Gran Abs Auto 0.01 X10*3/uL (0.00-0.03); Imm Gran Pct Auto 0.2 % (0.0-0.4); Lymphocytes Absolute Auto 1.7 X10*3/uL (1.2-4.9); Lymphocytes Percent Auto 32.6 % (20-40); Mean Corpuscular HGB Conc 32.8 g/dl (31.0-35.0); Mean Corpuscular Volume 97.6 fL (80.0-98.0); Mean Platelet Volume 10.4 fL (9.4-12.3); Monocytes Absolute Auto 0.5 X10*3/uL (0.1-1.2); Monocytes Percent Auto 8.6 % (2-11); Neutrophils Absolute Auto 2.9 x10*3/uL (2.0-8.3); Platelet Count 268 X10*3/uL (160-400); Red Blood Count 3.78 X10*6/uL (4.20-5.50); Red Cell Distribution Width 12.9 % (11.0-16.0); White Blood Count 5.3 X10*3/uL (4.8-10.8)
[2023-12-15 11:30] LABS: Alanine Aminotransferase 11 U/L (0-31); Albumin Level 3.6 g/dL (3.5-5.0); Alkaline Phosphatase 73 U/L (39-117); Anion Gap 10 (12-20); Aspartate Amino Transferase 15 U/L (5-31); Bilirubin Total 0.5 mg/dL (0.0-1.0); Blood Urea Nitrogen 11 mg/dL (9-16); Calcium 9.4 mg/dL (8.4-10.2); Carbon Dioxide 26 mmol/L (22-29); Chloride 108 mmol/L (96-108); Cholesterol 164 mg/dL (<200); Estimated Glomerular Filt Rate > 60; Glucose Fasting 104 mg/dL (60-99); HDL Cholesterol 43 mg/dL (>40); LDL Cholesterol Calculated 108 mg/dL (<100); Potassium 3.7 mmol/L (3.3-5.1); Sodium 140 mmol/L (135-145); Total Protein 7.5 g/dL (6.5-8.0); Triglycerides 68 mg/dL (<150)
[2023-12-15 11:47] LABS: Vitamin D 25-OH Total 16.8 ng/mL (>30)
[2023-12-15 11:54] LABS: Folate 5.4 ng/mL (> or = 4.0); Vitamin B12 604 pg/mL (200-900)
== END 2023-12-15 10:04 | disposition home or self-care (01) ==
LOC: HO.LAB 10:03
PROVIDERS: PCP Internal Medicine; Visit Provider Internal Medicine
DX: Z00.00 Encounter for general adult medical examination without abnormal findings (principal); E55.9 Vitamin D deficiency, unspecified; D64.9 Anemia, unspecified; D72.819 Decreased white blood cell count, unspecified; E78.5 Hyperlipidemia, unspecified; E53.8 Deficiency of other specified B group vitamins
CPT/HCPCS: 36415; 80053; 80061; 82306; 82607; 82746; 85025

== ENCOUNTER 2024-02-09 13:20 | Outpatient (AMB) | payer OTHER, SELFPAY ==
[2024-02-09 13:22] VITALS: BP 110/82; BMI 34.3
--- NOTE | 2024-02-09 13:22 | MHC.PC.OV ---
Vital Signs 02/09/24 13:22 Height 5 ft 7 in Weight 219 lb BMI 34.3 BP 110/82 Blood Pressure Location Lt brachial Position Sitting Intake Visit Reasons: depression Intake Note: Patient here for a follow up depression Tunnel Inspector Required: No Accompanied by: Self / Same As Patient Allergies No Known Allergies Allergy (Verified 02/09/24 13:39) Medication List - Last Reconciled 02/09/24 by Pili Rudd MD buspirone 15 mg PO TID ergocalciferol (vitamin D2) 50 mcg PO DAILY 90 days escitalopram oxalate 20 mg PO DAILY famotidine (Pepcid) 20 mg PO BEDTIME ibuprofen 800 mg PO Q8H PRN 30 days methylcellulose (laxative) (Citrucel) 500 mg PO DAILY 90 days omeprazole 20 mg PO DAILY 90 days ondansetron 4 mg PO Q8H PRN zolpidem 5 mg PO BEDTIME PRN Tobacco use date assessed: 02/09/24 Dental Screening Dental Screen Date: 02/09/24 Did you have a dental visit in the last 12 months?: Yes Did you have a dental problem in the last 6 months where you did not have access to dental care?: No Was dental information given to patient?: Patient has dentist HPI HPI Comments History of Present Illness Details This is a 48-year-old female with mild recurrent major depression, generalized anxiety disorder, GERD and constipation that comes today for follow-up on her conditions. Depression and anxiety has been stable with escitalopram and she denies any suicidal thoughts. She follows with psychiatry. PHQ-9 does not correlate her clinically. GERD stable with PPIs. Constipation stable with Citrucel as needed. Denies any chest pain or shortness of breath. [facility] Medical History (Updated 02/09/24 @ 13:57 by Pili Rudd MD) Hearing loss Lip lesion Physical exam Mild recurrent major depression Class 2 obesity with body mass index (BMI) of 37.0 to 37.9 in adult Aphthous ulcer Atypical mole Obese GERD (gastroesophageal reflux disease) Syncope Low back pain Vertigo Hypovitaminosis D B12 deficiency Insomnia Depression with anxiety Surgical History H/O colonoscopy History of tooth extraction History of laparoscopic cholecystectomy History of section History of tubal ligation Family History Father CHF (congestive heart failure) Myocardial infarction Diabetes Mother Diabetes Hypertension Family/Other FH: uterine cancer Leukemia Social History Household Members: Family Housing: Apartment Are you a primary clinical care manager to a significant other at home: No Do you presently have visiting nurse or other home services: No Alcohol intake: current Alcohol intake frequency: a few times a month Alcohol type: beer and wine Patient Tobacco Use Status: Former Tobacco user Tobacco use type: Cigarette Cigarette Packs Per Day: 1 Years Smoked: 5 e-Cigarette/Vaping Use: Never Used Second Hand Smoke Exposure: No Advance Directives Date on File: 06/16/23 service: No Current occupational status: unemployed Cognitive needs: No Hearing needs: No Vision needs: No Female Reproductive History Menstrual Age of Menarche: 9 Questionnaire PHQ-9 Over the last 2 weeks, how often have you been bothered by any of the following problems? 1. Little interest or pleasure in doing things: more than half the days 2. Feeling down, depressed, or hopeless: more than half the days 3. Trouble falling or staying asleep, or sleeping too much: nearly every day 4. Feeling tired or having little energy: nearly every day 5. Poor appetite or overeating: nearly every day 6. Feeling bad about yourself - or that you are a failure or have let yourself or your family down: more than half the days 7. Trouble concentrating on things, such as reading the newspaper or watching television: several days 8. Moving or speaking so slowly that other people could have noticed. Or the opposite - being so fidgety or restless that you have been moving around a lot more than usual: nearly every day 9. Thoughts that you would be better off or of hurting yourself in some way: not at all Total score: 19 Depression Screening Interpretation: Positive (no suicidal thoughts) Depression Screening Follow-up: Existing condition and In treatment Depression Screening Done: Yes 02973 - PHQ-9 Billing: Yes Source: Developed by Drs. Darren Bui, Gisele Ge, Edvin French and colleagues, with an educational primo from [employer]. Thrive Questionnaire Date Thrive assessed: 02/09/24 I am a: Patient What is your living situation today?: I have a steady place to live Within the past 12 months, did the food you bought not last and you didn't have the money to get more?: Never true Within the past 12 months, did you worry whether your food would run out before you got money to buy more?: Never true Do you have trouble paying for medicines?: No Do you have trouble getting transportation to medical appointments?: No Do you have trouble paying your heating and electricity bill?: No Do you have trouble taking care of your child, family member or friend?: No Do you have trouble with day-to-day activities such as bathing, preparing meals, shopping, managing finances, etc.?: No Are you currently unemployed and looking for a job?: No Are you interested in more education?: No Please select the resources that you would like help with: None Currently or been in a relationship where the following occur: no concerns reported THRIVE Score: 0 AUDIT C Alcohol Use Questionnaire (AUDIT-C) 1. How often do you have a drink containing alcohol?: Monthly or less 2. How many drinks containing alcohol do you have on a typical day when you are drinking?: 1 or 2 3. How often do you have six or more drinks on one occasion?: Never Total Score: 1 Score Reviewed/Action Taken: No BENTON-7 AMB Questionnaire BENTON-7 Date BENTON - 7 assessed: 02/09/24 Feeling nervous, anxious, or on edge: 3 = Nearly every day Not being able to stop or control worryin = Not at all Worrying too much about different things: 3 = Nearly every day Trouble relaxin = Several days Being so restless that it is hard to sit still: 2 = More than half the days Becoming easily annoyed or irritable: 1 = Several days Feeling afraid as if something awful might happen: 3 = Nearly every day Total BENTON-7 score (0-4 normal; 5-9 mild; 10-14 moderate; 15-21 severe): 13 Source: Developed by Drs. Darren Bui, Gisele Ge, Edvin French and colleagues, with an educational primo from [employer]. BENTON-7 Assessment Billing BENTON-7 Assessment Tool: BENTON-7 Assessment 31757 Review of Systems Const All systems reviewed & are unremarkable except as noted in HPI and below Eyes Reports no additional complaints, Denies change in vision and Denies other visual disturbances Card Denies chest pain at rest, Denies chest pain with activity, Denies edema, Denies irregular heart rhythm, Denies claudication, Denies dyspnea, Denies dyspnea on exertion, Denies orthopnea, Denies paroxysmal nocturnal dyspnea and Denies slow heart rate Resp Denies cough, Denies dyspnea and Denies dyspnea on exertion GI Denies abdominal pain, Denies change in bowel habits, Denies excessive flatus, Denies nausea and Denies vomiting Denies urinary incontinence, Denies urinary hesitancy and Denies urinary urgency Physical exam (Primary Care) Vital Signs: Last Vital Signs BP 110/82 02/09/24 13:22 BMI result Body Mass Index 34.3 Tobacco/Smoking Status: Tobacco use Status Tobacco use date assessed 02/09/24 02/09/24 13:27 Patient Tobacco Use Status Former Tobacco user 02/09/24 13:27 Tobacco use type Cigarette 02/09/24 13:27 e-Cigarette/Vaping Use Never Used 02/09/24 13:27 PHQ-9: PHQ-9 Score PHQ-9: Total score 19 02/09/24 13:27 Depression Screening Interpretation: Positive (no suicidal thoughts) Depression Screening Follow-up: Existing condition and In treatment Thrive Assessment: Date of Thrive Assessment Date Thrive assessed 02/09/24 02/09/24 13:27 Currently or been in a relationship where the following occur: no concerns reported Neck Neck: Yes normal visual inspection and Yes supple Resp Effort & Inspection: normal respiratory effort Auscultation: clear to auscultation bilaterally Cardio Jugular venous distension: no JVD Rate: regular rate Rhythm: regular rhythm Heart sounds: S1 normal heart sound present and S2 normal heart sound present Extrem General: Yes full ROM Psych Appearance: grossly normal Assessment and Plan Assessment & Plan (1) Mild recurrent major depression: Code(s): F33.0 - Major depressive disorder, recurrent, mild Plan: Continue escitalopram at bedtime. Follow-up with psychiatry. (2) GERD (gastroesophageal reflux disease): Code(s): K21.9 - Gastro-esophageal reflux disease without esophagitis Qualifiers: Esophagitis presence: esophagitis presence not specified Qualified Code(s): K21.9 - Gastro-esophageal reflux disease without esophagitis Plan: Continue PPIs. (3) BENTON (generalized anxiety disorder): Code(s): F41.1 - Generalized anxiety disorder Plan: Continue escitalopram and buspirone. Follow-up with psychiatry. (4) Chronic idiopathic constipation: Code(s): K59.04 - Chronic idiopathic constipation Plan: Continue Citrucel as needed. Orders: Orders T Spot TB Today Z11.1 - Encounter for screening for respiratory tuberculosis Medications: New cetirizine (Allergy Relief (cetirizine)) 10 mg PO DAILY 90 days PRN 90 tabs 1RF allergy symptoms olopatadine 0.2% (Pataday Once Daily Relief) 1 drp ophthalmic (eye) DAILY 2 weeks PRN 2.5 mL 0RF itching Refilled omeprazole 20 mg PO DAILY 90 days 90 caps 1RF Coding Level of Care Code Est Pt Level 4 (72681) Diagnoses Mild recurrent major depression F33.0 Gastroesophageal reflux disease, unspecified whether esophagitis present K21.9 Esophagitis presence: esophagitis presence not specified BENTON (generalized anxiety disorder) F41.1 Chronic idiopathic constipation K59.04 Additional Codes BENTON-7 Assessment Billing - BENTON-7 Assessment Tool: BENTON-7 Assessment 06891 ([id number]) Time Spent (min) 23
== END 2024-02-09 13:58 | disposition home or self-care (01) ==
PROVIDERS: PCP Internal Medicine; Visit Provider Internal Medicine
DX: F33.0 Major depressive disorder, recurrent, mild (principal); K21.9 Gastro-esophageal reflux disease without esophagitis; K59.04 Chronic idiopathic constipation; F41.1 Generalized anxiety disorder
CPT/HCPCS: 99214

== ENCOUNTER 2024-02-09 14:04 | Outpatient (REF) | payer OTHER, SELFPAY ==
[2024-02-12 08:08] LABS: TS Negative Control Passed; TS Panel A 0; TS Panel B 0; TS Positive Control Passed; TSpotTB Negative (Negative)
== END 2024-02-09 14:05 | disposition home or self-care (01) ==
LOC: HO.LAB 14:04
PROVIDERS: PCP Internal Medicine; Visit Provider Internal Medicine
DX: Z11.1 Encounter for screening for respiratory tuberculosis (principal)
CPT/HCPCS: 36415; 86481

== ENCOUNTER 2024-07-28 11:06 | Emergency (ER) | payer OTHER, SELFPAY ==
--- NOTE | ~2024-07-28 | CT_ITS ---
EXAMINATION: CT CERVICAL SPINE WITHOUT CONTRAST CLINICAL INFORMATION: Status post fall. COMPARISON: None available. TECHNIQUE: Contiguous axial images through the cervical spine from skull base to thoracic inlet using 3 mm collimation with bone and soft tissue algorithm. Sagittal and coronal reformatted images acquired. This CT examination was performed using dose optimization techniques as appropriate, variously including the following: *Automated exposure control *Adjustment of mA and/or kV according to patient size (this includes techniques or standardized protocols for targeted exams where dose is matched to indication/reason for exam; i.e. extremities or head) *Use of iterative reconstruction technique DLP: 456 mGy-cm FINDINGS: Craniocervical junction is intact. C1 is intact. C2 is intact. C3 is intact. C4 is intact. C5 is intact. C6 is intact. C7 is intact. Marginal osteophyte formation and decreased intervertebral disc height at C5-6. The alignment is normal. No prevertebral compartment hematoma in Tympanic cavities and mastoid cells are aerated. Prominent sella turcica, osseous component. CT/CT cervical spine wo IV con IMPRESSION: No acute fracture or trauma-related listhesis. Spondylosis, C5-6. Fleischner guidelines were followed. Electronically signed by: Jurgen Marlow MD 07/28/2024 12:[address] [facility]
--- NOTE | ~2024-07-28 | CT_ITS ---
EXAMINATION: CT HEAD WITHOUT CONTRAST CLINICAL INFORMATION: fall w/ frontal head strike COMPARISON: CT dated October 18, 2020 TECHNIQUE: Contiguous axial imaging was performed from the skull base to vertex without intravenous administration of contrast. This CT examination was performed using dose optimization techniques as appropriate, variously including the following: *Automated exposure control *Adjustment of mA and/or kV according to patient size (this includes techniques or standardized protocols for targeted exams where dose is matched to indication/reason for exam; i.e. extremities or head) *Use of iterative reconstruction technique DLP: 671 mGy-cm FINDINGS: Bony calvarium is intact. Skull base is intact. Subacute tennis emphysema/tiny air bubble gas left frontal soft tissue scalp image #14 series 6. No acute intracranial hemorrhage, mass effect, midline shift, hydrocephalus or herniation. Zaldivar-white matter differentiation is normal. Posterior cranial fossa contents demonstrated no acute intracranial hemorrhage or mass effect. Sellar/suprasellar region demonstrated CSF prominence of the sella turcica. Craniocervical junction is intact. Asymmetric slightly larger right lateral ventricle, congenital variant. Fluid density in the left mastoid air cell deep. Tympanic cavities are aerated. Mucosal thickening, left ethmoid air cells and sphenoid sinuses. Mucosal thickening right maxillary sinus. No air-fluid levels in the included paranasal sinuses. CT/CT head/brain wo IV con IMPRESSION: No acute fracture, bony calvarium. No acute intracranial hemorrhage. Probable skin laceration left frontal soft tissue scalp. Minimal effusion, left mastoid tip. Paranasal sinus disease likely chronic. Electronically signed by: Jurgen Marlow MD 07/28/2024 12:16 PM [facility]
--- NOTE | ~2024-07-28 | XR_ITS ---
EXAMINATION: XR LUMBOSACRAL SPINE CLINICAL INFORMATION: Acute on chronic low back pain, status post fall COMPARISON: October 18, 2020 TECHNIQUE: Three views of the lumbosacral spine. FINDINGS: The vertebral bodies and posterior elements are normal. The disc spaces are preserved and the vertebral alignment is normal. The paraspinal soft tissues are normal. XR/XR lumbar spine 2-3V IMPRESSION: Unremarkable examination. Electronically signed by: Bekah Tan MD 07/28/2024 02:35 PM [facility]
[2024-07-28 11:18] VITALS: BP 130/70; BP 132/80; PULSE 79; PULSE 88; RESP 18; TEMP 36.8; O2SAT 98; O2SAT 99; BMI 36.0
--- NOTE | 2024-07-28 11:24 | ED.FALL ---
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 Patient states that after leaving the grocery store, she was attempting to step up into her Jeep when she stepped into a pothole causing her to fall forward and strike her head against the door hinges. Denies any preceding symptoms prior to the fall. Reports falling to the ground however did not hit her head a second time. She denies LOC. No anticoagulation. Reports laceration to the left side of her forehead that was evaluated and dressed by EMS on arrival. Patient was placed in cervical collar however is declining any neck pain at present. Reports 5/10 URIARTE at present. Admits to feeling slightly dizzy and nauseous after her head strike which has since resolved. Also reports chronic low back pain which was exacerbated during the fall. Denies sustaining any other injuries during the fall. Denies dizziness, vision changes, confusion, lethargy, vomiting, neck pain, numbness/tingling/weakness down the extremities. Her tetanus is not up-to-date. Related Data Home Medications ?Medication ?Instructions ?Recorded ?Confirmed buspirone 15 mg tablet 15 mg PO TID 01/08/23 02/09/24 escitalopram oxalate 20 mg tablet 20 mg PO DAILY 01/08/23 02/09/24 zolpidem 10 mg tablet 5 mg PO BEDTIME PRN Insomnia 07/27/23 02/09/24 Previous Rx's ?Medication ?Instructions ?Recorded ergocalciferol (vitamin D2) 50 mcg 50 mcg PO DAILY 90 days #90 tabs 07/10/22 (2,000 unit) tablet famotidine 20 mg tablet (Pepcid) 20 mg PO BEDTIME #90 tabs 02/11/23 ibuprofen 800 mg tablet 800 mg PO Q8H PRN pain 30 days #90 03/08/23 tabs ondansetron 4 mg disintegrating 4 mg PO Q8H PRN nausea and 06/25/23 tablet vomiting #15 tabs methylcellulose (laxative) 500 mg 500 mg PO DAILY 90 days #90 tabs 07/27/23 tablet (Citrucel) cetirizine 10 mg tablet (Allergy 10 mg PO DAILY PRN allergy 02/09/24 Relief (cetirizine)) symptoms 90 days #90 tabs olopatadine 0.2 % eye drops 1 drp ophthalmic (eye) DAILY PRN 02/09/24 (Pataday Once Daily Relief) itching 2 weeks #2.5 mL omeprazole 20 mg capsule,delayed 20 mg PO DAILY 90 days #90 caps 02/09/24 release lidocaine 5 % topical patch 1 patch topical DAILY #15 ea 07/28/24 (Lidoderm) Allergies Allergy/AdvReac Type Severity Reaction Status Date / Time No Known Allergies Allergy Verified 07/28/24 11:21 Review of Systems Review of Systems: Constitutional: No fever, chills, fatigue, night sweats, weight changes ENT/Mouth: No ear pain, hearing loss, nasal congestion, sinus pain, rhinorrhea, sore throat Eyes: No eye pain, swelling, redness, vision changes, discharge Cardio: No chest pain, palpitations, MAK, orthopnea, peripheral edema Pulm: No SOB, cough, sputum, wheezing, dyspnea, hemoptysis GI: No nausea, vomiting, hematemesis, abdominal pain, diarrhea, constipation, hematochezia, melena : No irregular bleeding, dysuria, frequency, urgency, hesitancy, hematuria, flank pain, urinary flow changes, urinary incontinence or retention MSK: No neck pain, joint pain, myalgias, +low back pain Skin: No lesions, rashes, +scalp laceration Neuro: No weakness, numbness, paresthesias, LOC, dizziness, +headache Psych: No anxiety/panic, depression, SI/HI, AH/VH All other systems reviewed and are negative. [facility] Past Medical History Attestation statement: The following information was validated with the patient. Source: old records reviewed and nursing notes reviewed Medical History Hearing loss Lip lesion Physical exam Mild recurrent major depression Class 2 obesity with body mass index (BMI) of 37.0 to 37.9 in adult Aphthous ulcer Atypical mole Obese GERD (gastroesophageal reflux disease) Syncope Low back pain Vertigo Hypovitaminosis D B12 deficiency Insomnia Depression with anxiety Surgical History H/O colonoscopy History of tooth extraction History of laparoscopic cholecystectomy History of section History of tubal ligation Family History Family History Father CHF (congestive heart failure) Myocardial infarction Diabetes Mother Diabetes Hypertension Family/Other FH: uterine cancer Leukemia Social History Social History Household Members: Family Housing: Apartment Are you a primary student career development specialist to a significant other at home: No Do you presently have visiting nurse or other home services: No Alcohol intake: current Alcohol intake frequency: a few times a month Alcohol type: beer and wine Patient Tobacco Use Status: Former Tobacco user Tobacco use type: Cigarette Cigarette Packs Per Day: 1 Years Smoked: 5 Smoked in Last 30 Days: No e-Cigarette/Vaping Use: Never Used Second Hand Smoke Exposure: No Use of substances other than those prescribed or required for medical reasons: No Advance Directives: Yes Advance Directives on File: Yes Advance Directives Date on File: 06/16/23 Patient : No service: No Current occupational status: unemployed Cognitive needs: No Hearing needs: No Vision needs: No Physical Exam Vital Signs: Vital Signs: Last Vital Signs Temp 98 F 07/28/24 13:32 Pulse 72 07/28/24 13:32 Resp 15 07/28/24 13:32 BP 126/78 07/28/24 13:32 Pulse Ox 100 07/28/24 13:32 O2 Del Method Room Air 07/28/24 13:32 BMI result Body Mass Index 36.0 Vital signs stable General: Well appearing, in no acute distress. Skin: Warm, dry, intact. No rashes or lesions. Head: + 5 cm linear laceration noted to left forehead along hairline. Bleeding controlled. No involvement of deeper structures. No palpable hematoma or skull fracture. No donald sign. No raccoon eyes. EOMs intact w/o entrapment or pain. Neck: No midline cervical spinous tenderness or step-off deformity. Full ROM intact. Cardiac: Chest wall symmetric. RRR Lungs: Normal respiratory effort without accessory muscle use. CTA bilaterally. Abdomen: Soft, non-tender, non-distended. No rebound tenderness or guarding. Positive BS x4. Back: No midline spinous or paraspinal tenderness. No step off deformity. Ext: Upper and lower extremities atraumatic, without tenderness, deformity, swelling or erythema. Full ROM throughout. Neuro: AOx3. Normal speech. Strength 5/5 intact throughout. No saddle anesthesia. Sensation intact to light touch. NV intact distally. Ambulating with steady gait. Psych: Appropriate mood and affect. Responds appropriately to questions. Course Course Course Narrative: 1451 -- Seven sutures placed to left scalp laceration. Patient tolerated well. CT head without bleed or skull fracture. CT cervical spine without subluxation. xr lumbar spine without fracture. reports improvement with lido patch. Patient has remained stable throughout ED visit today. Discussed worrisome signs and symptoms and when to return to the ED. All questions answered at this time. Patient is agreeable with disposition and stable for discharge. Medications Administered Discontinued Medications Generic Name Dose Route Start Last Admin Trade Name Freq PRN Reason Stop Dose Admin Diphtheria/Tetanus/Acell Pertussis 0.5 ml 07/28/24 11:37 07/28/24 12:04 Diphth,Pertus(Acell),Tet Adult 0.5 Ml Syringe IM 07/28/24 11:38 0.5 ml .ONCE ONE Administration Lidocaine 1 patch 07/28/24 13:22 07/28/24 13:26 Lidocaine 4 % Patch Adh..Patch TRANSDERMA 07/28/24 13:23 1 patch ONCE ONE Administration Protocol Lidocaine HCl 5 ml 07/28/24 11:37 07/28/24 12:03 Lidocaine Hcl 1 % Mpf 5 Ml Vial INFILTRATI 07/28/24 11:38 5 ml ONCE ONE Administration Lidocaine HCl 5 ml 07/28/24 11:43 07/28/24 12:03 Lidocaine Hcl 1 % Mpf 5 Ml Vial INFILTRATI 07/28/24 11:44 5 ml ONCE ONE Administration Oxycodone HCl 5 mg 07/28/24 11:37 07/28/24 12:03 Oxycodone Hcl Immed Release 5 Mg Tablet PO 07/28/24 11:38 5 mg ONCE ONE Administration Procedures Laceration Laceration 1: Site: scalp Side (If applicable): left Size (cm): 6 Description: linear Depth: simple, single layer Local Anesthetic: lidocaine 1% Amount of anesthesia used (mL): 10 Pre-repair: wound explored, irrigated extensively and deep structures intact Skin layer closed with: nylon Size (cm): 5-0 Number of sutures: 7 Technique: simple, interrupted Medical Decision Making Medical Decision Making [facility] Narrative: 49 year old [place] speaking female with pmhx significant for vertigo, GERD, anxiety, depression, T2DM presents to the ED today via EMS for 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 Vital signs stable. She is nontoxic-appearing and in no acute distress. 5 cm linear laceration noted to left forehead along hairline. Bleeding controlled. No involvement of deeper structures. No palpable hematoma or skull fracture. No donald sign. No raccoon eyes. PERRLA. Neurologically intact. There is no midline cervical spinous tenderness or step-off deformity. NV intact distally. Differential diagnosis includes laceration, skull fracture, hematoma, ICH, CVA/TIA, MSK sprain/strain, fracture, arthritis. Unlikely cauda equina, Guillain-[place]a, epidural abscess, cord compression. Plan for imaging, pain control, laceration repair, tdap booster, re-evaluation. Differential Diagnosis Differential Diagnoses: The differential diagnosis associated with the presentation includes as above. Admission/Observation Not indicated. Lab Data [facility] Lab Attestation statement: I reviewed the patient's lab results. as above. Labs: Lab Results 07/28/24 Range/Units 11:20 POC Glucose 96 (60-115) mg/dL Independent Interpretation I performed an independent interpretation of an: Plain X-Ray and CT Scan Interpretation: CT head/brain without bleed or skull fracture CT cervical spine without fracture XR lumbar spine without fracture Radiology Impression Discussion of test interpretation with radiology: I have reviewed the radiologist's reading. Radiologist Impression: EXAMINATION: CT HEAD WITHOUT CONTRAST CLINICAL INFORMATION: fall w/ frontal head strike COMPARISON: CT dated October 18, 2020 TECHNIQUE: Contiguous axial imaging was performed from the skull base to vertex without intravenous administration of contrast. This CT examination was performed using dose optimization techniques as appropriate, variously including the following: *Automated exposure control *Adjustment of mA and/or kV according to patient size (this includes techniques or standardized protocols for targeted exams where dose is matched to indication/reason for exam; i.e. extremities or head) *Use of iterative reconstruction technique DLP: 671 mGy-cm FINDINGS: Bony calvarium is intact. Skull base is intact. Subacute tennis emphysema/tiny air bubble gas left frontal soft tissue scalp image #14 series 6. No acute intracranial hemorrhage, mass effect, midline shift, hydrocephalus or herniation. Zalidvar-white matter differentiation is normal. Posterior cranial fossa contents demonstrated no acute intracranial hemorrhage or mass effect. Sellar/suprasellar region demonstrated CSF prominence of the sella turcica. Craniocervical junction is intact. Asymmetric slightly larger right lateral ventricle, congenital variant. Fluid density in the left mastoid air cell deep. Tympanic cavities are aerated. Mucosal thickening, left ethmoid air cells and sphenoid sinuses. Mucosal thickening right maxillary sinus. No air-fluid levels in the included paranasal sinuses. CT/CT head/brain wo IV con IMPRESSION: No acute fracture, bony calvarium. No acute intracranial hemorrhage. Probable skin laceration left frontal soft tissue scalp. Minimal effusion, left mastoid tip. Paranasal sinus disease likely chronic. Electronically signed by: Jurgen Marlow MD 07/28/2024 12:16 PM [facility] EXAMINATION: XR LUMBOSACRAL SPINE CLINICAL INFORMATION: Acute on chronic low back pain, status post fall COMPARISON: October 18, 2020 TECHNIQUE: Three views of the lumbosacral spine. FINDINGS: The vertebral bodies and posterior elements are normal. The disc spaces are preserved and the vertebral alignment is normal. The paraspinal soft tissues are normal. XR/XR lumbar spine 2-3V IMPRESSION: Unremarkable examination. Electronically signed by: Bekah Tan MD 07/28/2024 02:35 PM [facility] Independent Historian Clinical information obtained from an independent historian. History obtained from or confirmed by: Spouse () and EMS External Record Review External record reviewed: Inpatient record, Office record, Outpatient record, Prior outpatient labs, Prior outpatient radiology and Primary care record Prescription Management I considered prescription management with: Pain Medication (lido patch) Chronic Conditions Patient?s care impacted by: Diabetes Social Determinants Patient?s care significantly limited by Social Determinants of Health including: Other Social Determinant of Health Critical Care Time Critical Care Time Critical Care Time: No Discharge Plan Discharge Clinical Impression: Fall against object Laceration of scalp Qualifiers: Encounter type: initial encounter Qualified Code(s): S01.01XA - Laceration without foreign body of scalp, initial encounter Patient Disposition: Home, Self-Care Instructions: Laceration (ED) Additional Instructions: You have been evaluated in the Emergency Department today for a laceration to your scalp. The CT scan of your head does not demonstrate bleed or skull fracture. Your laceration was repaired in the ED with sutures.? Please keep the area surrounding the laceration clean and dry. Please keep the area out of the sunlight for the next 6 months to help prevent scarring.? If you develop redness or swelling at the site of your laceration please come back to the ER for a wound check. The x-ray of your back as normal. Lidocaine patches have been sent to your pharmacy. I recommend you take 600mg ibuprofen every 6 hours or tylenol 650mg every 6 hours as needed for pain. If needed, you can alternate these medications so that you take one medication every 3 hours. For example, at noon take ibuprofen, then at 3pm take tylenol, then at 6pm take ibuprofen. Please follow up with your primary care physician in 7-10 days for suture removal. You can also return to the ER or another urgent care facility for this service. Return to the Emergency Department if you experience discharge from your laceration, redness around your laceration, warmth around your laceration, fever, vomiting, numbness, tingling, or any other concerning symptoms. In the case of an emergency call 911. Prescriptions: New lidocaine [Lidoderm] 5 % adhesive patch,medicated 1 patch topical DAILY Qty: 15 0RF Rx Instructions: leave on most painful area for up to 12 hrs No Action ergocalciferol (vitamin D2) 50 mcg (2,000 unit) tablet 50 mcg PO DAILY 90 Days Qty: 90 1RF famotidine [Pepcid] 20 mg tablet 20 mg PO BEDTIME Qty: 90 3RF ibuprofen 800 mg tablet 800 mg PO Q8H PRN (Reason: pain) 30 Days Qty: 90 1RF Citrucel 500 mg tablet 500 mg PO DAILY 90 Days Qty: 90 1RF cetirizine [Allergy Relief (cetirizine)] 10 mg tablet 10 mg PO DAILY PRN (Reason: allergy symptoms) 90 Days Qty: 90 1RF omeprazole 20 mg capsule,delayed release(DR/EC) 20 mg PO DAILY 90 Days Qty: 90 1RF olopatadine [Pataday Once Daily Relief] 0.2 % drops 1 drp ophthalmic (eye) DAILY PRN (Reason: itching) 14 Days Qty: 2.5 0RF escitalopram oxalate 20 mg tablet 20 mg PO DAILY buspirone 15 mg tablet 15 mg PO TID zolpidem 10 mg tablet 5 mg PO BEDTIME PRN (Reason: Insomnia) ondansetron 4 mg tablet,disintegrating 4 mg PO Q8H PRN (Reason: nausea and vomiting) Qty: 15 0RF Referrals: Pili Connell MD [Primary Care Provider] - Stand Alone Forms: Work/School Release Print Language: Gibraltarian
[2024-07-28 11:26] LABS: Glucose, Whole Blood 96 mg/dL (60-115)
[2024-07-28] MEDS: oxyCODONE HCl Immed Release 5 MG TABLET PO (12:03)
[2024-07-28] MEDS: Lidocaine HCl 1 % MPF 5 ML VIAL INFILTRATI ×2 (12:03)
[2024-07-28] MEDS: Diphth,Pertus(ACell),Tet Adult 0.5 ML SYRINGE IM (12:04)
[2024-07-28 12:17] VITALS: BP 123/92; PULSE 72; RESP 15; TEMP 36.4; O2SAT 100
[2024-07-28] MEDS: Lidocaine 4 % Patch ADH..PATCH 1 PATCH TRANSDERMA (13:26)
[2024-07-28 13:32] VITALS: BP 126/78; PULSE 72; RESP 15; TEMP 36.6; O2SAT 100
[2024-07-28 14:58] VITALS: BP 126/78; PULSE 72; RESP 15; TEMP 36.6; O2SAT 100
== END 2024-07-28 14:59 | disposition home or self-care (01) ==
PROVIDERS: Emergency Provider Emergency Medicine; PCP Internal Medicine
DX: S01.01XA Laceration without foreign body of scalp, initial encounter (principal); R51.9 Headache, unspecified; M54.2 Cervicalgia; W01.10XA Fall on same level from slipping, tripping and stumbling with subsequent striking against unspecified object, initial encounter; Y93.89 Activity, other specified; Y92.810 Car as the place of occurrence of the external cause; Y99.8 Other external cause status; Z23 Encounter for immunization
CPT/HCPCS: 12032; 70450; 72100; 72125; 82947; 90471; 90715; 99284; J2003

== ENCOUNTER → 2024-07-28 11:37 | Outpatient (BNV) | payer OTHER, SELFPAY | PROVIDERS: Emergency Provider Emergency Medicine; PCP Internal Medicine; Visit Provider Radiology Diagnostic Radiology | DX: S01.01XA Laceration without foreign body of scalp, initial encounter (principal) | CPT/HCPCS: 70450; 72125 ==

== ENCOUNTER 2024-08-09 14:58 | Outpatient (AMB) | payer OTHER, SELFPAY ==
--- NOTE | 2024-08-09 15:16 | AM.OFFWIN_ITS ---
Intake Vital Signs 08/09/24 15:17 Weight 227 lb BP 110/72 Blood Pressure Location Lt brachial Position Sitting Pulse 103 H Pulse Source Pulse Oximeter Pulse Oximetry (%) 98 Oxygen Delivery Method Room Air Intake Visit Reasons: EP-stiches removal Intake Note: Patient here for stitch removal on left side of forehead area, pts states she had 7 stitches placed. Patient Tobacco Use Status: Former Tobacco user Allergies No Known Allergies Allergy (Verified 08/09/24 15:17) Do you need a note to return to daycare/school/sports/work: No HPI HPI Comments History of Present Illness Details Patient is a 49-year-old female who had a head strike on July 28 and received 7 stitches placed in the emergency department. She states she is here today for removal of the sutures. She denies any headaches, nausea, vomiting, dizziness, any drainage from the wound or pain from the wound. She was not given antibiotics in the emergency department therefore has not been taking any. [facility] Medical History Hearing loss Lip lesion Physical exam Mild recurrent major depression Class 2 obesity with body mass index (BMI) of 37.0 to 37.9 in adult Aphthous ulcer Atypical mole Obese GERD (gastroesophageal reflux disease) Syncope Low back pain Vertigo Hypovitaminosis D B12 deficiency Insomnia Depression with anxiety Surgical History H/O colonoscopy History of tooth extraction History of laparoscopic cholecystectomy History of section History of tubal ligation Family History Father CHF (congestive heart failure) Myocardial infarction Diabetes Mother Diabetes Hypertension Family/Other FH: uterine cancer Leukemia Social History Household Members: Family Housing: Apartment Are you a primary client care coordinator to a significant other at home: No Do you presently have visiting nurse or other home services: No Alcohol intake: current Alcohol intake frequency: a few times a month Alcohol type: beer and wine Patient Tobacco Use Status: Former Tobacco user Tobacco use type: Cigarette Cigarette Packs Per Day: 1 Years Smoked: 5 e-Cigarette/Vaping Use: Never Used Second Hand Smoke Exposure: No Advance Directives Date on File: 06/16/23 service: No Current occupational status: unemployed Cognitive needs: No Hearing needs: No Vision needs: No Female Reproductive History Menstrual Age of Menarche: 9 Review of Systems Const All systems reviewed & are unremarkable except as noted in HPI and below Physical Exam Vital Signs: Last Vital Signs Pulse 103 H 08/09/24 15:17 BP 110/72 08/09/24 15:17 Pulse Ox 98 08/09/24 15:17 Oxygen Delivery Method Room Air 08/09/24 15:17 Const General: cooperative, healthy appearing, comfortable, no acute distress and well developed Orientation/consciousness: patient oriented x3 Limitations: no limitations HEENT Head: Yes normal to inspection Neck Neck: Yes normal visual inspection and Yes supple Skin Other: Left forehead has well healing wound with small scabs and [address], no signs of infection noted, no warmth, nothing oozing from the wound. Neuro General: patient oriented x3 Assessment & Plan Assessment & Plan (1) Visit for suture removal: Code(s): Z48.02 - Encounter for removal of sutures Plan: Seven sutures removed, no signs of infection on a well-healing wound. Cleaned with sterile saline, recommended patient use Aquaphor healing ointment once daily before bed, recommended she gently massage the area with her normal shampoo but not scrub the area for another couple of weeks. Plan see above Coding Level of Care Code Est Pt Level 3 (52769) Diagnoses Visit for suture removal Z48.02
[2024-08-09 15:17] VITALS: BP 110/72; PULSE 103; O2SAT 98
== END 2024-08-09 15:44 | disposition home or self-care (01) ==
PROVIDERS: PCP Internal Medicine; Visit Provider Physician Assistant
DX: Z48.02 Encounter for removal of sutures (principal)

== ENCOUNTER → 2024-08-09 14:58 | Outpatient (BNVA) | payer OTHER, SELFPAY | PROVIDERS: PCP Internal Medicine; Visit Provider Physician Assistant | DX: Z48.02 Encounter for removal of sutures (principal) | CPT/HCPCS: 99212 ==

== ENCOUNTER 2024-08-11 14:17 | Outpatient (AMB) | payer OTHER, SELFPAY ==
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
[2024-08-11 14:31] VITALS: BP 122/80; BMI 36.3
== END 2024-08-11 15:14 | disposition home or self-care (01) ==
PROVIDERS: PCP Internal Medicine; Visit Provider Internal Medicine
DX: Z00.00 Encounter for general adult medical examination without abnormal findings (principal); M54.50 Low back pain, unspecified

== ENCOUNTER → 2024-08-11 14:17 | Outpatient (BNVA) | payer OTHER, SELFPAY | PROVIDERS: PCP Internal Medicine; Visit Provider Internal Medicine | DX: Z00.00 Encounter for general adult medical examination without abnormal findings (principal); M54.50 Low back pain, unspecified | CPT/HCPCS: 96127; 99212; 99396 ==

== ENCOUNTER 2024-11-01 14:54 | Emergency (ER) | payer OTHER, SELFPAY ==
--- NOTE | ~2024-11-01 | XR_ITS ---
CLINICAL HISTORY: fall, pain 2 view left ankle Comparison: None Findings: Faint distal fibular lucency. Moderate soft tissue edema. No significant loss of joint space, osteophytes, or erosions. No ankle effusion. No radiopaque foreign body. IMPRESSION: There is the suggestion of a nondisplaced distal left fibular fracture. Moderate soft tissue edema. Orthopedic follow-up recommended. This document has been electronically signed by: Pantera Bolton MD on 11/01/2024 18:07:51
--- NOTE | ~2024-11-01 | XR_ITS ---
CLINICAL HISTORY: fall, pain 3 view left foot Comparison: None Findings: No fracture or malalignment involving the osseous structures of the left foot. No significant loss of joint space, osteophytes, or erosions. Trace ankle effusion noted. No radiopaque foreign body. IMPRESSION: No fracture or malalignment of the osseous structures of the left foot. This document has been electronically signed by: Pantera Bolton MD on 11/01/2024 18:11:03
[2024-11-01 15:02] VITALS: BP 110/70; PULSE 86; O2SAT 98
[2024-11-01 16:27] VITALS: BP 124/76; PULSE 87; RESP 16; TEMP 36.6; O2SAT 99; BMI 37.4
[2024-11-01] MEDS: Ibuprofen 600 MG TABLET PO (16:33)
[2024-11-01 22:00] VITALS: BP 117/83; PULSE 95; RESP 17; TEMP 36.6; O2SAT 98
[2024-11-01] MEDS: Acetaminophen 325 MG TABLET 650 MG PO (22:01)
== END 2024-11-02 03:05 | disposition left against medical advice (07) ==
LOC: HO.ED 11-02 03:03
PROVIDERS: Emergency Provider Emergency Medicine
DX: M79.604 Pain in right leg (principal)
CPT/HCPCS: 73600; 73620; 99281; 99282

== ENCOUNTER → 2024-11-01 17:30 | Outpatient (BNV) | payer OTHER, SELFPAY | PROVIDERS: Visit Provider Radiology Vascular & Interventional Radiology | DX: M25.571 Pain in right ankle and joints of right foot (principal); M79.672 Pain in left foot | CPT/HCPCS: 73600; 73620 ==

== ENCOUNTER 2024-11-03 14:10 | Emergency (ER) | payer OTHER, SELFPAY ==
[2024-11-03 14:19] VITALS: BP 122/85; PULSE 93; RESP 18; TEMP 36.7; O2SAT 99; BMI 35.2
--- NOTE | 2024-11-03 14:19 | ED_ITS ---
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 Corado earlier today and advised to return to the ED. Patient presented to the ED on 11/01 with complaint of left ankle/lower leg pain after an injury at work but left from the waiting room due to wait time. X-ray was notable for a distal fibular fracture. Patient denies any changes since 11/01. MD complaint: ankle injury Place: work Severity scale (1-10): 7 Related Data Home Medications ?Medication ?Instructions ?Recorded ?Confirmed buspirone 15 mg tablet 15 mg PO TID 01/08/23 08/11/24 escitalopram oxalate 20 mg tablet 20 mg PO DAILY 01/08/23 08/11/24 zolpidem 10 mg tablet 5 mg PO BEDTIME PRN Insomnia 07/27/23 08/11/24 Previous Rx's ?Medication ?Instructions ?Recorded ergocalciferol (vitamin D2) 50 mcg 50 mcg PO DAILY 90 days #90 tabs 07/10/22 (2,000 unit) tablet famotidine 20 mg tablet (Pepcid) 20 mg PO BEDTIME #90 tabs 02/11/23 ibuprofen 800 mg tablet 800 mg PO Q8H PRN pain 30 days #90 03/08/23 tabs ondansetron 4 mg disintegrating 4 mg PO Q8H PRN nausea and 06/25/23 tablet vomiting #15 tabs methylcellulose (laxative) 500 mg 500 mg PO DAILY 90 days #90 tabs 07/27/23 tablet (Citrucel) lidocaine 5 % topical patch 1 patch topical DAILY #15 ea 07/28/24 (Lidoderm) omeprazole 20 mg capsule,delayed 20 mg PO DAILY 90 days #90 caps 07/31/24 release cetirizine 10 mg tablet (Allergy 10 mg PO DAILY PRN allergy 09/10/24 Relief (cetirizine)) symptoms 90 days #90 tabs Allergies Allergy/AdvReac Type Severity Reaction Status Date / Time No Known Allergies Allergy Verified 11/03/24 14:22 Review of Systems Review of Systems: As per HPI Yes all other systems are reviewed and are negative Constitutional: Constitutional: Reports as per HPI [facility] Past Medical History Medical History Hearing loss Lip lesion Physical exam Mild recurrent major depression Class 2 obesity with body mass index (BMI) of 37.0 to 37.9 in adult Aphthous ulcer Atypical mole Obese GERD (gastroesophageal reflux disease) Syncope Low back pain Vertigo Hypovitaminosis D B12 deficiency Insomnia Depression with anxiety Surgical History H/O colonoscopy History of tooth extraction History of laparoscopic cholecystectomy History of section History of tubal ligation Family History Family History Father CHF (congestive heart failure) Myocardial infarction Diabetes Mother Diabetes Hypertension Family/Other FH: uterine cancer Leukemia Social History Social History Household Members: Family Housing: Apartment Are you a primary customer care agent to a significant other at home: No Do you presently have visiting nurse or other home services: No Alcohol intake: current Alcohol intake frequency: a few times a month Alcohol type: beer and wine Patient Tobacco Use Status: Former Tobacco user Tobacco use type: Cigarette Cigarette Packs Per Day: 1 Years Smoked: 5 e-Cigarette/Vaping Use: Never Used Second Hand Smoke Exposure: No Advance Directives Date on File: 06/16/23 service: No Current occupational status: unemployed Cognitive needs: No Hearing needs: No Vision needs: No Physical Exam Vital Signs: Vital Signs: Vital signs have been reviewed and appear to be correct. Blood pressure normal. Heart rate normal. Respiratory rate normal. Temperature normal. Oxygen saturation normal. Const: General: cooperative, healthy appearing and no acute distress Orientation/consciousness: oriented to person, oriented to place, oriented to time and patient oriented x3 Limitations: no limitations HEENT: Head: Yes normocephalic and Yes atraumatic Ears: external ears normal General nose exam: Normal external nose present Face and sinus: Yes face symmetric Mouth: oropharynx normal and moist mucous membranes Throat: Yes uvula midline Eyes: Pupils: Equal, round and reactive pupils present Neck: Neck: Yes normal visual inspection and Yes supple Resp: Effort & Inspection: normal respiratory effort and able to speak in complete sentences Auscultation: clear to auscultation bilaterally Cardio: Rate: regular rate Rhythm: regular rhythm Heart sounds: S1 normal heart sound present and S2 normal heart sound present GI: Palpation (GI): Soft to palpation and nontender Auscultation: normoactive bowel sounds : General: Yes no CVA tenderness Back/Spine/Pelvis: Back: no CVA tenderness Skin: General skin exam: elasticity normal and turgor normal Neuro: General: oriented to person, oriented to place, oriented to time, patient oriented x3, moves all extremities, no focal motor deficits and CN's II- XI intact bilaterally Cranial nerves: Yes Equal, round and reactive pupils present Cognition (Neuro): normal cognition Extrem: General: Yes full ROM, Yes no pedal edema and Yes no calf tenderness Left lower extremity: ankle Details: normal to inspection, tenderness Location: of the lateral malleolus and normal ROM Psych: Mental Status: mental status grossly normal Affect: normal affect Thought process: Normal thought process present Medical Decision Making Medical Decision Making [facility] Narrative: Patient is a 49-year-old female returning to the ED after being contacted by Dr. Corado earlier today and advised to return to the ED. On exam patient is awake, A+Ox3, VS WNL, afebrile, normal neurological exam without focal deficits, physical exam findings as above. Given prior imaging results, initial differential includes but is not limited to distal fibula fracture. Patient placed in walking boot and provided with crutches and crutch teaching. Referred to orthopedics for further evaluation and management. Advised to remain nonweightbearing on left leg until seen by orthopedics. Return precautions discussed at bedside. Patient verbalized understanding of and agreement with plan. In-person physical therapy technician was utilized for all interactions, assessments, and discussions. Differential Diagnosis Differential Diagnoses: The differential diagnosis associated with the presentation includes as per mdm Independent Interpretation I performed an independent interpretation of an: Plain X-Ray (from 11/01) Interpretation: distal fibular fracture, left Radiology Impression Discussion of test interpretation with radiology: I have reviewed the radiologist's reading. Radiologist Impression: 2 view left ankle Comparison: None Findings: Faint distal fibular lucency. Moderate soft tissue edema. No significant loss of joint space, osteophytes, or erosions. No ankle effusion. No radiopaque foreign body. IMPRESSION: There is the suggestion of a nondisplaced distal left fibular fracture. Moderate soft tissue edema. Orthopedic follow-up recommended. External Record Review External record reviewed: Inpatient record, Office record and Outpatient record Discharge Plan Discharge Clinical Impression: Fracture of distal end of fibula Qualifiers: Encounter type: subsequent encounter Fracture type: closed Laterality: left Patient Disposition: Home, Self-Care Instructions: Crutch Instructions (ED), Leg Fracture (ED), Walking Boot (ED) Additional Instructions: You have been evaluated in the emergency department today for leg pain. Your evaluation showed a fracture of your fibula. We have placed your leg in a walk ing boot today, wear this until you follow up with orthopedics. Please rest, ice, and elevate your leg to help it heal. You have been provided with crutches for you to use at home while your leg heals. Use use Tylenol or ibuprofen per package directions every 6 hours as needed for pain. If necessary, you can alternate these medications and take one medication every 3 hours. For instance, at noon take ibuprofen, then at 3:00 p.m. take Tylenol, then at 6:00 p.m. take ibuprofen. Please follow-up with the orthopedic surgeon within 1 week. Return to the emergency department if you experience worsening pain, numbness, tingling, change of color in your leg, foot or toes, or any other concerning symptoms. Prescriptions: No Action ergocalciferol (vitamin D2) 50 mcg (2,000 unit) tablet 50 mcg PO DAILY 90 Days Qty: 90 1RF famotidine [Pepcid] 20 mg tablet 20 mg PO BEDTIME Qty: 90 3RF ibuprofen 800 mg tablet 800 mg PO Q8H PRN (Reason: pain) 30 Days Qty: 90 1RF omeprazole 20 mg capsule,delayed release(DR/EC) 20 mg PO DAILY 90 Days Qty: 90 1RF cetirizine [Allergy Relief (cetirizine)] 10 mg tablet 10 mg PO DAILY PRN (Reason: allergy symptoms) 90 Days Qty: 90 1RF lidocaine [Lidoderm] 5 % adhesive patch,medicated 1 patch topical DAILY Qty: 15 0RF Rx Instructions: leave on most painful area for up to 12 hrs Citrucel 500 mg tablet 500 mg PO DAILY 90 Days Qty: 90 1RF escitalopram oxalate 20 mg tablet 20 mg PO DAILY buspirone 15 mg tablet 15 mg PO TID zolpidem 10 mg tablet 5 mg PO BEDTIME PRN (Reason: Insomnia) ondansetron 4 mg tablet,disintegrating 4 mg PO Q8H PRN (Reason: nausea and vomiting) Qty: 15 0RF Referrals: [facility] Orthopedic Surgeons [Provider Group] - 1 week (2 view left ankle Comparison: None Findings: Faint distal fibular lucency. Moderate soft tissue edema. No significant loss of joint space, osteophytes, or erosions. No ankle effusion. No radiopaque foreign body. IMPRESSION: There is the suggestion of a nondisplaced distal left fibular fracture. Moderate soft tissue edema. Orthopedic follow-up recommended.) Stand Alone Forms: Work/School Release Print Language: Occitan
[2024-11-03 14:56] VITALS: BP 122/85; PULSE 93; RESP 18; TEMP 36.7; O2SAT 99
== END 2024-11-03 14:56 | disposition home or self-care (01) ==
PROVIDERS: Emergency Provider Emergency Medicine Emergency Medical Services; PCP Internal Medicine
DX: S82.832A Other fracture of upper and lower end of left fibula, initial encounter for closed fracture (principal); M79.605 Pain in left leg; Y33.XXXA Other specified events, undetermined intent, initial encounter; Y93.9 Activity, unspecified; Y92.9 Unspecified place or not applicable; Y99.0 Civilian activity done for income or pay; Z79.899 Other long term (current) drug therapy
CPT/HCPCS: 99282

== ENCOUNTER 2024-11-14 10:33 | Outpatient (AMB) | payer OTHER, SELFPAY ==
[2024-11-14 10:47] VITALS: BMI 35.5
--- NOTE | 2024-11-14 10:47 | MHC.OFFVIS ---
Vital Signs 11/14/24 10:47 11/14/24 11:07 Height 5 ft 7 in 5 ft 7 in Weight 227 lb 227 lb BMI 35.5 35.5 Handedness Right Intake Visit Reasons: FC Left Distal Fibula Fracture - 11/01/24 Intake Note: Marquita is a 49 year old Niuean speaking female who presents today with her family friend for a Fracture Care visit On 11/01/24 Patient fell at work, fracturing her left distal fibula. She was seen at ED the day of injury but left without being seen due to long wait times. She then returned to the ED on 11/03/24 where she was placed in a short walking boot w/ crutches. She states when she was leaving work, she was walking towards to get to her car. Patient had to take a different route to get to her car when she slipped, fell and twisted her ankle. Patient mentions that her pain is a 4/10 on the pain scale and she pain is mainly has pain in her calf and behind her knee. She states that her pain in her ankle is only when she is moving her ankle. Denies numbness and tingling in her toes. Crop Pest Control Specialist Services: Crop Pest Control Specialist Offered & Declined Allergies No Known Allergies Allergy (Verified 11/14/24 10:58) HPI HPI FC Left Distal Fibula Fracture - 11/01/24: Details: Ms. Thien Grady is a 49-year-old female who presents to the office today for evaluation of a left ankle injury that she sustained on 11/01/2024. 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 She slipped and fell on ice inverting her left ankle. She presented to the emergency department where x-rays were obtained and she was told she had a left distal fibular fracture. She was placed into a splint and instructed to follow up with orthopedics outpatient for further evaluation and treatment. [facility] Medical History Hearing loss Lip lesion Physical exam Mild recurrent major depression Class 2 obesity with body mass index (BMI) of 37.0 to 37.9 in adult Aphthous ulcer Atypical mole Obese GERD (gastroesophageal reflux disease) Syncope Low back pain Vertigo Hypovitaminosis D B12 deficiency Insomnia Depression with anxiety Surgical History H/O colonoscopy History of tooth extraction History of laparoscopic cholecystectomy History of section History of tubal ligation Family History Father CHF (congestive heart failure) Myocardial infarction Diabetes Mother Diabetes Hypertension Family/Other FH: uterine cancer Leukemia Social History (Updated 11/14/24 @ 11:07 by Julianne Malcolm) Household Members: Family Housing: Apartment Are you a primary care partner to a significant other at home: No Do you presently have visiting nurse or other home services: No Alcohol intake: current Alcohol intake frequency: a few times a month Alcohol type: beer and wine Patient Tobacco Use Status: Former Tobacco user Tobacco use type: Cigarette Cigarette Packs Per Day: 1 Years Smoked: 5 e-Cigarette/Vaping Use: Never Used Second Hand Smoke Exposure: No Advance Directives Date on File: 06/16/23 service: No Current occupational status: employed 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[employer] Cognitive needs: No Hearing needs: No Vision needs: No Female Reproductive History Menstrual Age of Menarche: 9 Review of Systems Const All systems reviewed & are unremarkable except as noted in HPI and below Physical Exam Vital Signs: BMI result Body Mass Index 35.5 Const General: cooperative, healthy appearing and no acute distress Resp Effort & Inspection: normal respiratory effort and able to speak in complete sentences Cardio Rate: regular rate Peripheral pulses: Peripheral pulses 2+ throughout Skin Lesions: no lesions Rashes: no rashes Extrem Other: Left ankle: Mild edema lateral malleolus. No ecchymosis or erythema. Slight tenderness to palpation over the lateral malleolus. Patient is able to demonstrate dorsiflexion, plantar flexion, pronation and supination. Negative anterior drawer. Sensation intact. Pedal Pulse intact. Assessment & Plan Assessment & Plan (1) Left ankle sprain: Code(s): S93.402A - Sprain of unspecified ligament of left ankle, initial encounter Category: Medical Plan Ms. Thien Grady is a 49-year-old female who presents to the office today for evaluation of a left ankle injury that she sustained on 11/01/2024. 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 She slipped and fell on ice inverting her left ankle. She presented to the emergency department where x-rays were obtained and she was told she had a left distal fibular fracture. She was placed into a splint and instructed to follow up with orthopedics outpatient for further evaluation and treatment. While in the office today, the patient was instructed to discontinue the short walking boot. She was transitioned to a lace-up ankle brace that was provided to her and fit to her while in the office today off the shelf. We discussed the role of physical therapy for the patient is having minimal pain and full range of motion. She can wear the brace for the next few weeks for support and then should discontinue to avoid any stiffness. She was provided with a work note to return to work full-time regular duty as well as that she was here today for an appointment. She will follow p.r.n., sooner if needed. X-rays of the left which were obtained while in the office today and were reviewed by me, Crystal Ahn PA-C, revealed no acute fracture dislocation. Orders: Orders XR ankle LT min 3V Today M25.579 - Pain in unspecified ankle and joints of unspecified foot Coding Level of Care Code New Pt Level 3 (26075) Diagnoses Left ankle sprain S93.402A
[2024-11-14 11:07] VITALS: BMI 35.5
--- OUTSIDE RECORDS SUMMARY | 2024-11-14 11:53 | XMS_ITS ---
Author Organization [facility] Address [address] [place] [address] Care Team Providers Care Area Field Manager Name Role Phone Pili Connell Primary Care Provider Unavailab Roman Mitchell Jr [phone] REASON FOR VISIT dulcolax Encounters Encounter Location Date Provider Diagnosis [facility] [address] [place] [id number] 08/31/2023 Roman Montenegro Jr PLAN OF TREATMENT No Information
--- OUTSIDE RECORDS SUMMARY | 2024-11-14 11:54 | XMS_ITS | Patient Health Record ---
Author Organization [facility] Address [address] [place] [address] Care Team Providers Care Home Specialist Name Role Phone Pili Connell Primary Care Provider UnavailRoman Campbell Jr Unavailable ALLERGIES No Known Allergies REASON FOR REFERRAL No Information MEDICATIONS Medication SIG (Take, Route, Frequency, Duration) Notes Start Date End Date Status Ibuprofen 800 MG Oral for 30 A ctive MiraLax (colon prep) 17 GM/SCOOP mixed with Gatorade or Crystal Light Orally begin at 5:00 p.m. the day before the procedure for 1 day 08/31/2023 Active Dicyclomine HCl 20 MG 1 tablet Orally 2- 4 times a day 08/31/2023 Active Escitalopram Oxalate 20 MG TOME DAI TABL ETA TODOS LOS D Oral for 90 Active busPIRone HCl 15 MG Oral for 90 Active IMMUNIZATIONS Vaccine Route Administration Date Status Comme nts Influenza Unknown 08/21/2023 Administered SOCIAL HISTORY Tobacco Use: Social History Observation Description Date Details (start date - stop date) Never Smoker NA - NA Sex Assigned At : Social History Observation Description Sex Assigned At Unknown Tobacco Use/Smoking Question Answer Notes Patient is a nonsmoker Alcohol Screen Question Answer Notes Did you have a drink contain ing alcohol in the past year? Yes How often did you have a dri nk containing alcohol in the past year? Monthly or less (1 point) How many drinks did you have on a typical day when you were drinking in the past year? 5 or 6 drinks (2 points) How often did you have 6 or more drinks on one occasion in the past year? Less than monthly (1 point) Points 4 Interpretation Positive PROBLEMS Problem Type ICD Code Onset Dates Problem Status W/U Status Risk SNOMED Code Notes Problem Ischemic colitis (K55.9) Active confirmed 51329497 PLAN OF TREATMENT Future Test Test Name Order Date COLONOSCOPY 08/31/2023 Insurance Providers Payer Name Payer Address Payer Phone Subscriber Number Group Number Insured Name Patient Relationship to Insured Coverage Start Date Coverage End Date [facility] [address] [address] [place], [place] [id number] TACHO ROMAN Self - patient is the insured MEDICAL (GENERAL) HISTORY Medical History History ICD Code Ischemic colitis, 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
--- OUTSIDE RECORDS SUMMARY | 2024-11-14 11:54 | XMS_ITS ---
Author Organization [facility] Address [address] [place] [address] Care Team Providers Care Negative Developer Name Role Phone Pili Connell Primary Care Provider Unavailab Roman Mitchell Jr [phone] REASON FOR VISIT pathology Encounters Encounter Location Date Provider Diagnosis [facility] [address] [place] [address] 10/22/2023 Roman Montenegro Jr PLAN OF TREATMENT No Information
== END 2024-11-14 11:38 | disposition home or self-care (01) ==
PROVIDERS: PCP Internal Medicine; Visit Provider Physician Assistant
DX: S93.402A Sprain of unspecified ligament of left ankle, initial encounter (principal)
CPT/HCPCS: 99203

== ENCOUNTER → 2024-11-14 10:43 | Outpatient (BNV) | payer OTHER, SELFPAY | PROVIDERS: Visit Provider Radiology Diagnostic Radiology | DX: M25.579 Pain in unspecified ankle and joints of unspecified foot (principal) | CPT/HCPCS: 73610 ==

== ENCOUNTER 2024-11-14 12:55 | Outpatient (REF) | payer OTHER, SELFPAY ==
--- NOTE | ~2024-11-14 | XR_ITS ---
EXAMINATION: XR ANKLE, LEFT CLINICAL INFORMATION: M25.579 - Pain in unspecified ankle and joints of unspecified foot COMPARISON: 11/01/2024. TECHNIQUE: AP, lateral, and mortise views of the left ankle. FINDINGS: Possible but doubtful transverse lateral malleolar fracture, only suggested on the oblique projection. This is not seen on the lateral or AP projections. No interval evidence of healing or periostitis. Otherwise no fracture, dislocation, or suspicious bone lesion. Normal mortise. Intact talar dome. Subtalar joints and calcaneus appear normal. Normal plantar arch. Mild lateral soft tissue swelling, improving. XR/XR ankle LT min 3V IMPRESSION: 1. Possible but doubtful nondisplaced fracture of the lateral malleolus. No interval healing or periostitis is present. See above. 2. No additional bony abnormalities. 2. Mild lateral soft tissue swelling, improved. Electronically signed by: Terry Eduardo MD 11/15/2024 12:21 PM H[facility]
== END 2024-11-14 12:56 | disposition home or self-care (01) ==
LOC: HO.HOSX 12:55
PROVIDERS: Visit Provider Physician Assistant
DX: M25.579 Pain in unspecified ankle and joints of unspecified foot (principal)
CPT/HCPCS: 73610; 99202

== ENCOUNTER 2025-02-08 16:42 | Outpatient (AMB) | payer OTHER, SELFPAY ==
--- OUTSIDE RECORDS SUMMARY | 2025-02-08 16:44 | XMS_ITS ---
Author Organization [facility] Address [address] [place] [address] Care Team Providers Care Chief Scientific Officer Name Role Phone Pili Connell Primary Care Provider Unavailab Roman Mitchell Jr REASON FOR VISIT dulcolax Encounters Encounter Location Date Provider Diagnosis [facility] [address] [facility] [address] [place] [phone] 08/31/2023 Roman Montenegro Jr Plan Of Treatment No Information Progress Notes * TRE SPRAGUEB:1974 (48 yo F)Acc No.[id number]:08/31/2023 Patient:?SPRAGUE TACHO :1975???Age:48 Y???Sex:Female Address:[address] [place] [address], [place], [address] * true * Date:? Generated for Printi harvinder/Maricel/eTransmitting on:?02/08/2025 04:44 PM EDT
--- OUTSIDE RECORDS SUMMARY | 2025-02-08 16:44 | XMS_ITS ---
Author Organization [facility] Address [address] [place] [phone] Care Team Providers Care Pressure Dispatcher Name Role Phone Pili Connell Primary Care Provider Unavailab Roman Mitchell Jr [phone] REASON FOR VISIT pathology Encounters Encounter Location Date Provider Diagnosis [facility] [address] [place] [phone] 10/22/2023 Roman Montenegro Jr Plan Of Treatment No Information Progress Notes * TRE SPRAGUEB:1974 (48 yo F)Acc No.[id number]:10/22/2023 Patient:?SPRAGUE TACHO :1975???Age:48 Y???Sex:Female Address:[address] [place] [address], [place], [id number] * true * Date:? Generated for Roberti harvinder/Maricel/eTransmitting on:?02/08/2025 04:44 PM EDT
--- OUTSIDE RECORDS SUMMARY | 2025-02-08 16:45 | XMS_ITS | Patient Health Record ---
Author Organization [facility] Address [address] [place] [address] Care Team Providers Care Finnish Rubber Name Role Phone Pili Connell Primary Care Provider UnavailRoman Campbell Jr Unavailable [phone] Allergies No Known Allergies Reason For Referral No Information Medications Medication SIG (Take, Route, Frequency, Duration) Notes [...] HCl 15 MG Oral for 90 Active Immunizations Vaccine Route Administration Date Status Comme nts Influenza Unknown 08/21/2023 Administered Social History Tobacco Use: Social History Observation Description Date Details (start date - stop date) Never Smoker NA - NA Tobacco Use/Smoking Question Answer Notes Patient is [...] monthly (1 point) Points 4 Interpretation Positive Problems Problem Type SNOMED Code ICD Code Onset Dates Problem Status W/U Status Risk Notes Problem [id number] Ischemic colitis (K55.9) Active confirmed Plan Of Treatment Future Test Test Name Order Date COLONOSCOPY 08/31/2023 Insurance Providers Payer Name Payer Address Payer Phone Subscriber Number Group Number Insured Name Patient Relationship to Insured Coverage Start Date Coverage End Date [facility] [address] [address] [place], [place] [id number] TACHO ROMAN Self - patient is the insured Medical (General) History Medical History History ICD Code Ischemic colitis, 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
--- NOTE | 2025-02-08 17:00 | MHC.PC.OV ---
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 Required: No Accompanied by: Self / Same As Patient Allergies No Known Allergies Allergy (Verified 02/08/25 17:25) Medication List - Last Reconciled 02/08/25 by Pili Rudd MD buspirone 15 mg PO TID cetirizine (Allergy Relief (cetirizine)) 10 mg PO DAILY PRN 90 days ergocalciferol (vitamin D2) 50 mcg PO DAILY 90 days escitalopram oxalate 20 mg PO DAILY famotidine (Pepcid) 20 mg PO BEDTIME ibuprofen 800 mg PO Q8H PRN 30 days lidocaine 5% (Lidoderm) 1 patch topical DAILY methylcellulose (laxative) (Citrucel) 500 mg PO DAILY 90 days omeprazole 20 mg PO DAILY 90 days ondansetron 4 mg PO Q8H PRN zolpidem 5 mg PO BEDTIME PRN Tobacco use date assessed: 02/08/25 Dental Screening Dental Screen Date: 02/08/25 Did you have a dental visit in the last 12 months?: Yes Did you have a dental problem in the last 6 months where you did not have access to dental care?: No Was dental information given to patient?: Patient has dentist HPI HPI Comments History of Present Illness Details The patient is a 49-year-old female presenting with urinary incontinence, characterized by involuntary urine leakage upon coughing, sneezing, or sudden movement shifts. The condition, appearing to escalate over time, has notably impacted her work and personal hygiene perceptions, possibly influenced by increased abdominal pressure events. Concurrently, the patient manages depression and anxiety, experiencing heightened depressive episodes and memory challenges. These symptoms are part of an ongoing psychiatric treatment plan that includes medications like buspirone and escitalopram. Alcohol consumption is typically moderate, without current tobacco use, aligning with previous cessation efforts. Constipation and GERD stable with medications. [facility] Medical History (Updated 02/08/25 @ 17:35 by Pili Rudd MD) Hearing loss Lip lesion Physical exam Mild recurrent major depression Class 2 obesity with body mass index (BMI) of 37.0 to 37.9 in adult Aphthous ulcer Atypical mole Obese GERD (gastroesophageal reflux disease) Syncope Low back pain Vertigo Hypovitaminosis D B12 deficiency Insomnia Depression with anxiety Surgical History H/O colonoscopy History of tooth extraction History of laparoscopic cholecystectomy History of section History of tubal ligation Family History Father CHF (congestive heart failure) Myocardial infarction Diabetes Mother Diabetes Hypertension Family/Other FH: uterine cancer Leukemia Social History Household Members: Family Housing: Apartment Are you a primary neonatal critical care nurse to a significant other at home: No Do you presently have visiting nurse or other home services: No Alcohol intake: current Alcohol intake frequency: a few times a month Alcohol type: beer and wine Patient Tobacco Use Status: Former Tobacco user Tobacco use type: Cigarette Cigarette Packs Per Day: 1 Years Smoked: 5 Packs Per Year: 5 e-Cigarette/Vaping Use: Never Used Second Hand Smoke Exposure: No Advance Directives Date on File: 06/16/23 service: No Current occupational status: employed 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 1. Little interest or pleasure in doing things: several days 2. Feeling down, depressed, or hopeless: several days 3. Trouble falling or staying asleep, or sleeping too much: more than half the days 4. Feeling tired or having little energy: more than half the days 5. Poor appetite or overeating: more than half the days 6. Feeling bad about yourself - or that you are a failure or have let yourself or your family down: more than half the days 7. Trouble concentrating on things, such as reading the newspaper or watching television: more than half the days 8. Moving or speaking so slowly that other people could have noticed. Or the opposite - being so fidgety or restless that you have been moving around a lot more than usual: not at all 9. Thoughts that you would be better off or of hurting yourself in some way: not at all Total score: 12 Depression Screening Interpretation: Positive Depression Screening Follow-up: Existing condition, In treatment, Community Mental Health Worker F/U and Follow-up Visit Requested Depression Screening Done: Yes 10399 - PHQ-9 Billing: Yes Source: Developed by Drs. Darren Bui, Gisele Ge, Edvin French and colleagues, with an educational primo from [employer]. Thrive Questionnaire Date Thrive assessed: 02/06/25 I am a: Patient What is your living situation today?: I have a steady place to live Within the past 12 months, did the food you bought not last and you didn't have the money to get more?: Sometimes True Within the past 12 months, did you worry whether your food would run out before you got money to buy more?: Often true Do you have trouble paying for medicines?: No Do you have trouble getting transportation to medical appointments?: No Do you have trouble paying your heating and electricity bill?: No Do you have trouble taking care of your child, family member or friend?: No Do you have trouble with day-to-day activities such as bathing, preparing meals, shopping, managing finances, etc.?: No Are you currently unemployed and looking for a job?: No Are you interested in more education?: No Please select the resources that you would like help with: Food Currently or been in a relationship where the following occur: I choose not to answer THRIVE Score: 2 AUDIT C Alcohol Use Questionnaire (AUDIT-C) 1. How often do you have a drink containing alcohol?: Monthly or less 2. How many drinks containing alcohol do you have on a typical day when you are drinking?: 1 or 2 3. How often do you have six or more drinks on one occasion?: Never Total Score: 1 Score Reviewed/Action Taken: No BENTON-7 AMB Questionnaire BENTON-7 Date BENTON - 7 assessed: 02/08/25 Feeling nervous, anxious, or on edge: 2 = More than half the days Not being able to stop or control worryin = More than half the days Worrying too much about different things: 2 = More than half the days Trouble relaxin = Several days Being so restless that it is hard to sit still: 2 = More than half the days Becoming easily annoyed or irritable: 2 = More than half the days Feeling afraid as if something awful might happen: 2 = More than half the days Total BENTON-7 score (0-4 normal; 5-9 mild; 10-14 moderate; 15-21 severe): 13 Source: Developed by Drs. Darren Bui, Gisele Ge, Edvin French and colleagues, with an educational primo from [employer]. BENTON-7 Assessment Billing BENTON-7 Assessment Tool: BENTON-7 Assessment 15394 Review of Systems Const All systems reviewed & are unremarkable except as noted in HPI and below Card Denies chest pain at rest, Denies chest pain with activity, Denies edema, Denies irregular heart rhythm, Denies claudication, Denies dyspnea, Denies dyspnea on exertion, Denies orthopnea, Denies paroxysmal nocturnal dyspnea and Denies slow heart rate Resp Denies cough, Denies dyspnea and Denies dyspnea on exertion GI Denies abdominal pain, Denies change in bowel habits, Denies excessive flatus, Denies nausea and Denies vomiting Physical exam (Primary Care) Vital Signs: Last Vital Signs BP 118/80 02/08/25 17:02 BMI result Body Mass Index 34.3 BMI Assessment/Plan discussion: High BMI High, discussed plan: lifestyle, weight reduction, dietary and physical activity Tobacco/Smoking Status: Tobacco use Status Tobacco use date assessed 02/08/25 02/08/25 17:13 Patient Tobacco Use Status Former Tobacco user 02/08/25 17:13 Tobacco use type Cigarette 02/08/25 17:13 e-Cigarette/Vaping Use Never Used 02/08/25 17:13 PHQ-9: PHQ-9 Score PHQ-9: Total score 12 02/08/25 17:32 Depression Screening Interpretation: Positive Depression Screening Follow-up: Existing condition, In treatment, Community Mental Health Worker F/U and Follow-up Visit Requested Thrive Assessment: Date of Thrive Assessment Date Thrive assessed 02/06/25 02/08/25 17:13 Currently or been in a relationship where the following occur: I choose not to answer Resp Effort & Inspection: normal respiratory effort Auscultation: clear to auscultation bilaterally Cardio Jugular venous distension: no JVD Rate: regular rate Rhythm: regular rhythm Heart sounds: S1 normal heart sound present and S2 normal heart sound present Extrem General: Yes full ROM Coding Level of Care Code Est Pt Level 4 (16082) Complex EM visit Add On G2211 Diagnoses Overflow stress urinary incontinence in female N39.3; N39.490 Chronic idiopathic constipation K59.04 BENTON (generalized anxiety disorder) F41.1 Mild recurrent major depression F33.0 Additional Codes BENTON-7 Assessment Billing - BENTON-7 Assessment Tool: BENTON-7 Assessment 94784 ([id number]) PHQ-9 - 25733 - PHQ-9 Billing: Yes ([id number]) Time Spent (min) 22 Assessment & Plan Assessment & Plan (1) Overflow stress urinary incontinence in female: Code(s): N39.3 - Stress incontinence (female) (male); N39.490 - Overflow incontinence Category: Medical (2) Chronic idiopathic constipation: Code(s): K59.04 - Chronic idiopathic constipation Category: Medical (3) BENTON (generalized anxiety disorder): Code(s): F41.1 - Generalized anxiety disorder Category: Medical (4) Mild recurrent major depression: Code(s): F33.0 - Major depressive disorder, recurrent, mild Category: Medical Plan To address the urinary incontinence, I reviewed treatments including possible medication trials and the importance of Kegel exercises. We discussed consulting a urologist for further evaluation, possibly leading to surgical considerations. For her psychiatric conditions, maintaining current medication regimens with buspirone and escitalopram is necessary under ongoing psychiatric care. Labs for Hepatitis and T-spot blood testing are planned to meet occupational health standards. Her medication adherence for GERD and allergies continues as before. We reviewed the status of her flu vaccination, concluding its relevance for her health regimen. Patient was informed and verbally consented to the use of an ambient scribe for clinic note documentation during this visit. During the visit, I discussed the patient's symptoms of urinary incontinence and potential management strategies, emphasizing non-surgical methods initially while considering eventual urological evaluation. Counseling focused on her psychiatric conditions, affirming the current treatment approach with psychiatric medications and highlighting her continued care under psychiatry. We reviewed the necessity of lab tests, including Hepatitis screening and T-spot, aligning with her employment health requirements. I clarified the status of immunizations, specifically the flu vaccine, briefed her on potential medication side effects, including dry mouth, and addressed her upcoming leisure plans to ensure well-being. Orders: Orders T Spot TB Today Z11.1 - Encounter for screening for respiratory tuberculosis Hepatitis B Profile Today Z23 - Encounter for immunization Vitamin D 25-OH Total 6 Months E55.9 - Vitamin D deficiency, unspecified Lipid Panel 6 Months E78.5 - Hyperlipidemia, unspecified Comprehensive [place]. Panel Fast 6 Months M54.50 - Low back pain, unspecified Vitamin B12 and Folate 6 Months E53.8 - Deficiency of other specified B group vitamins Medications: New oxybutynin chloride ER 5 mg PO DAILY 30 tabs 0RF 30 days incontinence pad, liner, disp Use 1 pand once a day 90 ea 11RF N39.3 - Stress incontinence (female) (male), N39.490 - Overflow incontinence Patient Instructions: - Perform Kegel exercises regularly as advised. - Continue psychiatric medications as prescribed. - Plan for Hepatitis and T-spot testing as discussed. - Monitor for side effects of medications, such as dry mouth. - Stay up to date with vaccinations, including the flu shot. - Review any changes in symptoms with her healthcare provider. - Preparations for travel, mindful of health and wellness needs. - Follow up with medical appointments as scheduled.
[2025-02-08 17:02] VITALS: BP 118/80; BMI 34.3
== END 2025-02-08 17:41 | disposition home or self-care (01) ==
LOC: HO.HMCH 16:42
PROVIDERS: PCP Internal Medicine; Visit Provider Internal Medicine
DX: N39.3 Stress incontinence (female) (male) (principal); N39.490 Overflow incontinence; K59.04 Chronic idiopathic constipation; F41.1 Generalized anxiety disorder; F33.0 Major depressive disorder, recurrent, mild

== ENCOUNTER → 2025-02-08 16:42 | Outpatient (BNVA) | payer OTHER, SELFPAY | PROVIDERS: PCP Internal Medicine; Visit Provider Internal Medicine | DX: N39.3 Stress incontinence (female) (male) (principal); N39.490 Overflow incontinence; K21.9 Gastro-esophageal reflux disease without esophagitis; K59.04 Chronic idiopathic constipation; F41.1 Generalized anxiety disorder; F33.0 Major depressive disorder, recurrent, mild; E55.9 Vitamin D deficiency, unspecified; E78.5 Hyperlipidemia, unspecified; M54.50 Low back pain, unspecified; E53.8 Deficiency of other specified B group vitamins; Z79.899 Other long term (current) drug therapy | CPT/HCPCS: 96127; 99212 ==

== ENCOUNTER 2025-02-09 09:24 | Outpatient (REF) | payer OTHER, SELFPAY ==
--- OUTSIDE RECORDS SUMMARY | 2025-02-09 09:41 | XMS_ITS ---
Author Organization [facility] Address [address] [place] [address] Care Team Providers Care Weight Caller Name Role Phone Pili Connell Primary Care Provider Unavailab Roman Mitchell Jr Unavailable REASON FOR VISIT ischemic colitis Medications Medication SIG (Take, Route, Frequency, Duration) [...] HCl 15 MG Oral for 90 Active Encounters Encounter Location Date Provider Diagnosis [facility] [address] [place] [phone] 10/14/2023 Roman Montenegro Jr Acute (reversible) ischemia of large intestine, extent unspecified K55.039 Assessments Encounter Date Diagnosis (ICD Code) Assessment Notes Treatment Notes Treatment Clinical Notes Section Notes 10/14/2023 Acute (reversible) ischemia of large intestine, extent unspecified (ICD-10 - K55.039) Plan Of Treatment No Information Progress Notes * TRE ROMANB: 1975 (49 yo F)Acc No.[id number]:10/14/2023 COLON WITH MAC Patient:?RONNI ROMAN Provider:?Roman Montenegro MD :1975???Age:48 Y???Sex:Female D ate:10/14/2023 Address:[address] [place], [place] [id number] Pcp:Pili Rudd Subjective: * Chief Complaints: * ???1. Ischemic colitis. * Medical History:? * Medications:?Taking Escitalo pram Oxalate 20 MG Tablet TOME DAI TABLETA TODOS LOS D Oral , Taking busPIRone HCl 15 MG Tablet Oral , Taking Ibuprofen 800 MG Tablet Oral , Taking MiraLax (colon prep) 17 GM/SCOOP Powder mixed with Gatorade or Crystal Light Orally begin at 5:00 p.m. the day before the procedure , Taking Dicyclomine HCl 20 MG Tablet 1 tablet Orally 2-4 times a day Objective: * Vitals:? Assessment: * Assessment: 1.?Acute (reversible) ischem ia of large intestine, extent unspecified - K55.039 (Primary)??? Plan: * Treatment: * Procedure Codes:?96371 COLON OSCOPY AND BIOPSY * * The named appointment provid er may or may not be the originator of this progress note, and it is not deemed complete until electronically signed by the appointment provider. Sign off status: Pending * Provider:?Roman Montenegro MD Date:?0 10/14/2023 Generated for Sully blanton/Maricel/eTahmetsmitting on:?02/09/2025 09:41 AM EDT
--- OUTSIDE RECORDS SUMMARY | 2025-02-09 09:41 | XMS_ITS | Patient Health Record ---
Author Organization [facility] Address [address] [place] [address] Care Team Providers Care Pie Icer Machine Name Role Phone Pili Connell Primary Care Provider UnavailRoman Campbell Jr Unavailable Allergies No Known Allergies Reason For Referral [...] Problem Status W/U Status Risk Notes Problem [id number] Ischemic colitis (K55.9) Active confirmed Plan Of Treatment Future Test Test Name Order Date COLONOSCOPY 08/31/2023 Insurance Providers Payer Name Payer Address Payer Phone Subscriber Number Group Number Insured Name Patient Relationship to Insured Coverage Start Date Coverage End Date 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
--- OUTSIDE RECORDS SUMMARY | 2025-02-09 09:41 | XMS_ITS ---
Author Organization [facility] Address [address] [place] [phone] Care Team Providers Care Air Technician Name Role Phone Pili Connell Primary Care Provider Unavailab Roman Mitchell Jr [phone] REASON FOR VISIT pathology Encounters Encounter Location Date Provider Diagnosis [facility] [address] [place] [phone] 10/22/2023 Roman Montenegro Jr Plan Of Treatment No Information Progress Notes * TRE SPRAGUEB:1974 (48 yo F)Acc No.[id number]:10/22/2023 Patient:?SPRAGUE TACHO :1975???Age:48 Y???Sex:Female Address:[address] [place] [address], [place], [id number] * true * Date:? Generated for Roberti harvinder/Maricel/eTransmitting on:?02/09/2025 09:41 AM EDT
--- OUTSIDE RECORDS SUMMARY | 2025-02-09 09:41 | XMS_ITS ---
Author Organization [facility] Address [address] [place] [phone] Care Team Providers Care General Partner Name Role Phone Pili Connell Primary Care Provider Unavailab Roman Mitchell Jr [phone] REASON FOR VISIT dulcolax Encounters Encounter Location Date Provider Diagnosis [facility] [address] [place] [phone] 08/31/2023 Roman Montenegro Jr Plan Of Treatment No Information Progress Notes * TRE SPRAGUEB:1974 (48 yo F)Acc No.[id number]:08/31/2023 Patient:?SPRAGUE TACHO :1975???Age:48 Y???Sex:Female Address:[address] [place] [address], [place], [address] * true * Date:? Generated for Printi harvinder/Maricel/eTransmitting on:?02/09/2025 09:41 AM EDT
[2025-02-09 11:40] LABS: Alanine Aminotransferase 16 U/L (0-31); Albumin Level 3.8 g/dL (3.5-5.0); Alkaline Phosphatase 84 U/L (39-117); Anion Gap 12 (12-20); Aspartate Amino Transferase 17 U/L (5-31); Bilirubin Total 0.2 mg/dL (0.0-1.0); Blood Urea Nitrogen 11 mg/dL (9-16); Carbon Dioxide 27 mmol/L (22-29); Chloride 107 mmol/L (96-108); Cholesterol 141 mg/dL (<200); Estimated Glomerular Filt Rate > 60; Glucose Fasting 111 mg/dL (60-99); HDL Cholesterol 32 mg/dL (>40); LDL Cholesterol Calculated 96 mg/dL (<100); Potassium 3.7 mmol/L (3.3-5.1); Sodium 142 mmol/L (135-145); Total Protein 7.1 g/dL (6.5-8.0); Triglycerides 69 mg/dL (<150)
[2025-02-09 11:56] LABS: HBS Num1 0.75 mIU/mL (0-7.99); HBc Num1 0.08 S/CO (0.00-0.79); HBsAGNum1 0.42 S/CO (0.00-0.99); Hepatitis B Core Antibody Nonreactive (Nonreactive); Hepatitis B Surface Antigen Negative (Negative); ~Hepatitis B Surface Antibody NONREACTIVE (Nonreactive)
[2025-02-09 12:05] LABS: Folate 7.6 ng/mL (> or = 4.0); Vitamin B12 626 pg/mL (200-900)
[2025-02-11 21:13] LABS: TS Negative Control Passed; TS Panel A 0; TS Panel B 0; TS Positive Control Passed; TSpotTB Negative (Negative)
== END 2025-02-09 09:25 | disposition home or self-care (01) ==
LOC: HO.LAB 09:24
PROVIDERS: PCP Internal Medicine; Visit Provider Internal Medicine
DX: M54.50 Low back pain, unspecified (principal); Z11.1 Encounter for screening for respiratory tuberculosis; Z23 Encounter for immunization; E78.5 Hyperlipidemia, unspecified; E55.9 Vitamin D deficiency, unspecified; E53.8 Deficiency of other specified B group vitamins
CPT/HCPCS: 36415; 80053; 80061; 82306; 82607; 82746; 86481; 86704; 86706; 87340

== ENCOUNTER 2025-06-01 16:19 | Outpatient (AMB) | payer OTHER, SELFPAY ==
[2025-06-01 16:25] VITALS: BP 120/80; PULSE 88; RESP 18; TEMP 36.3; O2SAT 99; BMI 35.6
--- NOTE | 2025-06-01 16:25 | MHC.PC.OV ---
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 She first noticed the lump approximately two to three weeks ago, and it has since increased in size, causing discomfort and episodes of choking, particularly with solid foods. The patient has a history of constipation for over a year, which has worsened recently, and reports persistent fatigue that has been increasing over time. She also reports menopausal symptoms, including irregular menstrual cycles and periods of amenorrhea, which she attributes to menopause. [facility] Medical History Hearing loss Lip lesion Physical exam Mild recurrent major depression Class 2 obesity with body mass index (BMI) of 37.0 to 37.9 in adult Aphthous ulcer Atypical mole Obese GERD (gastroesophageal reflux disease) Syncope Low back pain Vertigo Hypovitaminosis D B12 deficiency Insomnia Depression with anxiety Surgical History H/O colonoscopy History of tooth extraction History of laparoscopic cholecystectomy History of section History of tubal ligation Family History Father CHF (congestive heart failure) Myocardial infarction Diabetes Mother Diabetes Hypertension Family/Other FH: uterine cancer Leukemia Social History Household Members: Family Housing: Apartment Are you a primary resident care aid to a significant other at home: No Do you presently have visiting nurse or other home services: No Alcohol intake: current Alcohol intake frequency: a few times a month Alcohol type: beer and wine Patient Tobacco Use Status: Former Tobacco user Tobacco use type: Cigarette Cigarette Packs Per Day: 1 Years Smoked: 5 e-Cigarette/Vaping Use: Never Used Second Hand Smoke Exposure: No Advance Directives Date on File: 06/16/23 service: No Current occupational status: employed Current occupation: [employer] Current occupational exposures/hazards: No Cognitive needs: No Hearing needs: No Vision needs: No Female Reproductive History Menstrual Age of Menarche: 9 Questionnaire PHQ-9 Over the last 2 weeks, how often have you been bothered by any of the following problems? 1. Little interest or pleasure in doing things: several days 2. Feeling down, depressed, or hopeless: several days 3. Trouble falling or staying asleep, or sleeping too much: more than half the days 4. Feeling tired or having little energy: more than half the days 5. Poor appetite or overeating: more than half the days 6. Feeling bad about yourself - or that you are a failure or have let yourself or your family down: more than half the days 7. Trouble concentrating on things, such as reading the newspaper or watching television: more than half the days 8. Moving or speaking so slowly that other people could have noticed. Or the opposite - being so fidgety or restless that you have been moving around a lot more than usual: not at all 9. Thoughts that you would be better off or of hurting yourself in some way: not at all Total score: 12 Depression Screening Interpretation: Positive Depression Screening Follow-up: Existing condition, In treatment, Community Mental Health Worker F/U and Follow-up Visit Requested Depression Screening Done: Yes 19895 - PHQ-9 Billing: Yes Source: Developed by Drs. Darren Bui, Gisele Ge, Edvin French and colleagues, with an educational primo from [employer]. Thrive Questionnaire Date Thrive assessed: 06/01/25 I am a: Patient What is your living situation today?: I have a steady place to live Within the past 12 months, did the food you bought not last and you didn't have the money to get more?: Sometimes True Within the past 12 months, did you worry whether your food would run out before you got money to buy more?: Often true Do you have trouble paying for medicines?: No Do you have trouble getting transportation to medical appointments?: No Do you have trouble paying your heating and electricity bill?: No Do you have trouble taking care of your child, family member or friend?: No Do you have trouble with day-to-day activities such as bathing, preparing meals, shopping, managing finances, etc.?: No Are you currently unemployed and looking for a job?: No Are you interested in more education?: No Please select the resources that you would like help with: Food Currently or been in a relationship where the following occur: I choose not to answer THRIVE Score: 2 AUDIT C Alcohol Use Questionnaire (AUDIT-C) 1. How often do you have a drink containing alcohol?: Monthly or less 2. How many drinks containing alcohol do you have on a typical day when you are drinking?: 1 or 2 3. How often do you have six or more drinks on one occasion?: Never Total Score: 1 Score Reviewed/Action Taken: No BENTON-7 AMB Questionnaire BENTON-7 Date BENTON - 7 assessed: 06/01/25 Feeling nervous, anxious, or on edge: 2 = More than half the days Not being able to stop or control worryin = More than half the days Worrying too much about different things: 2 = More than half the days Trouble relaxin = Several days Being so restless that it is hard to sit still: 2 = More than half the days Becoming easily annoyed or irritable: 2 = More than half the days Feeling afraid as if something awful might happen: 2 = More than half the days Total BENTON-7 score (0-4 normal; 5-9 mild; 10-14 moderate; 15-21 severe): 13 Source: Developed by Drs. Darren Bui, Gisele Ge, Edvin French and colleagues, with an educational primo from [employer]. BENTON-7 Assessment Billing BENTON-7 Assessment Tool: BENTON-7 Assessment 13322 Review of Systems Const Details: Positives besides what was mentioned in HPI are in BOLD Constitutional: No Weight Change, No Fever, No Chills, No Night Sweats, No Fatigue, No Malaise ENT/Mouth: No Hearing Changes, No Ear Pain, No Nasal Congestion, No Sinus Pain, No Hoarseness, No sore throat, No Rhinorrhea, No Swallowing Difficulty Eyes: No Eye Pain, No Swelling, No Redness, No Foreign Body, No Discharge, No Vision Changes Cardiovascular: No Chest Pain, No SOB, No PND, No Dyspnea on Exertion, No Orthopnea, No Claudication, No Edema, No Palpitations Respiratory: No Cough, No Sputum, No Wheezing, No Smoke Exposure, No Dyspnea Gastrointestinal: No Nausea, No Vomiting, No Diarrhea, No Constipation, No Pain, No Heartburn, No Anorexia, No Dysphagia, No Hematochezia, No Melena, No Flatulence, No Jaundice Genitourinary: No Dysmenorrhea, No DUB, No Dyspareunia, No Dysuria, No Urinary Frequency, No Hematuria, No Urinary Incontinence, No Urgency, No Flank Pain, No Urinary Flow Changes, No Hesitancy Musculoskeletal: No Arthralgias, No Myalgias, No Joint Swelling, No Joint Stiffness, No Back Pain, No Neck Pain, No Injury History Skin: No Skin Lesions, No Pruritis, No Hair Changes, No Breast/Skin Changes, No Nipple Discharge Neuro: No Weakness, No Numbness, No Paresthesias, No Loss of Consciousness, No Syncope, No Dizziness, No Headache, No Coordination Changes, No Recent Falls Psych: No Anxiety/Panic, No Depression, No Insomnia, No Personality Changes, No Delusions, No Rumination, No SI/HI/AH/VH, No Social Issues, No Memory Changes, No Violence/Abuse Hx., No Eating Concerns Heme/Lymph: No Bruising, No Bleeding, No Transfusions History, No Lymphadenopathy Endocrine: No Polyuria, No Polydipsia, No Temperature Intolerance Physical exam (Primary Care) Vital Signs: Last Vital Signs Temp 97.3 F 06/01/25 16:25 Pulse 88 06/01/25 16:25 Resp 18 06/01/25 16:25 BP 120/80 06/01/25 16:25 Pulse Ox 99 06/01/25 16:25 Oxygen Delivery Method Room Air 06/01/25 16:25 BMI result Body Mass Index 35.6 Tobacco/Smoking Status: Tobacco use Status Tobacco use date assessed 06/01/25 06/01/25 16:33 Patient Tobacco Use Status Former Tobacco user 06/01/25 16:33 Tobacco use type Cigarette 06/01/25 16:33 e-Cigarette/Vaping Use Never Used 06/01/25 16:33 PHQ-9: PHQ-9 Score PHQ-9: Total score 12 06/01/25 16:38 Depression Screening Interpretation: Positive Depression Screening Follow-up: Existing condition, In treatment, Community Mental Health Worker F/U and Follow-up Visit Requested Thrive Assessment: Date of Thrive Assessment Date Thrive assessed 06/01/25 06/01/25 16:33 Currently or been in a relationship where the following occur: I choose not to answer Const Other: Pertinent findings are in BOLD GENERAL APPEARANCE NAD, activity normal for age, well developed/ well nourished, no cyanosis, pallor, or diaphoresis. EYES lids/conjunctiva normal. EARS/NOSE/THROAT Mucous membranes moist, nares normal, lips/teeth normal uvula midline without oral pharyngeal erythema, exudate or swelling TMs normal bilaterally. No lymphangitis/lymphedema. HEAD/NECK normocephalic atraumatic, no facial trauma, neck is supple.Mild Thyroid enlargement. RESPIRATORY respiratory effort normal, speaks in full sentences, no tripod position, no accessory muscle use. Lungs clear to auscultation without rhonchi, wheezes, rales CARDIAC Regular rate and rhythm, no edema. ABDOMINAL Soft, ND/NT. No evidence of fluid wave. No pulsatile masses on exam, rebound tenderness, Ruiz sign or pain over Mcburney's point. MUSCLES/EXTREMITIES No abnormal range of motion, no swelling. SKIN Warm, pink and dry. No rashes, dermatoses, petechiae or lesions. NEUROLOGICAL Speech is clear and appropriate. Normal level of consciousness. Gait and coordination are normal. 5/5 strength in all extremities. PSYCH Normal mood and affect. Judgement/competence is appropriate Coding Level of Care Code Est Pt Level 2 (52603) Diagnoses Choking, initial encounter T17.308A Encounter type: initial encounter Lump in neck R22.1 Constipation K59.00 Additional Codes BENTON-7 Assessment Billing - BENTON-7 Assessment Tool: BENTON-7 Assessment 23455 ([id number]) PHQ-9 - 66988 - PHQ-9 Billing: Yes ([id number]) Assessment & Plan Assessment & Plan (1) Choking: Code(s): T17.308A - Unspecified foreign body in larynx causing other injury, initial encounter Category: Medical Qualifiers: Encounter type: initial encounter Qualified Code(s): T17.308A - Unspecified foreign body in larynx causing other injury, initial encounter Plan: We will proceed with Thyroid evaluation. If thyroid US is negative we will refer patient to GI for upper endoscopy. (2) Lump in neck: Code(s): R22.1 - Localized swelling, mass and lump, neck Category: Medical Plan: TSH, reflex free T4. Thyroid US. RTC 1 week. (3) Constipation: Code(s): K59.00 - Constipation, unspecified Category: Medical Plan: Might be a sign of thyroid dysfunction. We will evaluate with thyroid studies. If no Thyroid abnormality we will provide symptomatic treatment. Plan I discussed with the patient the potential causes of her symptoms, including thyroid dysfunction, and the plan to perform an ultrasound and thyroid function tests. We also talked about the possibility of an upper endoscopy if initial tests are inconclusive. The patient was informed about the follow-up visit in a week to review test results and discuss further management.
--- OUTSIDE RECORDS SUMMARY | 2025-06-01 18:55 | XMS_ITS | Patient Health Record ---
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 Name Role Phone Pili Connell Primary Care Provider UnavailRoman Campbell Jr Unavailable [phone] Allergies No Known Allergies Reason For Referral [...] Problem Status W/U Status Risk Notes Problem [id number] Ischemic colitis (K55.9) Active confirmed Plan Of Treatment Future Test Test Name Order Date COLONOSCOPY 08/31/2023 Insurance Providers Payer Name Payer Address Payer Phone Subscriber Number Group Number Insured Name Patient Relationship to Insured Coverage Start Date Coverage End Date [facility] [address] [address] [place], [place] [id number] TACHO ROMAN Self - patient is the insured Medical (General) History Medical History History ICD Code Ischemic colitis, 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
== END 2025-06-01 16:57 | disposition home or self-care (01) ==
PROVIDERS: PCP Internal Medicine; Visit Provider Internal Medicine
DX: T17.308A Unspecified foreign body in larynx causing other injury, initial encounter (principal); R22.1 Localized swelling, mass and lump, neck; K59.00 Constipation, unspecified

== ENCOUNTER → 2025-06-01 16:19 | Outpatient (BNVA) | payer OTHER, SELFPAY | PROVIDERS: PCP Internal Medicine | DX: T17.308A Unspecified foreign body in larynx causing other injury, initial encounter (principal); R22.1 Localized swelling, mass and lump, neck; K59.00 Constipation, unspecified; Z13.31 Encounter for screening for depression; Z13.39 Encounter for screening examination for other mental health and behavioral disorders | CPT/HCPCS: 96127; 99212 ==

== ENCOUNTER 2025-08-01 09:18 | Outpatient (REF) | payer OTHER, SELFPAY ==
--- OUTSIDE RECORDS SUMMARY | 2025-08-01 10:08 | XMS_ITS | Patient Health Record ---
Author Organization [facility] Address [address] [place] [address] Care Team Providers Care Recruitment Specialist Name Role Phone Pili Connell Primary Care Provider UnavailRoman Campbell Jr Unavailable Allergies No Known Allergies Reason For Referral No Information Medications Medication SIG (Take, Route, Frequency, Duration) Notes Start Date End Date Status Ibuprofen 800 MG Oral; Duration: 30 Active MiraLax (colon prep) 17 GM/SCOOP mixed with Gatorade or Crystal Light Orally begin at 5:00 p.m. the day before the procedure; Duration: 1 day 08/31/2023 Active Dicyclomine HCl 20 MG 1 tablet Orally 2- 4 times a day 08/31/2023 Active Escitalopram Oxalate 20 MG TOME DAI TABL ETA TODOS LOS D Oral; Duration: 90 Active busPIRone HCl 15 MG Oral; Duration: 90 Active Immunizations Vaccine Route Administration Date [...] Problem Status W/U Status Risk Notes Problem Ischemic colitis ([id number]) Ischemic colitis (K55.9) Active confirmed Plan Of Treatment Future Test Test Name Order Date COLONOSCOPY 08/31/2023 Insurance Providers Payer Name Payer Address Payer Phone Subscriber Number Group Number Insured Name Patient Relationship to Insured Coverage Start Date Coverage End Date [facility] [address] [address] [place], [place] [id number] TACHO ROMAN Self - patient is the insured Medical (General) History Medical History History ICD Code Ischemic colitis, 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
== END 2025-08-01 09:19 | disposition home or self-care (01) ==
LOC: HO.LAB 09:18
PROVIDERS: PCP Internal Medicine; Visit Provider Internal Medicine
DX: R22.1 Localized swelling, mass and lump, neck (principal)
CPT/HCPCS: 36415; 84443

== ENCOUNTER 2025-08-28 08:39 | Outpatient (AMB) | payer OTHER, SELFPAY ==
--- NOTE | 2025-08-28 08:44 | MHC.OFFWIV ---
Intake Vital Signs 08/28/25 08:45 Height 5 ft 7 in Weight 226 lb BMI 35.4 BP 128/89 Blood Pressure Location Rt brachial Position Sitting Respiration 18 Pulse 103 H Pulse Source Pulse Oximeter Temp 97.9 F Temp Source Oral Pulse Oximetry (%) 100 Oxygen Delivery Method Room Air Intake Visit Reasons: EP-excessive of vaginal bleeding, dizziness, sob Intake Note: Armenian speaking patient presenting with excessive vaginal bleeding producing clots x1 mo after spotting for 1 week and sometimes experiences abdominal cramping, requiring changing of menses pads 5-6 times per day, also c/o increasing dizziness, fatigue and SOB beginning that [address] Blake for it security manager. Patient Tobacco Use Status: Former Tobacco user Allergies No Known Allergies Allergy (Verified 08/28/25 08:47) Do you need a note to return to daycare/school/sports/work: No HPI HPI Comments History of Present Illness Details 50 y/o Armenian-speaking female presents to the walk-in clinic with abnormal uterine bleeding x ~1 month. States bleeding began as light spotting and has progressively worsened to heavy flow with clots. Reports she is changing pads every 2 hours, recently switched to super pads and even Pampers, which become saturated. Associated symptoms: fatigue, weakness, headaches, dizziness. Denies desire; sexually active with , has children, no desire for more. Has not seen Leather Toggler in >2 years. No mention of similar prior episodes. No known history of fibroids or bleeding disorders. [facility] Medical History (Updated 08/28/25 @ 09:08 by Cassie Jaeger NP) Abnormal uterine bleeding (AUB) Hearing loss Lip lesion Physical exam Mild recurrent major depression Class 2 obesity with body mass index (BMI) of 37.0 to 37.9 in adult Aphthous ulcer Atypical mole Obese GERD (gastroesophageal reflux disease) Syncope Low back pain Vertigo Hypovitaminosis D B12 deficiency Insomnia Depression with anxiety Surgical History H/O colonoscopy History of tooth extraction History of laparoscopic cholecystectomy History of section History of tubal ligation Family History Father CHF (congestive heart failure) Myocardial infarction Diabetes Mother Diabetes Hypertension Family/Other FH: uterine cancer Leukemia Social History Household Members: Family Housing: Apartment Are you a primary career development engineer to a significant other at home: No Do you presently have visiting nurse or other home services: No Alcohol intake: current Alcohol intake frequency: a few times a month Alcohol type: beer and wine Patient Tobacco Use Status: Former Tobacco user Tobacco use type: Cigarette Cigarette Packs Per Day: 1 Years Smoked: 5 e-Cigarette/Vaping Use: Never Used Second Hand Smoke Exposure: No Advance Directives Date on File: 06/16/23 service: No Current occupational status: employed 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 Current occupational exposures/hazards: No Cognitive needs: No Hearing needs: No Vision needs: No Female Reproductive History Menstrual Age of Menarche: 9 Review of Systems Const All systems reviewed & are unremarkable except as noted in HPI and below Physical Exam Vital Signs: Last Vital Signs Temp 97.9 F 08/28/25 08:45 Pulse 103 H 08/28/25 08:45 Resp 18 08/28/25 08:45 BP 128/89 08/28/25 08:45 Pulse Ox 100 08/28/25 08:45 Oxygen Delivery Method Room Air 08/28/25 08:45 BMI result Body Mass Index 35.4 Const General: no acute distress Orientation/consciousness: patient oriented x3 Limitations: language barrier Resp Effort & Inspection: normal respiratory effort Cardio Rate: regular rate General: Yes deferred Neuro General: patient oriented x3, gait normal and moves all extremities Assessment & Plan Assessment & Plan (1) Abnormal uterine bleeding (AUB): Code(s): N93.9 - Abnormal uterine and vaginal bleeding, unspecified Plan: Abnormal Uterine Bleeding (AUB) ? 1 month duration, progressively worsening to heavy bleeding with clots. High concern for AUB-H (heavy bleeding); possible etiologies include structural causes (fibroids, polyps), anovulatory cycles/perimenopause, endometrial hyperplasia, or endocrine causes. Symptomatic anemia ? likely secondary to heavy blood loss; patient reports fatigue, weakness, dizziness, headaches. Urgent Leather Toggler referral for evaluation and management of AUB @ [facility] Reviewed warning signs: soaking >1 pad/hour, worsening dizziness/presyncope, shortness of breath, palpitations ? instructed to go directly to ED if these occur. Coding Level of Care Code Est Pt Level 4 (72860) Diagnoses Abnormal uterine bleeding (AUB) N93.9 Time Spent (min) 20
[2025-08-28 08:45] VITALS: BP 128/89; PULSE 103; RESP 18; TEMP 36.6; O2SAT 100; BMI 35.4
== END 2025-08-28 09:23 | disposition home or self-care (01) ==
PROVIDERS: PCP Internal Medicine; Visit Provider Nurse Practitioner Family
DX: N93.9 Abnormal uterine and vaginal bleeding, unspecified (principal)

== ENCOUNTER → 2025-08-28 08:39 | Outpatient (BNVA) | payer OTHER, SELFPAY | PROVIDERS: PCP Internal Medicine; Visit Provider Nurse Practitioner Family | DX: N93.9 Abnormal uterine and vaginal bleeding, unspecified (principal); R42 Dizziness and giddiness; R53.83 Other fatigue; R06.02 Shortness of breath; Z98.51 Tubal ligation status | CPT/HCPCS: 99212 ==

== ENCOUNTER 2025-09-01 14:49 | Outpatient (AMB) | payer OTHER, SELFPAY ==
--- NOTE | 2025-09-01 14:51 | A.OFFPC_ITS ---
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 Name: [id number]/Jasmyne Accompanied by: Self / Same As Patient Allergies No Known Allergies Allergy (Verified 09/01/25 15:11) Medication List - Last Reconciled 09/01/25 by PAULETTE Ng buspirone 15 mg PO TID cetirizine (Allergy Relief (cetirizine)) 10 mg PO DAILY PRN 90 days cholecalciferol (vitamin D3) (Vitamin D3) 50 mcg PO DAILY 90 days escitalopram oxalate 20 mg PO DAILY ibuprofen 800 mg PO Q8H PRN 30 days incontinence pad, liner, disp Use 1 pand once a day lidocaine 5% (Lidoderm) 1 patch topical DAILY PRN omeprazole 20 mg PO DAILY 90 days zolpidem 5 mg PO BEDTIME PRN Tobacco use date assessed: 09/01/25 Dental Screening Dental Screen Date: 09/01/25 Did you have a dental visit in the last 12 months?: Yes Did you have a dental problem in the last 6 months where you did not have access to dental care?: No Was dental information given to patient?: Patient has dentist HPI PE HPI Details Dentist: up to date Eye: about 3 years for, needs to make an appt Snellen: Right: Left: Corrected vision: yes, glasses STI screening: Colonoscopy: 09/2024 Pap Smer: obyn on the at [facility] mammogram: 2022 PHQ-9: Flu: no COVID: x2 Tdap: 2023 Diet:regular Exercise: no exercise The patient is a 50 year old female presenting for a physical examination. She was recently hospitalized on Thursday and Thursday due to an irregular menstrual cycle and low hemoglobin, which required a blood transfusion and iron supplementation. The patient has a history of uterine fibroids, which were noted on a previous evaluation; however, a more recent assessment indicated she no longer had them. During her recent hospitalization, fibroids were again mentioned, though she was told they may have decreased in size. She also has a history of an ovarian cyst on the right side. She sees an MEDICAL PAYMENT POSTER from a different facility and has an upcoming appointment for a biopsy. The patient reports constipation, with bowel movements occurring once a day to once every other day, requiring straining. She has a history of a severe bowel blockage last year that required hospitalization. She reports lately experiencing itching in her private area and denies any foul odor. She has also experienced episodes of heartburn with a burning sensation, intense pain behind her ribs, and nausea when certain foods are eaten. She uses omeprazole for these symptoms, but only after they have started. Regarding health maintenance, her last colonoscopy was in September of this year and was normal. She had an eye exam about three years ago and feels her vision with glasses is worsening, causing headaches. She has not seen a dentist within the last year. She has received two COVID-19 vaccines and had a tetanus shot in 2023. She has a history of low vitamin D and has been taking supplements. Health Maintenance A comprehensive panel of fasting labs will be ordered to check blood counts, cholesterol, and vitamin D levels. The patient was advised to get a flu shot and an updated eye exam, as it has been three years and she is experiencing worsening vision and headaches. A follow-up appointment with her PCP is scheduled for six months. Social History - Exercise: The patient does not current ly work out or follow an exercise regimen. - Diet: The patient follows a regular di et. - Diet: With her and son, she is trying to consume natural juices with fruits and herbs to improve digestion. Results - Labs: Patient had recent blood tests d uring hospitalization on Thursday and Thursday, which showed low hemoglobin. - Diagnostics: A colonoscopy in September of this year was normal, without evidence of hemorrhoids. [facility] Medical History Abnormal uterine bleeding (AUB) Hearing loss Lip lesion Physical exam Mild recurrent major depression Class 2 obesity with body mass index (BMI) of 37.0 to 37.9 in adult Aphthous ulcer Atypical mole Obese GERD (gastroesophageal reflux disease) Syncope Low back pain Vertigo Hypovitaminosis D B12 deficiency Insomnia Depression with anxiety Surgical History H/O colonoscopy History of tooth extraction History of laparoscopic cholecystectomy History of section History of tubal ligation Family History Father CHF (congestive heart failure) Myocardial infarction Diabetes Mother Diabetes Hypertension Family/Other FH: uterine cancer Leukemia Social History Household Members: Family Housing: Apartment Are you a primary rn progressive care unit to a significant other at home: No Do you presently have visiting nurse or other home services: No Alcohol intake: current Alcohol intake frequency: a few times a month Alcohol type: beer and wine Patient Tobacco Use Status: Former Tobacco user Tobacco use type: Cigarette Cigarette Packs Per Day: 1 Years Smoked: 5 e-Cigarette/Vaping Use: Never Used Second Hand Smoke Exposure: No Advance Directives Date on File: 06/16/23 service: No Current occupational status: employed Current occupation: [employer] Current occupational exposures/hazards: No Cognitive needs: No Hearing needs: No Vision needs: No Female Reproductive History Menstrual Age of Menarche: 9 Questionnaire Thrive Questionnaire Date Thrive assessed: 09/01/25 I am a: Patient What is your living situation today?: I have a steady place to live Within the past 12 months, did the food you bought not last and you didn't have the money to get more?: Sometimes True Within the past 12 months, did you worry whether your food would run out before you got money to buy more?: Often true Do you have trouble paying for medicines?: No Do you have trouble getting transportation to medical appointments?: No Do you have trouble paying your heating and electricity bill?: No Do you have trouble taking care of your child, family member or friend?: No Do you have trouble with day-to-day activities such as bathing, preparing meals, shopping, managing finances, etc.?: No Are you currently unemployed and looking for a job?: No Are you interested in more education?: No Please select the resources that you would like help with: Food Currently or been in a relationship where the following occur: I choose not to answer THRIVE Score: 2 BENTON-7 AMB Questionnaire BENTON-7 Date BENTON - 7 assessed: 06/01/25 Source: Developed by Drs. Darren Bui, Gisele BEdvin Pena and colleagues, with an educational primo from [employer]. Review of Systems Narrative Review of Systems - Eyes: Reports worsening vision with current glasses. Denies any other changes. - Cardiovascular: Denies chest pain. Reports shortness of breath, which she attributes to her low hemoglobin. - Gastrointestinal: Reports constipation with straining, having a bowel movement once a day or every other day, and a history of bowel blockage. Reports increa sed gas, a burning sensation in the upper abdomen, intense pain behind the ribs, and nausea when eating certain foods. Denies diarrhea. Denies blood in stool. - Genitourinary: Reports irregular menstrual cycle. Reports recent onset of itching in her private area. - Neurological: Reports having headaches. Const Denies headache(s) Eyes Reports change in vision (With current glasses) and Denies loss of vision ENT Denies vertigo, Denies dizziness, Denies headache(s) and Denies sore throat Card Denies chest pain, Denies leg edema and Denies lightheadedness Resp Denies cough, Denies hemoptysis and Denies wheezing GI Denies abdominal pain, Denies melena, Reports bloating, Reports constipation, Reports excessive flatus, Reports heartburn, Denies diarrhea, Reports nausea (With certain foods) and Denies vomiting Reports abnormal vaginal bleeding, Denies urinary frequency, Denies dysuria, Denies urinary urgency and Reports vaginal pruritus Musc Denies arthralgias, Denies joint swelling, Denies numbness and Denies tingling Neuro Denies Abnormal speech present, Denies behavioral changes, Denies vertigo, Denies dizziness, Denies headache(s), Denies loss of vision, Denies memory loss, Denies numbness and Denies tingling Psych Denies anxiety, Denies behavioral changes, Denies depression, Denies memory loss and Denies panic attacks Shaquille/Lymph Denies easy bleeding and Denies easy bruising Aller/Immun Denies wheezing Physical exam (Primary Care) Vital Signs: Last Vital Signs Pulse 67 09/01/25 14:52 Resp 18 09/01/25 14:52 BP 92/66 09/01/25 14:52 Pulse Ox 100 09/01/25 14:52 Oxygen Delivery Method Room Air 09/01/25 14:52 BMI result Body Mass Index 35.4 Tobacco/Smoking Status: Tobacco use Status Tobacco use date assessed 09/01/25 09/01/25 14:55 Patient Tobacco Use Status Former Tobacco user 09/01/25 14:55 Tobacco use type Cigarette 09/01/25 14:55 e-Cigarette/Vaping Use Never Used 09/01/25 14:55 Thrive Assessment: Date of Thrive Assessment Date Thrive assessed 09/01/25 09/01/25 14:55 Currently or been in a relationship where the following occur: I choose not to answer Narrative Physical Exam - Constitutional: Well-appearing. - Eyes: Extraocular movements intact. - Lungs: Clear to auscultation bilaterally. - Cardiovascular: Regular rhythm. - Abdomen: Soft, non-tender on gentle palpation. Nausea elicited with palpation of the epigastric region. Const General: healthy appearing, no acute distress, alert and awake Nutritional Appearance: well nourished Orientation/consciousness: oriented to person, oriented to place and oriented to time HENMT Ears: TM's normal bilaterally General nose exam: Normal nasal mucous membranes and turbinates present Eyes Conjunctivae: conjunctivae normal Sclerae: sclerae normal Pupils: Equal, round and reactive pupils present Neck Neck: Yes no lymphadenopathy and Yes no JVD Thyroid: Thyroid normal Carotids: no bruits Resp Effort & Inspection: normal respiratory effort and not tachypneic Auscultation: no crackles, no rales, no rhonchi and no wheezes Cardio Rate: regular rate Rhythm: regular rhythm Heart sounds: no murmurs and normal S1 and S2 GI Palpation (GI): Soft to palpation, nontender, no hepatomegaly and no splenomegaly Auscultation: normal bowel sounds General: Yes no CVA tenderness OB/external & speculum: Deferred OB/external & speculum exam Back/Spine/Pelvis Back: no CVA tenderness Skin General skin exam: no rashes or lesions noted and dry skin Neuro General: oriented to person, oriented to place and oriented to time Cranial nerves: Yes CN's II-XII intact bilaterally, Yes Equal, round and reactive pupils present and Yes Nystagmus not present Speech: No Abnormal speech present Gait exam (Neuro): Normal gait present Motor exam (neuro): 5/5 motor strength present throughout and no tremor noted Deep tendon reflexes (DTR's): Right triceps reflex intensity grade: 2+, Left triceps reflex intensity grade: 2+, Rt Biceps (C5, C6): 2+, Left biceps reflex intensity grade: 2+, Right brachioradialis reflex intensity grade: 2+, Left brachioradialis reflex intensity grade: 2+, Right patellar reflex intensity grade: 2+ and Left patellar reflex intensity grade: 2+ Extrem Right upper extremity: full ROM Left upper extremity: full ROM Right lower extremity: full ROM; no edema Left lower extremity: full ROM; no edema Psych Mental Status: mental status grossly normal Speech and movement: Normal speech and movement present Affect: normal affect Attitude: cooperative Thought process: Normal thought process present Coding Level of Care Code Est Pt Prev Care 40-64y(54276) Diagnoses Annual physical exam Z00.00 Choking, initial encounter T17.308A Encounter type: initial encounter Lump in neck R22.1 Constipation, unspecified constipation type K59.00 Constipation type: unspecified constipation type Other dietary vitamin B12 deficiency anemia D51.3 Anemia type: B12 deficiency Vitamin B12 deficiency anemia type: other dietary B12 deficiency Uterine leiomyoma, unspecified location D25.9 Uterine leiomyoma location: unspecified location Gastroesophageal reflux disease, unspecified whether esophagitis present K21.9 Esophagitis presence: esophagitis presence not specified Genital pruritus L29.3 Time Spent (min) 39 Assessment & Plan Assessment & Plan (1) Annual physical exam: Code(s): Z00.00 - Encounter for general adult medical examination without abnormal findings Category: Medical Plan: Preventative guidelines reviewed with the patient. No recent labs. Last mammogram in 2022, new order placed. Upcoming appointment for Pap smear on of this month at [facility]. (2) Choking: Code(s): T17.308A - Unspecified foreign body in larynx causing other injury, initial encounter Category: Medical Qualifiers: Encounter type: initial encounter Qualified Code(s): T17.308A - Un specified foreign body in larynx causing other injury, initial encounter Plan: We will proceed with Thyroid evaluation. If thyroid US is negative we will refer patient to GI for upper endoscopy. (3) Lump in neck: Code(s): R22.1 - Localized swelling, mass and lump, neck Category: Medical Plan: TSH, reflex free T4. Thyroid US. RTC 1 week. (4) Constipation: Code(s): K59.00 - Constipation, unspecified Category: Medical Qualifiers: Constipation type: unspecified constipation type Qualified Code(s): K59.00 - Constipation, unspecified Plan: The patient reports constipation and has a history of a bowel blockage requiring hospitalization. Straining can lead to hemorrhoids. To manage this, daily use of MiraLax is recommended to keep bowel movements regular and prevent constipation. The recommended starting dose is one capful mixed in 8 ounces of water daily, with the option to increase to twice daily if needed. Increasing fluid intake is also advised. A prescription for MiraLax will be provided (5) Anemia: Code(s): D64.9 - Anemia, unspecified Category: Medical Qualifiers: Anemia type: B12 deficiency Vitamin B12 deficiency anemia type: other dietary B12 deficiency Qualified Code(s): D51.3 - Other dietary vitamin B12 deficiency anemia Plan: The patient was recently hospitalized for low hemoglobin related to irregular menses, requiring a blood transfusion and iron. To ensure her blood count has stabilized, repeat labs will be ordered. (6) Uterine fibroid: Code(s): D25.9 - Leiomyoma of uterus, unspecified Category: Medical Qualifiers: Uterine leiomyoma location: unspecified location Qualified Code(s): D25.9 - Leiomyoma of uterus, unspecified Plan: The patient has a history of fibroids and an ovarian cyst. She has been advised to follow up with her MEDICAL PAYMENT POSTER for this issue and has an upcoming appointment for a biopsy (7) GERD (gastroesophageal reflux disease): Code(s): K21.9 - Gastro-esophageal reflux disease without esophagitis Category: Medical Qualifiers: Esophagitis presence: esophagitis presence not specified Qualified Code(s): K21.9 - Gastro-esophageal reflux disease without esophagitis Plan: The patient experiences symptoms of acid reflux, including burning pain and nausea. She has been using omeprazole reactively. It was advised to take omeprazole proactively in the morning on an empty stomach, at least 30 minutes before eating or drinking anything acidic like coffee or orange juice, to prevent symptoms (8) Genital pruritus: Code(s): L29.3 - Anogenital pruritus, unspecified Category: Medical Plan: The patient reports itching in her private area. Potential causes discussed include a change in soap, dry skin due to weather changes. Patient denies odor or drainage. A urine test will be performed to check for infection Plan Discussion Notes I reviewed the patient's recent hospitalization for anemia and discussed the importance of follow-up labs to monitor her blood count. I emphasized the need for her to continue follow-up with her MEDICAL PAYMENT POSTER for her fibroids. We discussed her issues with constipation and her history of a bowel blockage. I explained that chronic constipation and straining could lead to hemorrhoids and recommended daily use of MiraLax to prevent recurrence. I provided specific instructions on how to take MiraLax, starting with one dose daily and titrating up if necessary. Regarding her symptoms of acid reflux, I advised her to take omeprazole preventatively on an empty stomach in the morning rather than waiting for symptoms to start. I explained that this would make the medication more effective. I reviewed her health maintenance needs, including the need for an updated eye exam due to her worsening vision and headaches. I will order fasting labs, including a CBC, cholesterol panel, and vitamin D level, as well as a urinalysis to investigate her complaint of itching. We scheduled a follow-up appointment in six months. Patient Instructions - Take MiraLax every day to prevent constipation. Mix one capful in 8 ounces of water and drink it once a day. If you are still having trouble, you can take it twice a day. It is important to take this regularly to avoid another blockage. - For your acid reflux, take your omeprazole pill in the morning on an empty stomach, at least 30 minutes before you eat or drink anything. This will help prevent the heartburn from starting. - We are ordering blood tests to check your blood count, cholesterol, and vitamin D levels. You will need to fast (not eat or drink anything except water) before this test. - Please provide a urine sample today to check for any infection that might be causing itching. - It is important that you follow up with your MEDICAL PAYMENT POSTER doctor about your fibroid s. - Schedule an eye exam, as it has been three years and your vision is getting worse. - Consider getting a flu shot. - Your next appointment here will be in about six months. Orders: Orders UA CC w/rflx Micro + Cult 09/01/25 E53.8 - Deficiency of other specified B group vitamins, E55.9 - Vitamin D deficiency, unspecified, E66.09 - Other obesity due to excess calories, F33.0 - Major depressive disorder, recurrent, mild, F41.1 - Generalized anxiety disorder, F41.8 - Other specified anxiety disorders, Z00.00 - Encounter for general adult medical examination without abnormal findings, Z68.37 - Body mass index [BMI] 37.0-37.9, adult TSH reflex Free T4 09/01/25 E53.8 - Deficiency of other specified B group vitamins, E55.9 - Vitamin D deficiency, unspecified, E66.09 - Other obesity due to excess calories, F33.0 - Major depressive disorder, recurrent, mild, F41.1 - Generalized anxiety disorder, F41.8 - Other specified anxiety disorders, Z00.00 - Encounter for general adult medical examination without abnormal findings, Z68.37 - Body mass index [BMI] 37.0-37.9, adult Vitamin D 25-OH Total 09/01/25 E53.8 - Deficiency of other specified B group vitamins, E55.9 - Vitamin D deficiency, unspecified, E66.09 - Other obesity due to excess calories, F33.0 - Major depressive disorder, recurrent, mild, F41.1 - Generalized anxiety disorder, F41.8 - Other specified anxiety disorders, Z00.00 - Encounter for general adult medical examination without abnormal findings, Z68.37 - Body mass index [BMI] 37.0-37.9, adult MM tomosynthesis screening BI Today Z12.31 - Encounter for screening mammogram for malignant neoplasm of breast Complete Blood Count Auto Diff 09/01/25 E53.8 - Deficiency of other specified B group vitamins, E55.9 - Vitamin D deficiency, unspecified, E66.09 - Other obesity due to excess calories, F33.0 - Major depressive disorder, recurrent, mild, F41.1 - Generalized anxiety disorder, F41.8 - Other specified anxiety disorders, Z00.00 - Encounter for general adult medical examination without abnormal findings, Z68.37 - Body mass index [BMI] 37.0-37.9, adult Comprehensive [place]. Panel Fast 09/01/25 E53.8 - Deficiency of other specified B group vitamins, E55.9 - Vitamin D deficiency, unspecified, E66.09 - Other obesity due to excess calories, F33.0 - Major depressive disorder, recurrent, mild, F41.1 - Generalized anxiety disorder, F41.8 - Other specified anxiety disorders, Z00.00 - Encounter for general adult medical examination without abnormal findings, Z68.37 - Body mass index [BMI] 37.0-37.9, adult Lipid Panel 09/01/25 E53.8 - Deficiency of other specified B group vitamins, E55.9 - Vitamin D deficiency, unspecified, E66.09 - Other obesity due to excess calories, F33.0 - Major depressive disorder, recurrent, mild, F41.1 - Generalized anxiety disorder, F41.8 - Other specified anxiety disorders, Z00.00 - Encounter for general adult medical examination without abnormal findings, Z68.37 - Body mass index [BMI] 37.0-37.9, adult Vitamin B12 and Folate 09/01/25 E53.8 - Deficiency of other specified B group vitamins Medications: New polyethylene glycol 3350 (Miralax) 17 grams PO DAILY 238 grams 3RF
[2025-09-01 14:52] VITALS: BP 92/66; PULSE 67; RESP 18; O2SAT 100; BMI 35.4
--- OUTSIDE RECORDS SUMMARY | 2025-09-01 19:55 | XMS_ITS | Patient Health Record ---
Author Organization [facility] Address [address] [place] [address] Care Team Providers Care Board Certified Orthodontist Name Role Phone Pili Connell Primary Care Provider UnavailRoman Campbell Jr Unavailable [phone] Allergies No Known Allergies Reason For Referral No Information Medications Medication SIG (Take, Route, Frequency, Duration) Notes Start Date End Date Status Ibuprofen 800 MG Tablet Oral; Duration: 30 Active MiraLax (colon prep) 17 GM/SCOOP Powder mixed with Gatorade or Crystal Light Orally begin at 5:00 p.m. the day before the procedure; Duration: 1 day 08/31/2023 Active Dicyclomine HCl 20 MG Tablet 1 tablet Orally 2-4 times a day 08/31/2023 Active Escitalopram Oxalate 20 MG Tablet TOME DAI TABLETA TODOS LOS D Oral; Duration: 90 Active busPIRone HCl 15 MG Tablet Oral; Duration: 90 Active Immunizations Vaccine Route Administration Date Status Comme nts Influenza Unknown 08/21/2023 Administered Social History Tobacco Use: Social History Observation Description Date Details (start date - stop date) Never Smoker NA - NA Social History Drugs/Alcohol: Social Info Question Answer Notes Alcohol Screen Did you have a drink containing alcohol in the past year? Yes How often did you have a drink containing alcohol in the past year? Monthly or less (1 point) How many drinks did you have on a typical day when you were drinking in the past year? 5 or 6 drinks (2 points) How often did you have 6 or more drinks on one occasion in the past year? Less than monthly (1 point) Points 4 Interpretation Positive Tobacco Use: Social Info Question Answer Notes Tobacco Use/Smoking Patient is a nonsmoker Additional Details Category Social Info Options Details Miscellaneous: Marital status: Occupation: unemployed Problems Problem Type SNOMED Code ICD Code Onset Dates Problem Status W/U Status Risk Notes Problem Ischemic colitis (70090099) Ischemic colitis (K55.9) Active confirmed Plan Of Treatment Future Test Test Name Order Date COLONOSCOPY 08/31/2023 Insurance Providers Payer Name Payer Address Payer Phone Subscriber Number Group Number Insured Name Patient Relationship to Insured Coverage Start Date Coverage End Date [facility] [address] [address] [place], [place] [id number] TACHO ROMAN Self - patient is the insured Medical (General) History Medical History History ICD Code Ischemic colitis, 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
== END 2025-09-01 16:03 | disposition home or self-care (01) ==
LOC: HO.HMCH 14:50
PROVIDERS: PCP Internal Medicine
DX: Z00.00 Encounter for general adult medical examination without abnormal findings (principal); T17.308A Unspecified foreign body in larynx causing other injury, initial encounter; R22.1 Localized swelling, mass and lump, neck; K59.00 Constipation, unspecified; D51.3 Other dietary vitamin B12 deficiency anemia; D25.9 Leiomyoma of uterus, unspecified; K21.9 Gastro-esophageal reflux disease without esophagitis; L29.3 Anogenital pruritus, unspecified

== ENCOUNTER → 2025-09-01 14:49 | Outpatient (BNVA) | payer OTHER, SELFPAY | PROVIDERS: PCP Internal Medicine | DX: Z00.00 Encounter for general adult medical examination without abnormal findings (principal); R22.1 Localized swelling, mass and lump, neck; K59.00 Constipation, unspecified; D51.3 Other dietary vitamin B12 deficiency anemia; D25.9 Leiomyoma of uterus, unspecified; K21.9 Gastro-esophageal reflux disease without esophagitis; L29.3 Anogenital pruritus, unspecified; T17.308A Unspecified foreign body in larynx causing other injury, initial encounter | CPT/HCPCS: 99396 ==

== ENCOUNTER 2025-09-13 08:19 | Outpatient (REF) | payer OTHER, SELFPAY ==
--- NOTE | ~2025-09-13 | US_ITS ---
EXAMINATION: US THYROID CLINICAL INFORMATION: R22.1 - Localized swelling, mass and lump, neck COMPARISON: None available. TECHNIQUE: Linear transducer grayscale and color Doppler examination with attention to the region of the thyroid. FINDINGS: SIZE: Measurements of the thyroid lobes and nodules are given in sagittal, anteroposterior and transverse dimensions respectively. Right Thyroid Lobe: 4.5 x 1.3 x 1.6 cm, volume 4.9 ml. Parenchyma: The gland echotexture is homogeneous. Thyroid vascularity is normal. Left Thyroid Lobe: 3.8 x 1.2 x 1.1 cm, volume 2.6 ml. Parenchyma: The gland echotexture is homogeneous. Thyroid vascularity is normal. Isthmus: 0.5 cm in maximum AP dimension. Estimated total number of nodules greater than or equal to 1 cm: 0. General Forecaster nodules are described as follows: 1. Location: isthmus. Size: 0.4 x 0.4 x 0.4 cm Nodule characteristics: Composition: Solid (2). Echogenicity: Hypoechoic (2). Shape: Not taller than wide (0). Margins: Ill-defined (0). Echogenic Foci: None (0). ACR TI-RADS total points: 4 ACR TI-RADS category: 4 NODES: No lymphadenopathy is seen in the tissue surrounding the thyroid gland. US/US thyroid IMPRESSION: Nodule in the isthmus. In accordance with ACR TI-RADS, no dedicated imaging follow-up or FNA required. ACR TI-RADS RECOMMENDATION REFERENCE: Ultrasound-guided fine-needle aspiration, followup ultrasound, no further follow up. * TR1 (0 point) and TR2 (2 points): No FNA or follow up. * TR3 (3 points): FNA if more than or equal to 2.5 cm in maximum dimension, followup ultrasound in 1, 3 and 5 years if 1.5 to 2.4 cm in maximum dimension. * TR4 (4-6 points): FNA if more than or equal to 1.5 cm in maximum dimension, followup ultrasound in 1, 2, 3 and 5 years if 1 to 1.4 cm in maximum dimension. * TR5 (more than or equal to 7 points): FNA if more than or equal to 1 cm in maximum dimension, followup ultrasound every year for 5 years if 0.5 to 0.9 cm in maximum dimension. * TR3, TR4 or TR5 nodules that are below the size threshold for followup receive no follow up. Electronically signed by: Kirsten Beauchamp MD 09/13/2025 09:27 AM [facility] JA[facility]
--- OUTSIDE RECORDS SUMMARY | 2025-09-13 08:22 | XMS_ITS | Patient Health Record ---
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 Name Role Phone Pili Connell Primary [...] W/U Status Risk Notes Problem Ischemic colitis ([id number]) Ischemic colitis (K55.9) Active confirmed Plan Of Treatment Future Test Test Name Order Date COLONOSCOPY 08/31/2023 Insurance Providers Payer Name Payer Address Payer Phone Subscriber Number Group Number Insured Name Patient Relationship to Insured Coverage Start Date Coverage End Date [facility] [address] [address] [place], [place] [id number] TACHO ROMAN Self - patient is the insured Medical (General) History Medical History History ICD Code Ischemic colitis, 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
== END 2025-09-13 08:20 | disposition home or self-care (01) ==
LOC: HO.US 08:19
PROVIDERS: PCP Internal Medicine; Visit Provider Internal Medicine
DX: R22.1 Localized swelling, mass and lump, neck (principal)
CPT/HCPCS: 76536

== ENCOUNTER → 2025-09-13 08:21 | Outpatient (BNV) | payer OTHER, SELFPAY | PROVIDERS: PCP Internal Medicine; Visit Provider Radiology Body Imaging | DX: R22.1 Localized swelling, mass and lump, neck (principal) | CPT/HCPCS: 76536 ==